=== PATIENT | male | born 1970 | race Caucasian/White ===

== ENCOUNTER 2020-04-02 10:09 | Emergency (ER) | payer SELFPAY ==
[~2020-04-02] VITALS: Ht 178 cm; Wt 88.5 kg
--- NOTE | 2020-04-02 10:26 | ED General ---
General Stated Complaint: CP;SOA Source of Information: Patient Exam Limitations: Language Barrier History of Present Illness Date Seen by Provider: Apr 02, 2020 Time Seen by Provider: 10:26 Allergies and Home Medications Allergies Coded Allergies: No Known Drug Allergies (Unverified , 04/02/20) Home Medications Doxycycline Hyclate 100 Mg Tablet, 100 MG PO BID Prescribed by: JYOTHI GOMEZ on 04/02/20 1202 Methylprednisolone 4 Mg Tab.ds.pk, 4 MG PO UD PER DOSE PACK INSTRUCTIONS Prescribed by: JYOTHI GOMEZ on 04/02/20 1202 Patient Home Medication List Home Medication List Reviewed: Yes Review of Systems Review of Systems Constitutional: No chills, No fever; malaise; No weakness EENTM: see HPI Respiratory: No cough; short of breath Cardiovascular: see HPI Gastrointestinal: diarrhea; No nausea, No vomiting Genitourinary: no symptoms reported Skin: no symptoms reported Psychiatric/Neurological: No Symptoms Reported Hematologic/Lymphatic: No Symptoms Reported Past Oltnqbl-Tqmiec-Xdscfk Hx Past Med/Social Hx: Reviewed Nursing Past Med/Soc Hx Physical Exam Vital Signs Vital Signs - First Documented 04/02/20 10:10 Temp 37.7 Pulse 89 Resp 26 B/P (MAP) 127/81 (96) Pulse Ox 92 O2 Delivery Room Air Capillary Refill : Height, Weight, BMI Height: '" Weight: lbs. oz. kg; BMI Method: General Appearance: No Apparent Distress, WD/WN Neck: Non Tender Respiratory: Decreased Breath Sounds; No Wheezing Cardiovascular: Regular Rate, Rhythm Gastrointestinal: Non Tender, Soft Neurologic/Psychiatric: Alert, Oriented x3, Normal Mood/Affect, puller out II-XII Norm as Tested Skin: Normal Color, Warm/Dry Focused Exam Lactate Level 04/02/20 10:28: Lactic Acid Level 0.80 Lactic Acid Level Progress/Results/Core Measures Suspected Sepsis SIRS Temperature: Pulse: Respiratory Rate: Laboratory Tests 04/02/20 10:28: White Blood Count 9.7 Blood Pressure / Mean: 04/02/20 10:28: Lactic Acid Level 0.80 Laboratory Tests 04/02/20 10:28: Creatinine 0.68, INR Comment 1.0, Platelet Count 152, Total Bilirubin 0.5 Results/Orders Lab Results Laboratory Tests Test 04/02/20 10:28 Range/Units White Blood Count 9.7 4.3-11.0 10^3/uL Red Blood Count 4.18 L 4.35-5.85 10^6/uL Hemoglobin 13.1 L 13.3-17.7 G/DL Hematocrit 37 L 40-54 % Mean Corpuscular Volume 90 80-99 FL Mean Corpuscular Hemoglobin 31 25-34 PG Mean Corpuscular Hemoglobin Concent 35 32-36 G/DL Red Cell Distribution Width 12.9 10.0-14.5 % Platelet Count 152 130-400 10^3/uL Mean Platelet Volume 10.6 H 7.4-10.4 FL Neutrophils (%) (Auto) 68 42-75 % Lymphocytes (%) (Auto) 18 12-44 % Monocytes (%) (Auto) 14 H 0-12 % Eosinophils (%) (Auto) 0 0-10 % Basophils (%) (Auto) 0 0-10 % Neutrophils # (Auto) 6.6 1.8-7.8 X 10^3 Lymphocytes # (Auto) 1.7 1.0-4.0 X 10^3 Monocytes # (Auto) 1.3 H 0.0-1.0 X 10^3 Eosinophils # (Auto) 0.0 0.0-0.3 10^3/uL Basophils # (Auto) 0.0 0.0-0.1 10^3/uL Prothrombin Time 13.2 12.2-14.7 SEC INR Comment 1.0 0.8-1.4 Activated Partial Thromboplast Time 33 24-35 SEC Fibrinogen 756 H 221-496 MG/DL Sodium Level 132 L 135-145 MMOL/L Potassium Level 4.1 3.6-5.0 MMOL/L Chloride Level 101 98-107 MMOL/L Carbon Dioxide Level 22 21-32 MMOL/L Anion Gap 9 5-14 MMOL/L Blood Urea Nitrogen 8 7-18 MG/DL Creatinine 0.68 0.60-1.30 MG/DL Estimat Glomerular Filtration Rate > 60 BUN/Creatinine Ratio 12 Glucose Level 116 H 70-105 MG/DL Lactic Acid Level 0.80 0.50-2.00 MMOL/L Calcium Level 8.4 L 8.5-10.1 MG/DL Corrected Calcium 8.7 8.5-10.1 MG/DL Total Bilirubin 0.5 0.1-1.0 MG/DL Aspartate Amino Transf (AST/SGOT) 85 H 5-34 U/L Alanine Aminotransferase (ALT/SGPT) 97 H 0-55 U/L Alkaline Phosphatase 65 40-136 U/L Lactate Dehydrogenase 536 H 125-220 U/L Troponin I < 0.028 <0.028 NG/ML C-Reactive Protein High Sensitivity 7.94 H 0.00-0.50 MG/DL Total Protein 7.1 6.4-8.2 GM/DL Albumin 3.6 3.2-4.5 GM/DL My Orders Orders - GOMEZ,JYOTHI L DO Vital Signs: Every 4 Hours (Or (04/02/20 10:40) Monitor-Rhythm Ecg Trace Only (04/02/20 10:40) Ed Iv/Invasive Line Start (04/02/20 10:40) Cbc With Automated Diff (04/02/20 10:40) Comprehensive Metabolic Panel (04/02/20 10:40) Ferritin (04/02/20 10:40) LDH (04/02/20 10:40) Hs C Reactive Protein (04/02/20 10:40) Troponin I (04/02/20 10:40) Lactic Acid Analyzer (04/02/20 10:40) Protime With Inr (04/02/20 10:40) Partial Thromboplastin Time (04/02/20 10:40) Fibrinogen (04/02/20 10:40) Ekg Tracing (04/02/20 10:40) Chest 1 View, Ap/Pa Only (04/02/20 10:40) Coronavirus Sars-Cov-2 So 2018 (04/02/20 10:51) Dexamethasone Injection (Decadron Inject (04/02/20 11:00) Rx-Albuterol Inhaler (Rx-Proair) (04/02/20 10:53) Albuterol Inhaler (Ventolin Hfa) (04/02/20 11:00) Medications Given in ED Current Medications Medications Dose Ordered Sig/Shayla Route Start Time Stop Time Status Last Admin Dose Admin Albuterol Sulfate 2 PUFFS RTQ4HR PRN IH 04/02/20 11:00 04/02/20 13:00 DC 04/02/20 11:13 8 GM Dexamethasone Sodium Phosphate 10 mg ONCE ONCE IV 04/02/20 11:00 04/02/20 11:01 DC 04/02/20 11:11 10 MG Vital Signs/I&O 04/02/20 04/02/20 10:10 13:00 Temp 37.7 Pulse 89 87 Resp 26 16 B/P (MAP) 127/81 (96) 127/82 Pulse Ox 92 93 O2 Delivery Room Air Room Air Capillary Refill : Progress Note : Progress Note Patient with likely coronavirus. He has bilateral infiltrates on x-ray that is consistent with coronavirus x-ray. His oxygen saturation is running mid upper 90s. I will discharge him with doxycycline, Solu-Medrol. He was given instructions to return to the ER as needed. I did use an seismic interpreter to review his x-ray, labs, medications and need to return to the ER. Patient voiced understanding. I also discussed with him that he should consider himself p ositive for coronavirus based on his lab work and x-rays, and he will be tested and notified of the results if positive. Departure Impression Primary Impression: Pneumonia Qualified Codes: J18.1 - Lobar pneumonia, unspecified organism Additional Impression: Viral respiratory illness Disposition: 01 HOME, SELF-CARE Condition: Stable Departure-Patient Inst. Patient Instructions: Coronavirus Disease 2019 (COVID-19) (DC), Pneumonia in Adults Scripts Methylprednisolone (Methylprednisolone Dose Pack) 4 Mg Tab.ds.pk 4 MG PO UD for 6 Days, #21 PKG PER DOSE PACK INSTRUCTIONS Prov: JYOTHI GOMEZ DO 04/02/20 Doxycycline Hyclate (Doxycycline Hyclate) 100 Mg Tablet 100 MG PO BID, #20 TAB 0 Refills Prov: JYOTHI GOMEZ DO 04/02/20 JYOTHI GOMEZ DO Apr 02, 2020 10:26
[2020-04-02] MEDS ORDERED: RT-ALBUTEROL/IPRATROPIUM 3 ML (DUONEB) VIAL IH PRN (10:45)
[2020-04-02 10:51] LABS: BASOPHILS % (AUTO) 0 % (0-10); EOSINOPHILS % (AUTO) 0 % (0-10); HEMATOCRIT 37 % (40-54); HEMOGLOBIN 13.1 G/DL (13.3-17.7); LYMPHOCYTES # (AUTO) 1.7 X 10^3 (1.0-4.0); LYMPHOCYTES % (AUTO) 18 % (12-44); MEAN CORPUSCULAR HEMOGLOBIN 31 PG (25-34); MEAN CORPUSCULAR HGB CONC 35 G/DL (32-36); MEAN CORPUSCULAR VOLUME 90 FL (80-99); MEAN PLATELET VOLUME 10.6 FL (7.4-10.4); MONOCYTES # (AUTO) 1.3 X 10^3 (0.0-1.0); MONOCYTES % (AUTO) 14 % (0-12); NEUTROPHILS # (AUTO) 6.6 X 10^3 (1.8-7.8); NEUTROPHILS % (AUTO) 68 % (42-75); PLATELET COUNT 152 10^3/uL (130-400); RED CELL DISTRIBUTION WIDTH 12.9 % (10.0-14.5); WHITE BLOOD COUNT 9.7 10^3/uL (4.3-11.0)
[2020-04-02] MEDS ORDERED: DEXAMETHASONE 10 MG/ML (DECADRON) 1 ML VIAL IV ONE (11:00)
[2020-04-02] MEDS ORDERED: RT-ALBUTEROL INHALER HFA (VENTOLIN HFA) 8 GM IH PRN (11:00)
--- NOTE | 2020-04-02 11:00 | NUR ---
ASSUMED CARE OF PT
[2020-04-02 11:02] LABS: ALBUMIN 3.6 GM/DL (3.2-4.5); CHLORIDE 101 MMOL/L (98-107); POTASSIUM 4.1 MMOL/L (3.6-5.0); SODIUM 132 MMOL/L (135-145)
[2020-04-02 11:03] LABS: CALCIUM 8.4 MG/DL (8.5-10.1)
[2020-04-02 11:04] LABS: GLUCOSE 116 MG/DL (70-105); TOTAL PROTEIN 7.1 GM/DL (6.4-8.2)
[2020-04-02 11:06] LABS: BILIRUBIN,TOTAL 0.5 MG/DL (0.1-1.0); CARBON DIOXIDE 22 MMOL/L (21-32)
[2020-04-02 11:08] LABS: ALKALINE PHOSPHATASE 65 U/L (40-136); CREATININE SERUM 0.68 MG/DL (0.60-1.30); GFR ESTIMATED > 60
[2020-04-02 11:09] LABS: BUN/CREATININE RATIO 12
[2020-04-02 11:11] LABS: ALANINE AMINOTRANSFERASE 97 U/L (0-55)
[2020-04-02] MEDS: RX-ALBUTEROL INHALER 8 GM HFA (VENTOLIN) IH STA ×2 (11:11→11:13)
--- NOTE | 2020-04-02 11:43 | Diagnostic Imaging Report ---
INDICATION: Shortness of air. TIME OF EXAM: 11:07 AM No prior studies are available for comparison. FINDINGS: Right hemidiaphragm is elevated. There appears to be some airspace density right mid and lower lung field as well as left mid lung. No effusion or pneumothorax is identified. IMPRESSION: Patchy bilateral airspace infiltrate suggestive of pneumonia. Dictated by: Dictated on workstation # [id number]
--- NOTE | 2020-04-02 11:57 | NUR ---
DR GOMEZ NOTIFIED OF LABS BEING BACK.
[2020-04-02] MEDS ORDERED: METH4TAB10 PO (12:02)
[2020-04-02] MEDS ORDERED: DOXY100T2 PO (12:02)
[2020-04-02 12:37] LABS: PROTHROMBIN TIME PATIENT 13.2 SEC (12.2-14.7)
[2020-04-02 13:00] VITALS: BP 127/82
== END 2020-04-02 13:00 | disposition home or self-care (01) ==
LOC: EDBD 10:11 → ER 10:11
DX: U07.1 COVID-19 (principal); J12.89 Other viral pneumonia; J98.8 Other specified respiratory disorders
CPT/HCPCS: 71045; 80053; 82728; 83605; 83615; 84484; 85025; 85384; 85610; 85730; 86141; 93005; 93041; 96374; 99284; U0002; 36415; 87635

== ENCOUNTER 2021-06-12 06:41 | Emergency (ER) | payer SELFPAY ==
[~2021-06-12] VITALS: Ht 155 cm; Wt 84.4 kg
[~2021-06-12 06:41] MED LIST: DOXY100T2 PO; METH4TAB10 PO
--- OUTSIDE RECORDS SUMMARY | 2021-06-12 06:48 | XMS REPORT | Clinical Summary ---
Author Author [facility] Organization [facility] Address Unknown Phone Unavailable Care Team Providers Care Fruit Culler Name Role Phone No Pcp, Na PCP Unavailable Source Comments Some departments are not documenting in the electronic medical record. If you d o not see the information that you expected, contact Release of Information in [facility] [employer] Information Management department at [phone] for further assistan ce in locating additional records.[facility] Allergies No Known Active Allergies Medications End Date Status Medication Sig Dispensed Refills Start Date Active adek multivitamin (MVW Take by 0 COMPLETE) 3,000-800 mouth daily. 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 application of wound vac pe rformed by Zach Elias MD at [facility] Medical devices from this surgery are i n the Implants section. BYPASS GRAFT 07/24/2018 Arm Upper/Left LEFT BRACHIAL A RTERY RECONSTRUCTION WITH INTERPOSITION RIGHT GREAT SAPHENOUS VEI N GRAFT performed by Darshan Jurado MD at [facility] FASCIOTOMY 07/24/2018 Lower Arm/Left DECOMPRESSION F ASCIOTOMY FOREARM/ WRIST FLEXOR/ EXTENSOR COMPARTMENT WITHOUT DEBRIDEMEN T NONVIABLE MUSCLE/ NERVE performed by Rudi Elias MD at [facility] ELBOW SURGERY 08/14/2019 Elbow/Left CONTRACTURE REL EASE LEFT ELBOW performed by Rex Agarwal MD at [facility] NERVE SURGERY 08/14/2019 Elbow/Left ULNAR NERVE TRA NSPOSITION LEFT ELBOW performed by Rex Agarwal MD at [facility] HARDWARE REMOVAL 07/08/2020 Lower Arm/Left REMOVAL OF SIMMONS RDWARE LEFT HAND performed by Rex Agarwal MD at [facility] OR Medical devices from this surgery are i n the Implants section. NERVE SURGERY 07/08/2020 Lower Arm/Left LEFT HAND SENSO RY NERVE TRANSFER performed by Rex Agarwal MD at [facility] OR Medical devices from this surgery are i n the Implants section. Medical History Medical History Date Comments Rhabdomyolysis GERD (gastroesophageal reflux disease) Social History Date Tobacco Use Types Packs/Day Years Used Never Smoker Smokeless Tobacco: Never Used Comments Alcohol Use Standard Drinks/Week No 0 (1 standard drink = 0.6 o z pure alcohol) Sex Assigned at Date Recorded Male 02/11/2020 3:45 PM CDT Last Filed Vital Signs Reading Time Taken Comments Vital Sign 113/93 07/08/2020 4:15 PM CDT Blood Pressure 89 07/08/2020 4:15 PM CDT Pulse 36.5 C (97.7 F) 07/08/2020 4:15 PM CDT Temperature 20 08/10/2018 2:17 PM [employer] Respiratory Rate 97% 07/08/2020 4:00 PM CDT Oxygen Saturation - - Inhaled Oxygen Concentration 84.4 kg (186 lb) 02/11/2021 2:08 PM CDT Weight 170.2 cm (5' 7.01") 02/11/2021 2:08 PM CDT Height 29.12 02/11/2021 2:08 PM CDT Body Mass Index Plan of Treatment Health Maintenance Due Date Last Done Comments HIV SCREENING 1984 DTAP/TDAP VACCINES (1 - 12/03/1987 Tdap) HEPATITIS C SCREENING 12/03/1987 PHYSICAL (COMPREHENSIVE) 12/03/1987 EXAM COLORECTAL CANCER 12/03/2019 SCREENING SHINGLES RECOMBINANT 12/03/2019 VACCINE (1 of 2) INFLUENZA VACCINE 07/03/2021 Implants Device Identifier Shelf Expiration Date Model / Serial / L ot Implanted Type Area Manufactur er [id number] / N/A / N/A Plate 72mm Stainless Steel 2.7mm Left: Ulmynor ZIMM ER Screw [place] Lock System - Sn/A SHELLIE US Implanted: Qty: 1 on 07/27/2018 by Zach Elias MD at [facility] [id number] / N/A / N/A Screw Bone 2.7mm 2.5mm 16mm Left: Ulna SHELLIE Stainless Steel Cortical Self - SHELLIE US Sn/A Implanted: Qty: 3 on 07/27/2018 by Zach Elias MD at [facility] [id number] / N/A / N/A Screw Bone 2.7mm 2.5mm 18mm Left: Ulna SHELLIE Stainless Steel Small Hexagon - SHELLIE US Sn/A Implanted: Qty: 2 on 07/27/2018 by Zach Elias MD at [facility] [id number] / N/A / N/A Plate 105mm Stainless Steel 3.5mm Left: Ulna ZIM LEWIS Screw Small Fragment - Sn/A SHELLIE US Implanted: Qty: 1 on 07/27/2018 by Zach Elias MD at [facility] [id number] / N/A / N/A Screw Bone 3.5mm 2.5mm 18mm Left: Ulna SHELLIE Stainless Steel Small Hexagon - SHELLIE US Sn/A Implanted: Qty: 2 on 07/27/2018 by Zach Elias MD at [facility] [id number] / N/A / N/A Screw Bone 3.5mm 2.5mm 20mm Left: Ulna SHELLIE Stainless Steel Self Tap Small - SHELLIE US Sn/A Implanted: Qty: 1 on 07/27/2018 by Zach Elias MD at [facility] [id number] / N/A / N/A Screw Bone 3.5mm 2.5mm 22mm Left: Ulna SHELLIE Stainless Steel Small Hexagon - SHELLIE US Sn/A Implanted: Qty: 1 on 07/27/2018 by Zach Elias MD at [facility] Device Identifier Shelf Expiration Date Model / Serial / L ot Explanted Type Area Manufactur er [id number]-71-025 / [id number]-71-025 / [id number]-71-025 Wire Fixation .062mm 6in Argelia Left: Hand KE Y Stainless Steel Trocar - [id number]-[id number] SURGICAL Implanted: Qty: 1 on 03/18/2020 by INC eRx Agarwal MD at [facility] Explanted: Qty: 1 on 07/08/2020 at [facility] KI-71-023 / [id number]-71-023 / [id number]-[id number] Wire Fixation 6in .045in Steinmann Left: Hand KE Y Argelia 2 Trocar - [id number] SURGICAL Implanted: Qty: 4 on 03/18/2020 by INC Rex Agarwal MD at [facility] Explanted: Qty: 4 on 07/08/2020 at [facility] Results Not on filefrom Last 3 Months Insurance Type Payer Benefit Subscriber ID Effective Phone Address Plan / Dates Group Indemnity WORKERS COMP GENERIC [id number] 2018 WORK COMP -Present -2006 [employer] Personal/F Self [address] [place] (Home) [place] [address] 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 needed
[2021-06-12] MEDS ORDERED: OMEP40CA6 PO (07:14)
[2021-06-12] MEDS ORDERED: AMOX875T2 PO (07:14)
[2021-06-12] MEDS ORDERED: biaxin (07:14)
[2021-06-12 07:26] LABS: CLARITY,URINE CLEAR; COLOR,URINE YELLOW; GLUCOSE, URINE (UA) NEGATIVE (NEGATIVE); KETONES,URINE TRACE (NEGATIVE); LEUKOCYTE ESTERASE ,URINE NEGATIVE (NEGATIVE); NITRITE,URINE NEGATIVE (NEGATIVE); PROTEIN,URINE 1+ (NEGATIVE)
[2021-06-12 07:27] LABS: MEAN CORPUSCULAR VOLUME 86 fL (80-99)
[2021-06-12 07:29] LABS: BASOPHILS # (AUTO) 0.1 10^3/uL (0.0-0.1); BASOPHILS % (AUTO) 0 % (0-10); EOSINOPHILS % (AUTO) 0 % (0-10); HEMATOCRIT 40 % (40-54); HEMOGLOBIN 12.8 g/dL (13.3-17.7); LYMPHOCYTES # (AUTO) 4.4 10^3/uL (1.0-4.0); LYMPHOCYTES % (AUTO) 24 % (12-44); MEAN CORPUSCULAR HEMOGLOBIN 27 pg (25-34); MEAN CORPUSCULAR HGB CONC 32 g/dL (32-36); MONOCYTES # (AUTO) 7.3 10^3/uL (0.0-1.0); MONOCYTES % (AUTO) 40 % (0-12); NEUTROPHILS # (AUTO) 5.1 10^3/uL (1.8-7.8); NEUTROPHILS % (AUTO) 28 % (42-75); WHITE BLOOD COUNT 18.3 10^3/uL (4.3-11.0)
[2021-06-12 07:32] LABS: PLATELET COUNT 15 10^3/uL (130-400)
[2021-06-12 07:37] LABS: ALBUMIN 3.9 GM/DL (3.2-4.5)
[2021-06-12 07:39] LABS: TOTAL PROTEIN 7.4 GM/DL (6.4-8.2)
[2021-06-12 07:41] LABS: BILIRUBIN,TOTAL 0.6 MG/DL (0.1-1.0)
[2021-06-12 07:41] LABS: BILIRUBIN,URINE 1+ (NEGATIVE); WBC,URINE 0-2 /HPF
[2021-06-12 07:42] LABS: BACTERIA,URINE FEW /HPF; SQUAMOUS EPITHELIAL CELL,UR 0-2 /HPF
[2021-06-12 07:43] LABS: CREATININE SERUM 0.83 MG/DL (0.60-1.30)
[2021-06-12] MEDS ORDERED: PANTOPRAZOLE 40 MG (PROTONIX) VIAL IV ONE (07:45)
[2021-06-12] MEDS ORDERED: NS IV 1000 ML 1,000 ML IV SCH (07:45)
[2021-06-12 08:06] LABS: BASOPHILS # (AUTO) 0.1 10^3/uL (0.0-0.1); BASOPHILS % (AUTO) 0 % (0-10)
[2021-06-12 08:08] LABS: EOSINOPHILS % (AUTO) 0 % (0-10); HEMATOCRIT 37 % (40-54); HEMOGLOBIN 11.9 g/dL (13.3-17.7); LYMPHOCYTES % (AUTO) 19 % (12-44); MEAN CORPUSCULAR HEMOGLOBIN 27 pg (25-34); MEAN CORPUSCULAR HGB CONC 32 g/dL (32-36); MEAN CORPUSCULAR VOLUME 86 fL (80-99); MONOCYTES # (AUTO) 7.2 10^3/uL (0.0-1.0); MONOCYTES % (AUTO) 46 % (0-12); NEUTROPHILS # (AUTO) 4.4 10^3/uL (1.8-7.8); NEUTROPHILS % (AUTO) 28 % (42-75); WHITE BLOOD COUNT 15.7 10^3/uL (4.3-11.0)
[2021-06-12 08:16] LABS: PLATELET COUNT 12 10^3/uL (130-400)
--- NOTE | 2021-06-12 08:35 | Diagnostic Imaging Report ---
EXAM: ACUTE ABD SERIES INDICATION: Abdominal pain. COMPARISON: Chest radiograph 04/02/2020. FINDINGS: Mild atelectasis or infiltrate left lung base. Normal heart size and central pulmonary vascularity. No pleural effusion or pneumothorax. No acute osseous findings. No free intraperitoneal air. Nonspecific bowel gas pattern. No suspicious radiopaque densities. IMPRESSION: 1. No acute radiographic findings in the abdomen. 2. Mild atelectasis or infiltrate in the left lung base. Dictated by: Dictated on workstation # [id number]
[2021-06-12] MEDS ORDERED: IOHEXOL 350 MG/ML 100 ML (OMNIPAQUE 350) VIAL IV ONE (08:45)
[2021-06-12] MEDS ORDERED: NS 100 ML (IVPB) BAG IV ONE (08:45)
[2021-06-12] MEDS ORDERED: HOLD METFORMIN - RECEIVED CONTRAST 20 ML VIAL IV SCH (08:45)
--- NOTE | 2021-06-12 08:58 | Diagnostic Imaging Report ---
PROCEDURE: CT abdomen and pelvis with contrast. TECHNIQUE: Multiple contiguous axial images were obtained through the abdomen and pelvis after administration of intravenous contrast. Auto Exposure Controls were utilized during the CT exam to meet ALARA standards for radiation dose reduction. All CT scans use one or more of the following dose optimizing techniques: automated exposure control, MA and/or KvP adjustment based on patient size and exam type or iterative reconstruction. INDICATION: Abdominal pain Mild low-density in the liver is likely due to steatosis. Otherwise, there is no evidence of focal hepatic, gallbladder, pancreatic, adrenal gland or splenic abnormality. Kidneys are also unremarkable. There is no free fluid within the abdomen or pelvis. No pathologically enlarged adenopathy is seen. The appendix has a normal appearance. Unopacified bladder is unremarkable in appearance. There is no evidence of aortic aneurysm or dissection. IMPRESSION: No acute abnormality. Dictated by: Dictated on workstation # [id number]
--- NOTE | 2021-06-12 09:09 | ED Abdominal Pain ---
General Chief Complaint: Abdominal/GI Problems Stated Complaint: ABD PAIN Nursing Triage Note: c/o epigastric pain x15 days, seen at [facility] for same 06/06/21 started on abx et. prilosec. Source of Information: Patient (PT SPEAKS MINIMAL MONTSERRATIAN--USING LANGUAGE LINE/EDITOR TRADE JOURNAL MARICHUY ON CELL PHONE) Exam Limitations: Language Barrier History of Present Illness Date Seen by Provider: Jun 12, 2021 Time Seen by Provider: 07:14 Initial Comments PT ARRIVES VIA POV FROM HOME C/O EPIGASTRIC ABDOMINAL PAIN X 15 DAYS NOTHING WORSENS OR IMPROVES PAIN PAIN IS CONSTANT + NAUSEA, NO VOMITING HAD NORMAL BM THIS AM NO URINARY SYMPTOMS NO FEVER PT HAS BEEN EATING AND DRINKING NORMALLY PT HAS RX'S FOR AMOXIL, CLARITHROMYCIN, OMEPRAZOLE DATED 06/06/21 FROM [facility] PT DOES NOT KNOW WHAT HE WAS DX WITH AND CANNOT STATE WHAT TESTS WERE DONE. DENIES ANY HISTORY OF ABDOMINAL SURGERIES OR GI PROBLEMS PCP: [facility] Allergies and Home Medications Allergies Coded Allergies: No Known Drug Allergies (Unverified , 04/02/20) Patient Home Medication List Home Medication List Reviewed: Yes Amoxicillin (Amoxicillin) 875 Mg Tablet, Unknown Dose PO, (Reported) Entered as Reported by: ALETHEA BUSBY on 06/12/21713 Last Action: New Order Doxycycline Hyclate (Doxycycline Hyclate) 100 Mg Tablet, 100 MG PO BID Prescribed by: JYOTHI GOMEZ on 04/02/20 1202 Methylprednisolone (Methylprednisolone Dose Pack) 4 Mg Tab.ds.pk, 4 MG PO UD Prescribed by: JYOTHI GOMEZ on 04/02/20 1202 Omeprazole (Omeprazole) 40 Mg Capsule.dr, Unknown Dose PO, (Reported) Entered as Reported by: ALETHEA BUSBY on 06/12/21713 Last Action: New Order [biaxin] , (Reported) Entered as Reported by: ALETHEA BUSBY on 06/12/21713 Last Action: New Order Review of Systems Review of Systems Constitutional: no symptoms reported EENTM: No Symptoms Reported Respiratory: No Symptoms Reported Cardiovascular: No Symptoms Reported Gastrointestinal: See HPI, Abdominal Pain; Denies Constipated, Denies Diarrhea; Nausea; Denies Poor Appetite, Denies Vomiting Genitourinary: No Symptoms Reported Musculoskeletal: no symptoms reported; No back pain Skin: no symptoms reported Psychiatric/Neurological: No Symptoms Reported Endocrine: No Symptoms Reported Hematologic/Lymphatic: No Symptoms Reported; Denies Anemia, Denies Blood Clots, Denies Easy Bleeding, Denies Easy Bruising, Denies Swollen Glands Past Cdbidui-Lqqlwt-Wgnmbp Hx Patient Social History Tobacco Use?: No Use of E-Cig and/or Vaping dev: No Substance use?: No Alcohol Use?: No Pt feels they are or have been: No Immunizations Up To Date Tetanus Booster (TDap): Unknown First/Initial COVID19 Vaccinat: 06/06/21 Seasonal Allergies Seasonal Allergies: No Past Medical History Surgery/Hospitalization HX: MULTIPLE ORTHOPEDIC SURGERIES RELATED TO AN ACCIDENT 07/2018--AT [facility]: -LEFT FOREARM FX/EXTERNAL AND INTERNAL FIXATION 07/27/2018 -LEFT FOREARM /WRIST FLEXOR AND EXTENSOR COMPARTMENT FASCIOTOMY 07/24/18 -SKIN GRAFT FROM LEFT THIGH TO LEFT FORARM -LEFT BRACHIAL ARTERY RECONSTRUCTION WITH BYPASS GRAFT FROM RIGHT GREAT SAPHENOUS VEIN 07/24/18 -LEFT ELBOW CONTRACTURE RELEASE 08/14/19 -LEFT ULNAR NERVE TRANSPOSITION 08/14/19 -LEFT HAND FX/ORIF 03/18/20 -REMOVAL OF HARDWARE LEFT HAND 07/08/2020 -LEFT HAND SENSORY NERVE TRANSFER 07/08/2020 Surgeries: Yes Orthopedic Respiratory: No Cardiac: No Neurological: No Genitourinary: No Gastrointestinal: Yes Gastroesophageal Reflux Musculoskeletal: Yes (EXTENISVE ORTHO SURGERIES LEFT ARM DUE TO TRAUMA WITH RHABDOMYOLYSIS) Endocrine: No HEENT: No Cancer: No Psychosocial: No Integumentary: No Blood Disorders: No Physical Exam Vital Signs Vital Signs - First Documented 06/12/21 07:05 Temp 36.5 Pulse 111 Resp 18 B/P (MAP) 119/82 (94) Pulse Ox 99 O2 Delivery Room Air Capillary Refill : Less Than 3 Seconds Height/Weight/BMI Height: '" Weight: lbs. oz. kg; 35.00 BMI Method: General Appearance: WD/WN, no apparent distress, other (DOES NOT APPEAR ILL OR TO BE IN ANY DISCOMFORT OR DISTRESS.) HEENT: PERRL/EOMI; No scleral icterus (R), No scleral icterus (L), No pale conjunctivae (R), No pale conjunctivae (L) Neck: normal inspection Respiratory: normal breath sounds, no respiratory distress, no accessory muscle use Cardiovascular: normal peripheral pulses, regular rate, rhythm, no edema, no JVD, no murmur Gastrointestinal: normal bowel sounds, soft, no organomegaly, no pulsatile mass; No distended, No guarding, No rebound; tenderness (VERY MILD EPIGASTRIC TENDERNESS); No hernia, No mass Extremities: normal range of motion, no pedal edema, other (EXTENSIVE POST OP CHANGES TO LEFT ARM) Back: normal inspection, no CVA tenderness, no vertebral tenderness Neurologic/Psychiatric: 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, no motor/sensory deficits, alert, normal mood/affect, oriented x 3 Skin: normal color (PT IS ), warm/dry; No ecchymosis, No mottled, No rash; other (NO PETECHIAE OR PURPURA) Progress/Results/Core Measures Results/Orders Lab Results Laboratory Tests Test 06/12/21 07:18 06/12/21 07:19 06/12/21 08:03 06/12/21 10:08 Range/Units White Blood Count 18.3 H 15.7 H 4.3-11.0 10^3/uL Red Blood Count 4.69 4.34 4.30-5.52 10^6/uL Hemoglobin 12.8 L 11.9 L 13.3-17.7 g/dL Hematocrit 40 37 L 40-54 % Mean Corpuscular Volume 86 86 80-99 fL Mean Corpuscular Hemoglobin 27 27 25-34 pg Mean Corpuscular Hemoglobin Concent 32 32 32-36 g/dL Red Cell Distribution Width 14.7 H 14.6 H 10.0-14.5 % Platelet Count 15 *L 12 *L 130-400 10^3/uL Mean Platelet Volume 9.0-12.2 fL Immature Granulocyte % (Auto) 8 6 % Neutrophils (%) (Auto) 28 L 28 L 42-75 % Lymphocytes (%) (Auto) 24 19 12-44 % Monocytes (%) (Auto) 40 H 46 H 0-12 % Eosinophils (%) (Auto) 0 0 0-10 % Basophils (%) (Auto) 0 0 0-10 % Neutrophils # (Auto) 5.1 4.4 1.8-7.8 10^3/uL Lymphocytes # (Auto) 4.4 H 3.0 1.0-4.0 10^3/uL Monocytes # (Auto) 7.3 H 7.2 H 0.0-1.0 10^3/uL Eosinophils # (Auto) 0.0 0.0 0.0-0.3 10^3/uL Basophils # (Auto) 0.1 0.1 0.0-0.1 10^3/uL Immature Granulocyte # (Auto) 1.5 H 1.0 H 0.0-0.1 10^3/uL Neutrophils % (Manual) 33 % Lymphocytes % (Manual) 23 % Monocytes % (Manual) 35 % Promonocyte % 3 % Eosinophils % (Manual) 0 % Basophils % (Manual) 0 % Band Neutrophils 0 % Blast Cells 6 % Percent Immature Platelet Fraction 13.1 H 13.9 H 0.0-7.6 % Anisocytosis SLIGHT Sodium Level 136 135-145 MMOL/L Potassium Level 4.0 3.6-5.0 MMOL/L Chloride Level 105 98-107 MMOL/L Carbon Dioxide Level 22 21-32 MMOL/L Anion Gap 9 5-14 MMOL/L Blood Urea Nitrogen 10 7-18 MG/DL Creatinine 0.83 0.60-1.30 MG/DL Estimat Glomerular Filtration Rate 98 BUN/Creatinine Ratio 12 Glucose Level 107 H 70-105 MG/DL Calcium Level 9.0 8.5-10.1 MG/DL Corrected Calcium 9.1 8.5-10.1 MG/DL Total Bilirubin 0.6 0.1-1.0 MG/DL Aspartate Amino Transf (AST/SGOT) 28 5-34 U/L Alanine Aminotransferase (ALT/SGPT) 42 0-55 U/L Alkaline Phosphatase 86 40-136 U/L Total Protein 7.4 6.4-8.2 GM/DL Albumin 3.9 3.2-4.5 GM/DL Amylase Level 40 25-125 U/L Lipase 28 8-78 U/L Urine Color YELLOW Urine Clarity CLEAR Urine pH 6.0 5-9 Urine Specific [place] >=1.030 1.016-1.022 Urine Protein 1+ H NEGATIVE Urine Glucose (UA) NEGATIVE NEGATIVE Urine Ketones TRACE H NEGATIVE Urine Nitrite NEGATIVE NEGATIVE Urine Bilirubin 1+ H NEGATIVE Urine Urobilinogen 1.0 < = 1.0 MG/DL Urine Leukocyte Esterase NEGATIVE NEGATIVE Urine RBC (Auto) 3+ H NEGATIVE Urine RBC 10-25 H /HPF Urine WBC 0-2 /HPF Urine Squamous Epithelial Cells 0-2 /HPF Urine Crystals NONE /LPF Urine Bacteria FEW H /HPF Urine Casts NONE /LPF Urine Mucus MODERATE H /LPF Urine Culture Indicated NO SARS-CoV-2 RNA (RT-PCR) Not Detected Not Detecte My Orders Orders - MIHIR CURTIS DO Ed Iv/Invasive Line Start (06/12/21 07:14) Amylase (06/12/21 07:14) Cbc With Automated Diff (06/12/21 07:14) Comprehensive Metabolic Panel (06/12/21 07:14) Lipase (06/12/21 07:14) Ua Culture If Indicated (06/12/21 07:14) Manual Differential (06/12/21 07:18) Ed Iv/Invasive Line Start (06/12/21 07:36) Ns Iv 1000 Ml (Sodium Chloride 0.9%) (06/12/21 07:45) Pantoprazole Injection (Protonix Injecti (06/12/21 07:45) Cbc With Automated Diff (06/12/21 07:52) Ct Abdomen/Pelvis W (06/12/21 07:56) Acute Abd Series (06/12/21 07:56) Iohexol Injection (Omnipaque 350 Mg/Ml 1 (06/12/21 08:45) Received Contrast (Hold Metformin- Contr (06/12/21 08:45) Ns (Ivpb) (Sodium Chloride 0.9% Ivpb Bag (06/12/21 08:45) Covid 19 Inhouse Test (06/12/21 10:04) Isolation Central Supply Req (06/12/21 10:04) Medications Given in ED Vital Signs/I&O 06/12/21 06/12/21 07:05 14:14 Temp 36.5 36.5 Pulse 111 87 Resp 18 16 B/P (MAP) 119/82 (94) 112/60 Pulse Ox 99 96 O2 Delivery Room Air Room Air Blood Pressure Mean: 94 Progress Progress Note : Progress Note NO DETERIORATION IN PT'S CONDITION DURING ER STAY NO COMPLAINTS FOR REMAINDER OF ER STAY. Diagnostic Imaging Comments PER RADIOLOGIST REPORTS AT 0908: ABDOMEN XRAYS-- FINDINGS: Mild atelectasis or infiltrate left lung base. Normal heart size and central pulmonary vascularity. No pleural effusion or pneumothorax. No acute osseous findings. No free intraperitoneal air. Nonspecific bowel gas pattern. No suspicious radiopaque densities. IMPRESSION: 1. No acute radiographic findings in the abdomen. 2. Mild atelectasis or infiltrate in the left lung base. CT ABDOMEN/PELVIS-- Mild low-density in the liver is likely due to steatosis. Otherwise, there is no evidence of focal hepatic, gallbladder, pancreatic, adrenal gland or splenic abnormality. Kidneys are also unremarkable. There is no free fluid within the abdomen or pelvis. No pathologically enlarged adenopathy is seen. The appendix has a normal appearance. Unopacified bladder is unremarkable in appearance. There is no evidence of aortic aneurysm or dissection. IMPRESSION: No acute abnormality. Reviewed: Reviewed by Me Departure Communication (Admissions) 924--SPOKE WITH DR. CALLEJAS, SURGEON, HE WILL SEE PT IN OFFICE ON Tuesday--SPOKE WITH DR. DOMINGO, HEMATOLOGY/ONCOLOGY, HE ADVISES PERIPHERAL SMEAR 934--SPOKE WITH DR. ARMSTRONG, HOSPITALIST, ACCEPTS PT FOR ADMIT, AND WILL CONSULT DR. CALLEJAS FOR ENDOSCOPY 939--RECEIVED CALL FROM DR. KENDRICK, PATHOLOGIST, REGARDING PERIPHERAL SMEAR FINDINGS--6% BLASTS, SUSPICIOUS FOR HEMATOLOGIC MALIGNANCY. 946--SPOKE WITH DR. DOMINGO AGAIN, HE ADVISES TO TRANSFER PT TO [place] OR , HE WILL NOT BE ABLE TO GET ANY RESULTS FROM [facility] BIOPSY OVER THE WEEKEND 956--CALLED VIA DANIEL MCFADDEN, ON FULL DIVERSION 957--CALLED . ILL CALL BACK 1033--SPOKE WITH DR. PERES, DIAMOND FINISHING SUPERVISOR/ONCOLOGIST, ACCEPTS PT FOR ADMIT. THEY WILL CALL BACK WITH BED ASSIGNMENT. PLAN TO DO BONE [facility]OW BIOPSY TODAY AND WILL GET RESULTS BACK TODAY. 1128--CALLED , STILL NO BED ASSIGNMENT 1221--CALLED , STILL NO BED ASSIGNMENT 1330--BED HAS BEEN ASSIGNED AT . 1335--[facility] HAS BEEN DISPATCHED FOR TRANSPORT. UPDATED DR. ARMSTRONG THAT PT WAS BEING TRANSFERRED INSTEAD OF BEING ADMITTED HERE, FOR ABOVE REASONS Impression Primary Impression: Epigastric abdominal pain Additional Impressions: Thrombocytopenia Leukocytosis Disposition: XFER SHT-TRM HOSP Condition: Stable Transfer Transfer Reason: Exceeds level of care Transfer Facility: Method of Transfer: EMS Departure-Patient Inst. Referrals: NO,LOCAL PHYSICIAN (PCP) Primary Care Physician MIHIR CURTIS DO Jun 12, 2021 09:09
[2021-06-12 10:13] LABS: BAND NEUTROPHILS 0 %; BASOPHILS % (MANUAL) 0 %; BLAST CELLS 6 %; EOSINOPHILS % (MANUAL) 0 %; LYMPHOCYTES % (MANUAL) 23 %; MONOCYTES % (MANUAL) 35 %; NEUTROPHILS % (MANUAL) 33 %
[2021-06-12 10:19] LABS: ANISOCYTOSIS SLIGHT
[2021-06-12 14:14] VITALS: BP 112/60
== END 2021-06-12 14:14 | disposition short-term general hospital (02) ==
LOC: EDUNIT# 06:41 → ER 06:44
DX: R10.13 Epigastric pain (principal); D69.6 Thrombocytopenia, unspecified; D72.829 Elevated white blood cell count, unspecified; Z79.52 Long term (current) use of systemic steroids; Z20.822 Contact with and (suspected) exposure to COVID-19
CPT/HCPCS: 36415; 74022; 74177; 80053; 81000; 82150; 83690; 85007; 85025; 85027; 87636

== ENCOUNTER 2021-11-22 09:17 | Emergency (ER) | payer OTHER ==
[~2021-11-22] VITALS: Ht 167 cm; Wt 80.7 kg
[~2021-11-22 09:17] MED LIST changes: +AMOX875T2 PO; +OMEP40CA6 PO; +biaxin
[2021-11-22] MEDS ORDERED: cefTRIAXone 1 GM PRE-MIX 50 ML IV ONE (09:45)
[2021-11-22] MEDS ORDERED: ANTACID SUSP 30 ML UDC (MYLANTA) PO ONE (09:45)
[2021-11-22] MEDS ORDERED: LIDOCAINE 2% VISCOUS 15 ML UDC PO ONE (09:45)
[2021-11-22] MEDS ORDERED: fentaNYL INJ 100 MCG/2 ML AMP IVP ONE (09:45)
[2021-11-22] MEDS ORDERED: PANTOPRAZOLE 40 MG (PROTONIX) VIAL IV ONE (09:45)
[2021-11-22] MEDS ORDERED: NS IV 1000 ML 1,000 ML IV SCH ×2 (09:45)
[2021-11-22] MEDS ORDERED: metroNIDAZOLE 500MG/100ML IVPB 100 ML IV ONE (09:45)
[2021-11-22 09:51] LABS: EOSINOPHILS % (AUTO) 0 % (0-10); HEMOGLOBIN 11.8 g/dL (13.3-17.7)
--- NOTE | 2021-11-22 09:52 | ED Abdominal Pain ---
General Chief Complaint: Abdominal/GI Problems Stated Complaint: FEVER/STOMACH PAIN Nursing Triage Note: PT PRESENTS TO ED VIA POV FROM HOME WITH COMPLAINTS OF FEVER AND INTERMITTENT ABDOMINAL PAIN X 5 DAYS. PT DENIES COUGH OR N/V/D Source of Information: Patient Exam Limitations: Language Barrier (safe deposit clerk phone line used) History of Present Illness Date Seen by Provider: Nov 22, 2021 Time Seen by Provider: 09:30 Initial Comments Patient ER by private conveyance from home with chief complaint of 5 days of intermittent abdominal pain, presently 0 out of 10 tenderness up in the epigastric and left upper quadrant of abdomen. He was recently released from where he was under treatment for leukemia but has not followed up with anybody because he states he does not have insurance. He does not have any other known medical history nor does he follow with a doctor routinely. Has been treating his fever with Tylenol with his last dose late last night. He last ate yesterday evening. No nausea vomiting diarrhea. He had a normal formed bowel movement this morning without blood in it. He is never had endoscopy or surgeries on his abdomen. No trauma. He does not have chest pain shortness of air or cough. No vaccination for Covid or influenza. No history of pancreatitis or drinking. Does not smoke and denies use of drugs. Patient states he also had some amoxicillin left over so he has been taking that but nobody has seen him for this episode of pain. O'clock he was being treated outpatient in June 2021, 5 months ago with amoxicillin clarithromycin and omeprazole presumably for H. pylori. He was admitted at that time and transferred to with suspicion of leukemia. CT of his abdomen pelvis that day did not reveal anything. Allergies and Home Medications Allergies Coded Allergies: No Known Drug Allergies (Unverified , 04/02/20) Patient Home Medication List Home Medication List Reviewed: Yes Amoxicillin (Amoxicillin) 875 Mg Tablet, Unknown Dose PO, (Reported) Entered as Reported by: ALETHEA BUSBY on 06/12/21 0714 Doxycycline Hyclate (Doxycycline Hyclate) 100 Mg Tablet, 100 MG PO BID Prescribed by: JYOTHI GOMEZ on 04/02/20 1202 Methylprednisolone (Methylprednisolone Dose Pack) 4 Mg Tab.ds.pk, 4 MG PO UD Prescribed by: JYOTHI GOMEZ on 04/02/20 1202 Omeprazole (Omeprazole) 40 Mg Capsule., Unknown Dose PO, (Reported) Entered as Reported by: ALETHEA BUSBY on 06/12/21713 [biaxin] , (Reported) Entered as Reported by: ALETHEA BUSBY on 06/12/21713 Review of Systems Review of Systems Constitutional: chills, fever, malaise EENTM: No Blurred Vision, No Double Vision Respiratory: Denies Cough, Denies Shortness of Air Cardiovascular: Denies Chest Pain, Denies Lightheadedness Gastrointestinal: Abdominal Pain; Denies Constipated, Denies Diarrhea, Denies Nausea, Denies Poor Fluid Intake Genitourinary: Denies Burning, Denies Discharge Musculoskeletal: No back pain, No joint pain Skin: No pruritus, No rash Psychiatric/Neurological: Denies Anxiety, Denies Depressed All Other Systems Reviewed Negative Unless Noted: Yes Past Qzuphmq-Aefbhb-Dowmgl Hx Patient Social History Tobacco Use?: No Use of E-Cig and/or Vaping dev: No Substance use?: No Alcohol Use?: No Pt feels they are or have been: No Immunizations Up To Date Tetanus Booster (TDap): Unknown First/Initial COVID19 Vaccinat: 06/06/21 Second COVID19 Vaccination Hung: 06/06/21 Third COVID19 Vaccination Date: 06/06/21 Seasonal Allergies Seasonal Allergies: No Past Medical History Surgery/Hospitalization HX: MULTIPLE ORTHOPEDIC SURGERIES RELATED TO AN ACCIDENT 07/2018--AT [facility]:-LEFT FOREARM FX/EXTERNAL AND INTERNAL FIXATION 07/27/2018-LEFT FOREARM /WRIST FLEXOR AND EXTENSOR COMPARTMENT FASCIOTOMY 07/24/18-SKIN GRAFT FROM LEFT THIGH TO LEFT FORARM-LEFT BRACHIAL ARTERY RECONSTRUCTION WITH BYPASS GRAFT FROM RIGHT GREATSAPHENOUS VEIN 07/24/18-LEFT ELBOW CONTRACTURE RELEASE 08/14/19-LEFT ULNAR NERVE TRANSPOSITION 08/14/19-LEFT HAND FX/ORIF 03/18/20-REMOVAL OF HARDWARE LEFT HAND 07/08/2020-LEFT HAND SENSORY NERVE TRANSFER 07/08/2020 Surgeries: Yes Orthopedic Respiratory: No Cardiac: No Neurological: No Genitourinary: No Gastrointestinal: Yes Gastroesophageal Reflux Musculoskeletal: Yes (EXTENISVE ORTHO SURGERIES LEFT ARM DUE TO TRAUMA WITH RHABDOMYOLYSIS) Endocrine: No HEENT: No Cancer: No Psychosocial: No Integumentary: No Blood Disorders: No Physical Exam Vital Signs Vital Signs - First Documented 11/22/21 09:30 Temp 38.8 Pulse 141 Resp 20 B/P (MAP) 119/71 (87) Pulse Ox 95 Capillary Refill : Less Than 3 Seconds Height/Weight/BMI Height: '" Weight: lbs. oz. kg; 28.00 BMI Method: General Appearance: WD/WN, mild distress HEENT: PERRL/EOMI, normal ENT inspection, TMs normal, pharynx normal (Oral mucosa is moist) Neck: full range of motion, supple, normal inspection Respiratory: lungs clear, normal breath sounds, no respiratory distress, no accessory muscle use Cardiovascular: normal peripheral pulses, regular rate, rhythm, no edema Peripheral Pulses: 2+ Radial Pulses (R), 2+ Radial Pulses (L) Gastrointestinal: normal bowel sounds, soft, tenderness (Epigastric and left upper quadrant without appreciable splenomegaly. ) Extremities: normal range of motion, normal inspection, normal capillary refill Neurologic/Psychiatric: alert, normal mood/affect, oriented x 3 Skin: normal color, warm/dry Focused Exam Lactate Level 11/22/21 09:30: Lactic Acid Level 1.20 Lactic Acid Level Laboratory Tests Test 11/22/21 09:30 Lactic Acid Level 1.20 MMOL/L (0.50-2.00) Progress/Results/Core Measures Results/Orders Lab Results Laboratory Tests Test 11/22/21 09:30 11/22/21 11:26 Range/Units White Blood Count 15.5 H 4.3-11.0 10^3/uL Red Blood Count 4.13 L 4.30-5.52 10^6/uL Hemoglobin 11.8 L 13.3-17.7 g/dL Hematocrit 36 L 40-54 % Mean Corpuscular Volume 87 80-99 fL Mean Corpuscular Hemoglobin 29 25-34 pg Mean Corpuscular Hemoglobin Concent 33 32-36 g/dL Red Cell Distribution Width 18.6 H 10.0-14.5 % Platelet Count 6 *L 130-400 10^3/uL Mean Platelet Volume 9.0-12.2 fL Immature Granulocyte % (Auto) 16 % Neutrophils (%) (Auto) 30 L 42-75 % Lymphocytes (%) (Auto) 28 12-44 % Monocytes (%) (Auto) 26 H 0-12 % Eosinophils (%) (Auto) 0 0-10 % Basophils (%) (Auto) 0 0-10 % Neutrophils # (Auto) 4.7 1.8-7.8 10^3/uL Lymphocytes # (Auto) 4.3 H 1.0-4.0 10^3/uL Monocytes # (Auto) 4.0 H 0.0-1.0 10^3/uL Eosinophils # (Auto) 0.0 0.0-0.3 10^3/uL Basophils # (Auto) 0.0 0.0-0.1 10^3/uL Immature Granulocyte # (Auto) 2.5 H 0.0-0.1 10^3/uL Neutrophils % (Manual) 28 % Lymphocytes % (Manual) 27 % Monocytes % (Manual) 36 % Band Neutrophils 6 % Nucleated Red Blood Cells 5 Atypical Lymphocytes 3 % Toxic Granulation 1+ Platelet Estimate DECREASED Clumped Platelets NONE OBSERVED Percent Immature Platelet Fraction 10.9 H 0.0-7.6 % Polychromasia MODERATE Hypochromasia SLIGHT Poikilocytosis SLIGHT Anisocytosis MODERATE Microcytosis SLIGHT Macrocytosis SLIGHT Spherocytes SLIGHT Prothrombin Time 15.2 H 12.2-14.7 SEC INR Comment 1.2 0.8-1.4 Activated Partial Thromboplast Time 37 H 24-35 SEC Sodium Level 134 L 135-145 MMOL/L Potassium Level 4.2 3.6-5.0 MMOL/L Chloride Level 103 98-107 MMOL/L Carbon Dioxide Level 17 L 21-32 MMOL/L Anion Gap 14 5-14 MMOL/L Blood Urea Nitrogen 12 7-18 MG/DL Creatinine 0.94 0.60-1.30 MG/DL Estimat Glomerular Filtration Rate 98 BUN/Creatinine Ratio 13 Glucose Level 118 H 70-105 MG/DL Lactic Acid Level 1.20 0.50-2.00 MMOL/L Calcium Level 8.6 8.5-10.1 MG/DL Corrected Calcium 8.8 8.5-10.1 MG/DL Total Bilirubin 1.0 0.1-1.0 MG/DL Aspartate Amino Transf (AST/SGOT) 117 H 5-34 U/L Alanine Aminotransferase (ALT/SGPT) 145 H 0-55 U/L Alkaline Phosphatase 179 H 40-136 U/L Troponin I 0.028 <0.028 NG/ML Total Protein 7.2 6.4-8.2 GM/DL Albumin 3.7 3.2-4.5 GM/DL Lipase 12 8-78 U/L Monoscreen NEGATIVE NEGATIVE Influenza Type A (RT-PCR) Not Detected Not Detecte Influenza Type B (RT-PCR) Not Detected Not Detecte SARS-CoV-2 RNA (RT-PCR) Not Detected Not Detecte Urine Color DARK YELLOW Urine Clarity SL CLOUDY Urine pH 6.5 5-9 Urine Specific Basom <=1.005 1.016-1.022 Urine Protein 1+ H NEGATIVE Urine Glucose (UA) NEGATIVE NEGATIVE Urine Ketones NEGATIVE NEGATIVE Urine Nitrite NEGATIVE NEGATIVE Urine Bilirubin 1+ H NEGATIVE Urine Urobilinogen 0.2 < = 1.0 MG/DL Urine Leukocyte Esterase NEGATIVE NEGATIVE Urine RBC (Auto) 1+ H NEGATIVE Urine RBC 0-2 /HPF Urine WBC NONE /HPF Urine Squamous Epithelial Cells RARE /HPF Urine Crystals NONE /LPF Urine Bacteria FEW H /HPF Urine Casts NONE /LPF Urine Mucus NEGATIVE /LPF Urine Culture Indicated CULTURE PENDING My Orders Orders - NICKO MONROY Cbc With Automated Diff (11/22/21 09:38) Comprehensive Metabolic Panel (11/22/21 09:38) Blood Culture (11/22/21 09:38) Sputum Culture (11/22/21 09:38) Urinalysis (11/22/21 09:38) Urine Culture (11/22/21 09:38) Protime With Inr (11/22/21:38) Partial Thromboplastin Time (11/22/21 09:38) Chest 1 View, Ap/Pa Only (11/22/21 09:38) Ed Iv/Invasive Line Start (11/22/21 09:38) Ed Iv/Invasive Line Start (11/22/21 09:38) Ekg Tracing (11/22/21 09:38) Troponin I Sandy (11/22/21 09:38) Vital Signs Adult Sepsis Patie Q15M (11/22/21 09:38) O2 (11/22/21 09:38) Remove Rings In Anticipation O (11/22/21 09:38) Lactic Acid Analyzer (11/22/21 09:38) Influenza A And B By Pcr (11/22/21 09:38) Ns Iv 1000 Ml (Sodium Chloride 0.9%) (11/22/21 09:45) Ceftriaxone 1 Gm Pre-Mix (Rocephin 1 Gm (11/22/21 09:45) Metronidazole 500mg/100ml Ivpb (Flagyl 5 (11/22/21 09:45) Covid 19 Inhouse Test (11/22/21 09:38) Ed Iv/Invasive Line Start (11/22/21 09:38) Ns Iv 1000 Ml (Sodium Chloride 0.9%) (11/22/21 09:45) Monotest (11/22/21 09:38) Lipase (11/22/21 09:38) Lidocaine 2% Viscous 15 Ml (Xylocaine Vi (11/22/21 09:45) Antacid Suspension (Mylanta Suspension (11/22/21 09:45) Pantoprazole Injection (Protonix Injecti (11/22/21 09:45) Fentanyl Inj (Sublimaze Injection) (11/22/21 09:45) Ketorolac Injection (Toradol Injection) (11/22/21 10:00) Ketorolac Injection (Toradol Injection) (11/22/21 09:53) Manual Differential (11/22/21 09:30) Ct Chest/Abdomen/Pelvis W (11/22/21 09:38) Iohexol Injection (Omnipaque 350 Mg/Ml 1 (11/22/21 10:45) Received Contrast (Hold Metformin- Contr (11/22/21 10:45) Ns (Ivpb) (Sodium Chloride 0.9% Ivpb Bag (11/22/21 10:45) Medications Given in ED Current Medications Medications Dose Ordered Sig/Shayla Route Start Time Stop Time Status Last Admin Dose Admin Ceftriaxone Sodium/Dextrose 50 ml @ 100 mls/hr ONCE ONCE IV 11/22/21 09:45 11/22/21 10:14 DC 11/22/21 10:26 100 MLS/HR Fentanyl Citrate 25 mcg ONCE ONCE IVP 11/22/21 09:45 11/22/21 09:46 DC 11/22/21 09:54 25 MCG Iohexol 100 ml ONCE ONCE IV 11/22/21 10:45 11/22/21 10:46 DC 11/22/21 11:18 100 ML Ketorolac Tromethamine 15 mg ONCE ONCE IVP 11/22/21 10:00 11/22/21 10:01 DC 11/22/21 09:55 15 MG Metronidazole 100 ml @ 100 mls/hr ONCE ONCE IV 11/22/21 09:45 11/22/21 10:44 DC 11/22/21 11:13 100 MLS/HR Pantoprazole 40 mg ONCE ONCE IV 11/22/21 09:45 11/22/21 09:46 DC 11/22/21 09:54 40 MG Sodium Chloride 100 ml ONCE ONCE IV 11/22/21 10:45 11/22/21 10:46 DC 11/22/21 11:18 80 ML Vital Signs/I&O 11/22/21 09:30 Temp 38.8 Pulse 141 Resp 20 B/P (MAP) 119/71 (87) Pulse Ox 95 Blood Pressure Mean: 87 Progress Progress Note #1: Time: 09:50 Progress Note Patient appears to be in a sinus tachycardia 130s 140s after walking in. He is not hypoxic nor is he having any increased work of breathing but he has a fever of 101.8 so we will give him some Toradol to treat his fever and pain. He is not having any significant pain right now. Pantoprazole to treat acid production in case he is having PUD or gastritis. Will consider a GI cocktail if his CT is negative. Mononucleosis antibodies. EKG to evaluate his tachycardia. 2 L of fluid to start would be greater than 20 mL/kg, Rocephin and Flagyl. He appears quite comfortable. Septic work-up was initiated. 1020: Added CT of the chest with IV contrast to evaluate for the nodular opacity seen in the right lower lung field. Progress Note #2: Time: 12:01 Progress Note After pantoprazole the patient is asymptomatic. Made consult with oncology, Dr. Roberto. Suspect that he is having gastritis. As he is asymptomatic she is happy to follow-up with him on Tuesday. Alternatively he can follow-up with [facility] for primary care. We will provide him with numbers and follow-up to both. No appreciable bleeding on exam today. Fever from unclear source but patient appears aseptic and does not require hospitalization. He is not interested in hospitalization. He states he will follow-up tomorrow. He also states he has a follow-up appointment next week with the clinic on [place]. Initial ECG Impression Date: Nov 22, 2021 Initial ECG Impression Time: 09:49 Initial ECG Rate: 126 Initial ECG Rhythm: S.Tach Initial ECG Intervals: Normal Initial ECG Impression: Normal Initial ECG Comparisson: No Previous ECG Available Comment Sinus tachycardia without clinically relevant ST changes. Diagnostic Imaging Diagonstic Imaging: Xray Plain Films/CT/US/NM/MRI: chest [facility] [place] [place] [facility] [id number] PT STATUS: REG ER : 1970 PHYSICIAN: NICKO MONROY MD ADMIT DATE: 11/22/21/ER Draft Date of Exam:11/22/21 CHEST 1 VIEW, AP/PA ONLY EXAMINATION: Chest 1 view HISTORY: Sepsis COMPARISON: 04/02/2020 FINDINGS: There is a 2.1 cm nodular opacity projecting over the right lung base. No pleural effusion or pneumothorax. Heart size is normal. IMPRESSION: 1. Nodular opacity projecting over the right lung base. Chest CT recommended for further evaluation. Dictated on workstation # [id number] Dict: 11/22/21 0957 Trans: 11/22/21 1001 [facility] [id number] Interpreted by: JERMAINE PRADHAN MD Electronically signed by: Reviewed: Reviewed by Me Diagonstic Imaging: CT (With IV and oral contrast) Plain Films/CT/US/NM/MRI: abdomen, pelvis Comments [facility] [place] NAME[facility] REC[facility] [id number] PT STATUS: REG ER : 1970 PHYSICIAN: NICKO MONROY MD ADMIT DATE: 11/22/21/ER Draft Date of Exam:11/22/21 CT CHEST/ABDOMEN/PELVIS W EXAMINATION: CT chest, abdomen and pelvis with intravenous contrast. TECHNIQUE: Multiple contiguous axial images were obtained through the chest, abdomen and pelvis after the uneventful administration of intravenous contrast. All CT scans use one or more of the following dose optimizing techniques: automated exposure control, MA and/or KvP adjustment based on patient size and exam type or iterative reconstruction. HISTORY: Epigastric pain COMPARISON: 06/12/2021 FINDINGS: There is no edema or pneumonia. No pleural effusion. No pneumothorax. No suspicious nodules. There is no axillary or supraclavicular lymphadenopathy. There is no mediastinal lymphadenopathy. Heart size is normal. There are no coronary artery calcifications. No pericardial effusion. Aorta is normal in caliber. The liver is normal without focal lesion. There is no biliary ductal dilation. Gallbladder is normal. Pancreas is normal. Spleen is normal. Adrenal glands are normal. The kidneys are normal. There is no hydronephrosis. Urinary bladder is normal. Bowel is normal in caliber without obstruction or inflammation. No free fluid or air. No abdominal or pelvic lymphadenopathy. Aorta is normal in caliber without aneurysm. There are no suspicious osseus lesions. IMPRESSION: 1. No acute abnormality in the abdomen or pelvis. Dictated on workstation # [id number] Dict: 11/22/21 1044 Trans: 11/22/21 1051 [facility] [id number] Interpreted by: JERMAINE PRADHAN MD Electronically signed by: Reviewed: Reviewed by Me Departure Impression Primary Impression: Gastritis Qualified Codes: K29.00 - Acute gastritis without bleeding Additional Impression: Leukemia Qualified Codes: C95.90 - Leukemia, unspecified not having achieved remission Disposition: HOME, SELF-CARE Condition: Stable Departure-Patient Inst. Decision time for Depature: 12:16 Referrals: NO,LOCAL PHYSICIAN (PCP) Primary Care Physician ANATOLIY ROBERTO MD Patient Instructions: Gastritis (DC), Leukemia in Adults Add. Discharge Instructions: Keep your follow-up appointment with the clinic on [place]. Go to [facility] and cotton picker the prescription for pantoprazole. Pantoprazole 40 mg daily for the next 30 days to reduce stomach acid. If you have repeat pain use Tums, Rolaids, Maalox, Mylanta etc. If you have fever use Tylenol 650 mg every 6 hours. If you have intractable pain, nausea or other worrisome symptoms then return to the ER. Call Dr. Grover Roberto, oncology in the morning and ask for follow-up appointment this week per her instructions. All discharge instructions reviewed with patient and/or family. Voiced understanding. Scripts Pantoprazole Sodium (Pantoprazole Sodium) 40 Mg Tablet. 40 MG PO DAILY for 30 Days, #30 TAB 0 Refills Prov: NICKO MONROY 11/22/21 Work/School Note: Work Release Form Date Seen in the Emergency Department: Nov 22, 2021 Return to Work: Nov 24, 2021 Restrictions: No Restrictions Copy Copies To 1: CINDY ALVES DO; ANATOLIY ROBERTO MD, TITUS J Nov 22, 2021 09:52
[2021-11-22 09:53] LABS: BASOPHILS % (AUTO) 0 % (0-10); HEMATOCRIT 36 % (40-54); LYMPHOCYTES # (AUTO) 4.3 10^3/uL (1.0-4.0); LYMPHOCYTES % (AUTO) 28 % (12-44); MEAN CORPUSCULAR HEMOGLOBIN 29 pg (25-34); MEAN CORPUSCULAR HGB CONC 33 g/dL (32-36); MEAN CORPUSCULAR VOLUME 87 fL (80-99); MONOCYTES % (AUTO) 26 % (0-12); NEUTROPHILS # (AUTO) 4.7 10^3/uL (1.8-7.8); NEUTROPHILS % (AUTO) 30 % (42-75); WHITE BLOOD COUNT 15.5 10^3/uL (4.3-11.0)
[2021-11-22] MEDS ORDERED: KETOROLAC 30 MG/ML VIAL ONE (09:53)
[2021-11-22 09:57] LABS: ALBUMIN 3.7 GM/DL (3.2-4.5); INR 1.2 (0.8-1.4); POTASSIUM 4.2 MMOL/L (3.6-5.0); PROTHROMBIN TIME PATIENT 15.2 SEC (12.2-14.7)
[2021-11-22 09:58] LABS: CALCIUM 8.6 MG/DL (8.5-10.1)
[2021-11-22 09:59] LABS: TOTAL PROTEIN 7.2 GM/DL (6.4-8.2)
[2021-11-22] MEDS ORDERED: KETOROLAC 30 MG/ML VIAL IVP ONE (10:00)
--- NOTE | 2021-11-22 10:01 | Diagnostic Imaging Report ---
EXAMINATION: Chest 1 view HISTORY: Sepsis COMPARISON: 04/02/2020 FINDINGS: There is a 2.1 cm nodular opacity projecting over the right lung base. No pleural effusion or pneumothorax. Heart size is normal. IMPRESSION: 1. Nodular opacity projecting over the right lung base. Chest CT recommended for further evaluation. Dictated by: Dictated on workstation # [id number]
[2021-11-22 10:03] LABS: CREATININE SERUM 0.94 MG/DL (0.60-1.30)
[2021-11-22 10:13] LABS: PLATELET COUNT 6 10^3/uL (130-400)
[2021-11-22 10:14] LABS: BAND NEUTROPHILS 6 %; LYMPHOCYTES % (MANUAL) 27 %; MONOCYTES % (MANUAL) 36 %; NEUTROPHILS % (MANUAL) 28 %
[2021-11-22 10:15] LABS: ANISOCYTOSIS MODERATE; ATYPICAL LYMPHOCYTES 3 %; HYPOCHROMASIA SLIGHT; MICROCYTOSIS SLIGHT; NUCLEATED RED BLOOD CELLS 5; PLATELET CLUMPS NONE OBSERVED; PLATELET ESTIMATE DECREASED; POIKILOCYTOSIS SLIGHT; POLYCHROMASIA MODERATE; SPHEROCYTES SLIGHT
[2021-11-22 10:16] LABS: TOXIC GRANULATION/VACUOLAZATIO 1+
[2021-11-22] MEDS ORDERED: NS 100 ML (IVPB) BAG IV ONE (10:45)
[2021-11-22] MEDS ORDERED: IOHEXOL 350 MG/ML 100 ML (OMNIPAQUE 350) VIAL IV ONE (10:45)
[2021-11-22] MEDS ORDERED: HOLD METFORMIN - RECEIVED CONTRAST 20 ML VIAL IV SCH (10:45)
--- NOTE | 2021-11-22 10:53 | Diagnostic Imaging Report ---
EXAMINATION: CT chest, abdomen and pelvis with intravenous contrast. TECHNIQUE: Multiple contiguous axial images were obtained through the chest, abdomen and pelvis after the uneventful administration of intravenous contrast. All CT scans use one or more of the following dose optimizing techniques: automated exposure control, MA and/or KvP adjustment based on patient size and exam type or iterative reconstruction. HISTORY: Epigastric pain COMPARISON: 06/12/2021 FINDINGS: There is no edema or pneumonia. No pleural effusion. No pneumothorax. No suspicious nodules. There is no axillary or supraclavicular lymphadenopathy. There is no mediastinal lymphadenopathy. Heart size is normal. There are no coronary artery calcifications. No pericardial effusion. Aorta is normal in caliber. The liver is normal without focal lesion. There is no biliary ductal dilation. Gallbladder is normal. Pancreas is normal. Spleen is normal. Adrenal glands are normal. The kidneys are normal. There is no hydronephrosis. Urinary bladder is normal. Bowel is normal in caliber without obstruction or inflammation. No free fluid or air. No abdominal or pelvic lymphadenopathy. Aorta is normal in caliber without aneurysm. There are no suspicious osseus lesions. IMPRESSION: 1. No acute abnormality in the abdomen or pelvis. Dictated by: Dictated on workstation # [id number]
[2021-11-22 11:33] LABS: BILIRUBIN,URINE 1+ (NEGATIVE); CLARITY,URINE SL CLOUDY; COLOR,URINE DARK YELLOW; GLUCOSE, URINE (UA) NEGATIVE (NEGATIVE); KETONES,URINE NEGATIVE (NEGATIVE); LEUKOCYTE ESTERASE ,URINE NEGATIVE (NEGATIVE); NITRITE,URINE NEGATIVE (NEGATIVE); PH,URINE 6.5 (5-9); PROTEIN,URINE 1+ (NEGATIVE)
[2021-11-22 11:40] LABS: BACTERIA,URINE FEW /HPF; RBC,URINE 0-2 /HPF; SQUAMOUS EPITHELIAL CELL,UR RARE /HPF
[2021-11-22] MEDS ORDERED: PANT40TA52 PO (12:19)
[2021-11-22 12:27] VITALS: BP 101/74
== END 2021-11-22 12:27 | disposition home or self-care (01) ==
LOC: EDUNIT# 09:17 → ER 09:19
DX: C95.90 Leukemia, unspecified not having achieved remission (principal); K29.70 Gastritis, unspecified, without bleeding; K21.9 Gastro-esophageal reflux disease without esophagitis; Z20.822 Contact with and (suspected) exposure to COVID-19; Z79.899 Other long term (current) drug therapy
CPT/HCPCS: 36415; 71045; 71260; 74177; 80053; 81000; 83605; 83690; 84484; 85007; 85027; 85610; 85730; 86308; 87040; 87088; 87636; 93005

== ENCOUNTER 2021-11-25 13:40 | Outpatient (RCR) | payer OTHER ==
[~2021-11-25 13:40] MED LIST changes: +PANT40TA52 PO
[2021-11-30] MEDS ORDERED: CEFU500T63 PO (16:32)
[2021-11-30] MEDS ORDERED: ACYC400T21 PO (16:43)
== END 2021-11-30 | disposition home or self-care (01) ==
LOC: ONC 13:40
PROVIDERS: ATTEND Internal Medicine Hematology & Oncology
DX: D69.6 Thrombocytopenia, unspecified (principal); C95.90 Leukemia, unspecified not having achieved remission
CPT/HCPCS: 99214

== ENCOUNTER 2021-11-30 15:26 | Emergency (ER) | payer OTHER ==
[~2021-11-30] VITALS: Ht 67 cm; Wt 73.9 kg
--- NOTE | 2021-11-30 15:50 | ED GU-Female ---
General Chief Complaint: - Reproductive Stated Complaint: URINATING BLOOD TIMES 3 DAYS Nursing Triage Note: ARRIVED VIA AMB WITH COMPLAINTS OF PEEING BLOOD X3 DAYS. Source: patient Exam Limitations: no limitations History of Present Illness Date Seen by Provider: Nov 30, 2021 Time Seen by Provider: 15:48 Initial Comments To ER by family with reports of 3 days of painless hematuria. Not urinating any clots. Denies sensation of bladder fullness or flank pain. No history of this. No anticoagulant use his only medication is occasional Tylenol. 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 Timing/Duration: constant Severity/Quality: moderate Location: unknown Radiation: none Prior Genitourinary Problems: none Associated Symptoms: No dysuria, No urinary frequency Allergies and Home Medications Allergies Coded Allergies: No Known Drug Allergies (Unverified , 04/02/20) Patient Home Medication List Home Medication List Reviewed: Yes Acyclovir (Acyclovir) 400 Mg Tablet, 400 MG PO 5XD Prescribed by: BOYD MEIER on 11/30/21 1643 Amoxicillin (Amoxicillin) 875 Mg Tablet, Unknown Dose PO, (Reported) Entered as Reported by: ALETHEA BUSBY on 06/12/21713 Cefuroxime Axetil (Cefuroxime) 500 Mg Tablet, 500 MG PO BID Prescribed by: BOYD MEIER on 11/30/21 1632 Doxycycline Hyclate (Doxycycline Hyclate) 100 Mg Tablet, 100 MG PO BID Prescribed by: JYOTHI GOMEZ on 04/02/20 1202 Methylprednisolone (Methylprednisolone Dose Pack) 4 Mg Tab.ds.pk, 4 MG PO UD Prescribed by: JYOTHI GOMEZ on 04/02/20 1202 Omeprazole (Omeprazole) 40 Mg Capsule.dr, Unknown Dose PO, (Reported) Entered as Reported by: ALETHEA BUSBY on 06/12/2114 Pantoprazole Sodium (Pantoprazole Sodium) 40 Mg Tablet.dr, 40 MG PO DAILY Prescribed by: NICKO MONROY on 11/22/21 1219 [biaxin] , (Reported) Entered as Reported by: LAETHEA BUSBY on 06/12/21713 Review of Systems Review of Systems Constitutional: see HPI; No chills, No fever EENTM: see HPI Respiratory: no symptoms reported Cardiovascular: no symptoms reported Genitourinary: see HPI, hematuria Musculoskeletal: no symptoms reported Skin: no symptoms reported Psychiatric/Neurological: No Symptoms Reported Endocrine: No Symptoms Reported Past Quohnir-Vyzikb-Szhoog Hx Patient Social History Tobacco Use?: No Substance use?: No Alcohol Use?: No Immunizations Up To Date Tetanus Booster (TDap): Unknown First/Initial COVID19 Vaccinat: 06/06/21 Second COVID19 Vaccination Hung: 06/06/21 Third COVID19 Vaccination Date: 06/06/21 Seasonal Allergies Seasonal Allergies: No Past Medical History Surgery/Hospitalization HX: MULTIPLE ORTHOPEDIC SURGERIES RELATED TO AN ACCIDENT 07/2018--AT [facility]:-LEFT FOREARM FX/EXTERNAL AND INTERNAL FIXATION 07/27/2018-LEFT FOREARM /WRIST FLEXOR AND EXTENSOR COMPARTMENT FASCIOTOMY 07/24/18-SKIN GRAFT FROM LEFT THIGH TO LEFT FORARM-LEFT BRACHIAL ARTERY RECONSTRUCTION WITH BYPASS GRAFT FROM RIGHT GREATSAPHENOUS VEIN 07/24/18-LEFT ELBOW CONTRACTURE RELEASE 08/14/19-LEFT ULNAR NERVE TRANSPOSITION 08/14/19-LEFT HAND FX/ORIF 03/18/20-REMOVAL OF HARDWARE LEFT HAND 07/08/2020-LEFT HAND SENSORY NERVE TRANSFER 07/08/2020 Surgeries: Yes Orthopedic Respiratory: No Cardiac: No Neurological: No Genitourinary: No Gastrointestinal: Yes Gastroesophageal Reflux Musculoskeletal: Yes (EXTENISVE ORTHO SURGERIES LEFT ARM DUE TO TRAUMA WITH RHABDOMYOLYSIS) Endocrine: No HEENT: No Cancer: No Psychosocial: No Integumentary: No Blood Disorders: No Physical Exam Vital Signs Vital Signs - First Documented 11/30/21 15:35 Temp 35.8 Pulse 110 Resp 16 B/P (MAP) 125/82 (96) Pulse Ox 97 O2 Delivery Room Air Capillary Refill : Less Than 3 Seconds Height, Weight, BMI Height: '" Weight: lbs. oz. kg; 164.00 BMI Method: General Appearance: WD/WN, no apparent distress HEENT: PERRL/EOMI, normal ENT inspection, other (Also has some ulcerative lesions on an erythematous base on the tongue and buccal mucosa of the mouth surrounded by a bit of bruising. We will give him a Magic mouthwash mixture for symptom relief and oral acyclovir.) Cardiovascular: no murmur, tachycardia (Heart rate of 110. Blood pressure is fine at 122/82.) Respiratory: no respiratory distress, no accessory muscle use Gastrointestinal: normal bowel sounds, non tender, soft; No tenderness Back: No CVA tenderness (R), No CVA tenderness (L) Extremities: normal range of motion, non-tender Neurologic/Psychiatric: alert, normal mood/affect, oriented x 3 Skin: normal color, warm/dry Progress/Results/Core Measures Suspected Sepsis SIRS Temperature: Pulse: 110 Respiratory Rate: 16 Laboratory Tests 11/30/21 15:40: White Blood Count 20.8H Blood Pressure 125 /82 Mean: 96 Laboratory Tests 11/30/21 15:40: Creatinine 0.83, Platelet Count 4*L, Total Bilirubin 0.7 Results/Orders Lab Results Laboratory Tests Test 11/30/21 15:40 11/30/21 16:02 Range/Units White Blood Count 20.8 H 4.3-11.0 10^3/uL Red Blood Count 3.92 L 4.30-5.52 10^6/uL Hemoglobin 11.3 L 13.3-17.7 g/dL Hematocrit 36 L 40-54 % Mean Corpuscular Volume 91 80-99 fL Mean Corpuscular Hemoglobin 29 25-34 pg Mean Corpuscular Hemoglobin Concent 32 32-36 g/dL Red Cell Distribution Width 21.0 H 10.0-14.5 % Platelet Count 4 *L 130-400 10^3/uL Mean Platelet Volume 9.0-12.2 fL Immature Granulocyte % (Auto) 15 % Neutrophils (%) (Auto) 41 L 42-75 % Lymphocytes (%) (Auto) 24 12-44 % Monocytes (%) (Auto) 20 H 0-12 % Eosinophils (%) (Auto) 0 0-10 % Basophils (%) (Auto) 0 0-10 % Neutrophils # (Auto) 8.5 H 1.8-7.8 10^3/uL Lymphocytes # (Auto) 5.0 H 1.0-4.0 10^3/uL Monocytes # (Auto) 4.1 H 0.0-1.0 10^3/uL Eosinophils # (Auto) 0.0 0.0-0.3 10^3/uL Basophils # (Auto) 0.1 0.0-0.1 10^3/uL Immature Granulocyte # (Auto) 3.1 H 0.0-0.1 10^3/uL Percent Immature Platelet Fraction 7.9 H 0.0-7.6 % Sodium Level 136 135-145 MMOL/L Potassium Level 4.6 3.6-5.0 MMOL/L Chloride Level 104 98-107 MMOL/L Carbon Dioxide Level 21 21-32 MMOL/L Anion Gap 11 5-14 MMOL/L Blood Urea Nitrogen 11 7-18 MG/DL Creatinine 0.83 0.60-1.30 MG/DL Estimat Glomerular Filtration Rate 106 BUN/Creatinine Ratio 13 Glucose Level 104 70-105 MG/DL Calcium Level 8.9 8.5-10.1 MG/DL Corrected Calcium 8.8 8.5-10.1 MG/DL Total Bilirubin 0.7 0.1-1.0 MG/DL Aspartate Amino Transf (AST/SGOT) 32 5-34 U/L Alanine Aminotransferase (ALT/SGPT) 59 H 0-55 U/L Alkaline Phosphatase 108 40-136 U/L Total Protein 7.6 6.4-8.2 GM/DL Albumin 4.1 3.2-4.5 GM/DL Urine Color RED H Urine Clarity CLOUDY Urine pH 6.5 5-9 Urine Specific [place] 1.015 L 1.016-1.022 Urine Protein 3+ H NEGATIVE Urine Glucose (UA) TRACE H NEGATIVE Urine Ketones 1+ H NEGATIVE Urine Nitrite POSITIVE H NEGATIVE Urine Bilirubin NEGATIVE NEGATIVE Urine Urobilinogen 4.0 < = 1.0 MG/DL Urine Leukocyte Esterase 2+ H NEGATIVE Urine RBC (Auto) 3+ H NEGATIVE Urine RBC TNTC H /HPF Urine WBC 25-50 H /HPF Urine Crystals NONE /LPF Urine Bacteria LARGE H /HPF Urine Casts NONE /LPF Urine Mucus NEGATIVE /LPF Urine Culture Indicated YES My Orders Orders - BOYD MEIER APRN Cbc With Automated Diff (11/30/21 15:45) Comprehensive Metabolic Panel (11/30/21 15:45) Ua Culture If Indicated (11/30/21 15:45) Ed Iv/Invasive Line Start (11/30/21 15:45) Manual Differential (11/30/21 15:40) Platelet Pheresis Lr (11/30/21 16:08) Iohexol Injection (Omnipaque 350 Mg/Ml 1 (11/30/21 16:15) Received Contrast (Hold Metformin- Contr (11/30/21 16:15) Ns (Ivpb) (Sodium Chloride 0.9% Ivpb Bag (11/30/21 16:15) Type And Screen (11/30/21 16:22) Urine Culture (11/30/21 16:02) Ceftriaxone 1 Gm Pre-Mix (Rocephin 1 Gm (11/30/21 16:30) Antacid Suspension (Mylanta Suspension (11/30/21 16:45) Lidocaine 2% Viscous 15 Ml (Xylocaine Vi (11/30/21 16:45) Acyclovir Capsule/Tablet (Zovirax Caps (11/30/21 16:45) Antacid Suspension (Mylanta Suspension (11/30/21 16:45) Lidocaine 2% Viscous 15 Ml (Xylocaine Vi (11/30/21 16:45) Medications Given in ED Current Medications Medications Dose Ordered Sig/Shayla Route Start Time Stop Time Status Last Admin Dose Admin Al Hydrox/Mg Hydrox/Simethicone 30 ml ONCE ONCE PO 11/30/21 16:45 11/30/21 16:46 DC 11/30/21 16:57 30 ML Ceftriaxone Sodium/Dextrose 50 ml @ 100 mls/hr ONCE ONCE IV 11/30/21 16:30 11/30/21 16:59 DC 11/30/21 16:38 100 MLS/HR Lidocaine HCl 15 ml ONCE ONCE PO 11/30/21 16:45 11/30/21 16:46 DC 11/30/21 16:57 15 ML Sodium Chloride 100 ml ONCE ONCE IV 11/30/21 16:15 11/30/21 16:16 DC 11/30/21 17:52 100 ML Vital Signs/I&O 11/30/21 15:35 Temp 35.8 Pulse 110 Resp 16 B/P (MAP) 125/82 (96) Pulse Ox 97 O2 Delivery Room Air Capillary Refill : Less Than 3 Seconds Blood Pressure Mean: 96 Departure Communication (Admissions) Per [facility] records on 10/09/2021 they discussed with him the bone marrow biopsy results showing concern for 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 They recommended home on hospice DO NOT RESUSCITATE status. Referral was sent to [facility] in [place]. I then spoke with [facility] and they report that they enrolled him in hospice on 10/14/2021 and discontinued care with him on 11/17/2021 as he would not allow visits at his house. 1623-I spoke with the patient using the tractor crane engineer line. He states that [facility] stop the treatments for his AML when they found out he did not have insurance. He believes that they just did not want to treat him because he has no insurance. I discussed with him that according to their note they did not do further treatment because it would have unpleasant side effects without prolonging his life expectancy. Either way he is scheduled to see Dr. Pan from oncology here on Tuesday. He is not in the office today but I spoke with the office nurse and they are going to talk about potential irais atment options (Dacogen ?) during this visit on Tuesday. While here we will give a bag of platelets which should resolve his hematuria and then discharge home to keep this outpatient appointment. Impression Primary Impression: Thrombocytopenia Additional Impressions: Leukemia Qualified Codes: C92.92 - Myeloid leukemia, unspecified in relapse Hematuria Qualified Codes: R31.0 - Gross hematuria Urinary tract infection Qualified Codes: N30.01 - Acute cystitis with hematuria Stomatitis and mucositis Disposition: HOME, SELF-CARE Condition: Stable Departure-Patient Inst. Decision time for Depature: 16:30 Referrals: NO,LOCAL PHYSICIAN (PCP/Family) Primary Care Physician Patient Instructions: Leukemia in Adults, Bleeding Precautions, Urinary Tract I nfection, Adult (DC) Scripts Acyclovir (Acyclovir) 400 Mg Tablet 400 MG PO 5XD, #28 TAB Prov: BOYD MEIER RISK ADVISOR 11/30/21 Cefuroxime Axetil (Cefuroxime) 500 Mg Tablet 500 MG PO BID, #14 TAB Prov: BOYD MEIER RISK ADVISOR 11/30/21 BOYD MEIER APRN Nov 30, 2021 15:50
[2021-11-30 15:58] LABS: ALBUMIN 4.1 GM/DL (3.2-4.5)
[2021-11-30 15:59] LABS: POTASSIUM 4.6 MMOL/L (3.6-5.0)
[2021-11-30 16:00] LABS: CALCIUM 8.9 MG/DL (8.5-10.1)
[2021-11-30 16:01] LABS: HEMATOCRIT 36 % (40-54); TOTAL PROTEIN 7.6 GM/DL (6.4-8.2)
[2021-11-30 16:03] LABS: BASOPHILS # (AUTO) 0.1 10^3/uL (0.0-0.1); BASOPHILS % (AUTO) 0 % (0-10); BILIRUBIN,TOTAL 0.7 MG/DL (0.1-1.0); EOSINOPHILS % (AUTO) 0 % (0-10); HEMOGLOBIN 11.3 g/dL (13.3-17.7); LYMPHOCYTES % (AUTO) 24 % (12-44); MEAN CORPUSCULAR HEMOGLOBIN 29 pg (25-34); MEAN CORPUSCULAR HGB CONC 32 g/dL (32-36); MEAN CORPUSCULAR VOLUME 91 fL (80-99); MONOCYTES # (AUTO) 4.1 10^3/uL (0.0-1.0); MONOCYTES % (AUTO) 20 % (0-12); NEUTROPHILS # (AUTO) 8.5 10^3/uL (1.8-7.8); NEUTROPHILS % (AUTO) 41 % (42-75); WHITE BLOOD COUNT 20.8 10^3/uL (4.3-11.0)
[2021-11-30 16:05] LABS: CREATININE SERUM 0.83 MG/DL (0.60-1.30)
[2021-11-30 16:07] LABS: PLATELET COUNT 4 10^3/uL (130-400)
[2021-11-30 16:08] LABS: BILIRUBIN,URINE NEGATIVE (NEGATIVE); CLARITY,URINE CLOUDY; COLOR,URINE RED; GLUCOSE, URINE (UA) TRACE (NEGATIVE); KETONES,URINE 1+ (NEGATIVE); LEUKOCYTE ESTERASE ,URINE 2+ (NEGATIVE); NITRITE,URINE POSITIVE (NEGATIVE); PH,URINE 6.5 (5-9); PROTEIN,URINE 3+ (NEGATIVE)
[2021-11-30] MEDS ORDERED: HOLD METFORMIN - RECEIVED CONTRAST 20 ML VIAL IV SCH (16:15)
[2021-11-30] MEDS ORDERED: NS 100 ML (IVPB) BAG IV ONE (16:15)
[2021-11-30] MEDS ORDERED: IOHEXOL 350 MG/ML 100 ML (OMNIPAQUE 350) VIAL IV ONE (16:15)
[2021-11-30 16:26] LABS: BACTERIA,URINE LARGE /HPF; RBC,URINE TNTC /HPF; WBC,URINE 25-50 /HPF
[2021-11-30] MEDS ORDERED: cefTRIAXone 1 GM PRE-MIX 50 ML IV ONE (16:30)
[2021-11-30] MEDS ORDERED: CEFU500T63 PO (16:32)
[2021-11-30] MEDS ORDERED: ACYC400T21 PO (16:43)
[2021-11-30] MEDS ORDERED: LIDOCAINE 2% VISCOUS 15 ML UDC PO ONE ×2 (16:45)
[2021-11-30] MEDS ORDERED: ACYCLOVIR 400 MG TABLET (ZOVIRAX) PO SCH (16:45)
[2021-11-30] MEDS ORDERED: ANTACID SUSP 30 ML UDC (MYLANTA) PO ONE ×2 (16:45)
[2021-11-30 18:47] VITALS: BP 124/80
[2021-11-30 19:40] LABS: ATYPICAL LYMPHOCYTES 14 %; LYMPHOCYTES % (MANUAL) 27 %; MONOCYTES % (MANUAL) 19 %; NEUTROPHILS % (MANUAL) 40 %; REACTIVE LYMPHOCYTES 14 %
[2021-11-30 19:41] LABS: POIKILOCYTOSIS SLIGHT
== END 2021-11-30 18:47 | disposition home or self-care (01) ==
LOC: EDUNIT# 15:26 → ER 15:33
DX: D69.6 Thrombocytopenia, unspecified (principal); C95.90 Leukemia, unspecified not having achieved remission; R31.9 Hematuria, unspecified; N39.0 Urinary tract infection, site not specified; K12.1 Other forms of stomatitis; K12.30 Oral mucositis (ulcerative), unspecified
CPT/HCPCS: 80053; 81000; 85007; 85027; 86850; 86900; 86901; 87088; 96374; 99284; P9035; 36415

== ENCOUNTER 2021-12-02 08:43 | Outpatient (RCR) | payer OTHER ==
[~2021-12-02 08:43] MED LIST changes: +ACYC400T21 PO; +CEFU500T63 PO
[2021-12-02 08:51] LABS: BASOPHILS % (AUTO) 1 % (0-10); EOSINOPHILS % (AUTO) 0 % (0-10); HEMOGLOBIN 10.6 g/dL (13.3-17.7); MEAN CORPUSCULAR VOLUME 91 fL (80-99)
[2021-12-02 08:53] LABS: BASOPHILS # (AUTO) 0.2 10^3/uL (0.0-0.1); HEMATOCRIT 35 % (40-54); LYMPHOCYTES # (AUTO) 4.6 10^3/uL (1.0-4.0); LYMPHOCYTES % (AUTO) 20 % (12-44); MEAN CORPUSCULAR HEMOGLOBIN 28 pg (25-34); MEAN CORPUSCULAR HGB CONC 31 g/dL (32-36); MONOCYTES # (AUTO) 7.5 10^3/uL (0.0-1.0); MONOCYTES % (AUTO) 33 % (0-12); NEUTROPHILS # (AUTO) 7.6 10^3/uL (1.8-7.8); NEUTROPHILS % (AUTO) 33 % (42-75); WHITE BLOOD COUNT 22.8 10^3/uL (4.3-11.0)
[2021-12-02 08:56] LABS: PLATELET COUNT 4 10^3/uL (130-400)
[2021-12-09] MEDS ORDERED: ACET-2267 PO (11:00)
[2021-12-09] MEDS ORDERED: IBUP-2473 PO (11:01)
== END 2021-12-15 | disposition home or self-care (01) ==
LOC: ONC 08:43
PROVIDERS: ATTEND Internal Medicine Hematology & Oncology
DX: Z45.2 Encounter for adjustment and management of vascular access device (principal); C92.00 Acute myeloblastic leukemia, not having achieved remission
CPT/HCPCS: 85025; G0463; 36415; 99213

== ENCOUNTER 2021-12-06 15:18 | Inpatient (IN) | payer OTHER ==
[~2021-12-06] VITALS: Ht 167 cm; Wt 79.8 kg
[2021-12-06 15:54] LABS: HEMOGLOBIN 8.5 g/dL (13.3-17.7)
[2021-12-06 15:56] LABS: BASOPHILS # (AUTO) 0.1 10^3/uL (0.0-0.1); BASOPHILS % (AUTO) 1 % (0-10); EOSINOPHILS % (AUTO) 0 % (0-10); HEMATOCRIT 27 % (40-54); LYMPHOCYTES # (AUTO) 3.9 10^3/uL (1.0-4.0); LYMPHOCYTES % (AUTO) 15 % (12-44); MEAN CORPUSCULAR HEMOGLOBIN 28 pg (25-34); MEAN CORPUSCULAR HGB CONC 32 g/dL (32-36); MEAN CORPUSCULAR VOLUME 87 fL (80-99); MONOCYTES # (AUTO) 8.1 10^3/uL (0.0-1.0); MONOCYTES % (AUTO) 31 % (0-12); NEUTROPHILS # (AUTO) 11.1 10^3/uL (1.8-7.8); NEUTROPHILS % (AUTO) 43 % (42-75)
[2021-12-06 15:58] LABS: PLATELET COUNT 4 10^3/uL (130-400)
[2021-12-06] MEDS ORDERED: ONDANSETRON 4 MG/2 ML (SDV) Z0FRAN IVP ONE (16:00)
[2021-12-06] MEDS ORDERED: HYOSCYAMINE 0.125 MG (LEVSIN) TAB SL ONE (16:00)
[2021-12-06] MEDS ORDERED: NS IV 500 ML 500 ML IV ONE (16:00)
[2021-12-06 16:03] LABS: ALBUMIN 3.7 GM/DL (3.2-4.5); POTASSIUM 4.2 MMOL/L (3.6-5.0)
[2021-12-06 16:04] LABS: CALCIUM 8.6 MG/DL (8.5-10.1)
[2021-12-06 16:05] LABS: TOTAL PROTEIN 6.6 GM/DL (6.4-8.2)
[2021-12-06 16:07] LABS: BILIRUBIN,TOTAL 1.4 MG/DL (0.1-1.0)
[2021-12-06 16:09] LABS: CREATININE SERUM 1.54 MG/DL (0.60-1.30)
[2021-12-06 16:12] LABS: MAGNESIUM 1.6 MG/DL (1.6-2.4)
[2021-12-06] MEDS ORDERED: IOHEXOL 350 MG/ML 100 ML (OMNIPAQUE 350) VIAL IV ONE (16:15)
[2021-12-06] MEDS ORDERED: HOLD METFORMIN - RECEIVED CONTRAST 20 ML VIAL IV SCH (16:15)
[2021-12-06] MEDS ORDERED: NS 100 ML (IVPB) BAG IV ONE (16:15)
[2021-12-06 16:33] LABS: HYPOCHROMASIA MODERATE; LYMPHOCYTES % (MANUAL) 17 %; MONOCYTES % (MANUAL) 40 %; NEUTROPHILS % (MANUAL) 43 %; NUCLEATED RED BLOOD CELLS 8; POLYCHROMASIA SLIGHT; TARGET CELLS SLIGHT
[2021-12-06 16:50] LABS: BILIRUBIN,URINE NEGATIVE (NEGATIVE); GLUCOSE, URINE (UA) TRACE (NEGATIVE); KETONES,URINE 1+ (NEGATIVE); LEUKOCYTE ESTERASE ,URINE 2+ (NEGATIVE); NITRITE,URINE POSITIVE (NEGATIVE); PH,URINE 6.5 (5-9); PROTEIN,URINE 3+ (NEGATIVE)
[2021-12-06 16:52] LABS: BACTERIA,URINE FEW /HPF; CLARITY,URINE BLOODY; COLOR,URINE RED; RBC,URINE TNTC /HPF
--- NOTE | 2021-12-06 17:05 | Diagnostic Imaging Report ---
PROCEDURE: CT abdomen and pelvis with contrast. TECHNIQUE: Multiple contiguous axial images were obtained through the abdomen and pelvis after administration of intravenous contrast. Auto Exposure Controls were utilized during the CT exam to meet ALARA standards for radiation dose reduction. All CT scans use one or more of the following dose optimizing techniques: automated exposure control, MA and/or KvP adjustment based on patient size and exam type or iterative reconstruction. INDICATION: Generalized abdominal pain, weakness, nausea and vomiting. COMPARISON: 11/22/2021. FINDINGS: The lung bases are clear. The gallbladder, solid organs, vascular structures and small bowel are normal. There is some slight inflammatory change involving the cecum possibly a focal colitis. There is no free air, free fluid or bowel obstruction. The small bowel is normal. The appendix is grossly unremarkable. Urinary bladder and prostate are normal. There is no hernia. No lymphadenopathy. IMPRESSION: 1. Slight inflammatory change involving the cecum, possibly colitis. Please correlate with point tenderness. 2. No free air, free fluid or bowel obstruction. Dictated by: Dictated on workstation # [id number]
[2021-12-06] MEDS ORDERED: fentaNYL INJ 100 MCG/2 ML AMP ONE (17:36)
[2021-12-06] MEDS ORDERED: PIPERACILLIN SODIUM/TAZOBACTAM 4.5 GM in NS (IVPB) 100 ML IV ONE (18:00)
[2021-12-06 18:14] LABS: INR 1.3 (0.8-1.4); PROTHROMBIN TIME PATIENT 16.2 SEC (12.2-14.7)
--- NOTE | 2021-12-06 18:16 | ED Abdominal Pain ---
General Chief Complaint: Abdominal/GI Problems Stated Complaint: ABD PAIN/VOMITING/DIARRHEA Nursing Triage Note: PT AMB TO RM 8, LANGUAGE LINE CONTACTED FOR TRIAGE. PT C/O UPPER ABD PAIN, N/V/D, FATIGUE, AND WEAKNESS. A&OX4. Source of Information: Patient, Family, Old Records Exam Limitations: Language Barrier History of Present Illness Date Seen by Provider: Dec 06, 2021 Time Seen by Provider: 15:50 Initial Comments This 51-year-old gentleman presents to the emergency room with complaints of nausea, vomiting, and diarrhea as well as generalized abdominal pain that started earlier today. He has history of AML for which she has been treated at [facility]. According to documents received from [facility], his recommended treatment course was palliative care. Further aggressive treatment with chemotherapy was thought create more risk than benefit. Patient was seen here in the emergency room November 30 and he received a unit of platelets for his severe thrombocytopenia. Patient reports hematuria but no other active bleeding at this time. Apparently follow-up was arranged with the [facility]. There is record of outpatient laboratory work being obtained. It is unclear to me if he saw an oncologist at an appointment as he states he does not have a local doctor. History was obtained from the patient via the language line automotive parts interpreter and from prior documentation. During the course of our conversations, patient states he has plans to fly to [facility] on December 08. He states he has an airline ticket and his daughters have made arrangements. He plans to seek oncology care in [facility] at that time. According to documentation, patient had been offered hospice services. However, those services were terminated as he would not allow hospice workers into the home. Allergies and Home Medications Allergies Coded Allergies: No Known Drug Allergies (Unverified , 04/02/20) Patient Home Medication List Home Medication List Reviewed: Yes Acyclovir (Acyclovir) 400 Mg Tablet, 400 MG PO 5XD Prescribed by: BOYD MEIER on 11/30/21 1643 Amoxicillin (Amoxicillin) 875 Mg Tablet, Unknown Dose PO, (Reported) Entered as Reported by: ALETHEA BUSBY on 06/12/21 0714 Cefuroxime Axetil (Cefuroxime) 500 Mg Tablet, 500 MG PO BID Prescribed by: BOYD MEIER on 11/30/21 1632 Doxycycline Hyclate (Doxycycline Hyclate) 100 Mg Tablet, 100 MG PO BID Prescribed by: JYOTHI GOMEZ on 04/02/20 1202 Methylprednisolone (Methylprednisolone Dose Pack) 4 Mg Tab.ds.pk, 4 MG PO UD Prescribed by: JYOTHI GOMEZ on 04/02/20 1202 Omeprazole (Omeprazole) 40 Mg Capsule.dr, Unknown Dose PO, (Reported) Entered as Reported by: ALETHEA BUSBY on 06/12/21 0714 Pantoprazole Sodium (Pantoprazole Sodium) 40 Mg Tablet.dr, 40 MG PO DAILY Prescribed by: NICKO MONROY on 11/22/21 1219 [biaxin] , (Reported) Entered as Reported by: ALETHEA BUSBY on 06/12/21 0714 Review of Systems Review of Systems Constitutional: no symptoms reported EENTM: No Symptoms Reported Respiratory: No Symptoms Reported Cardiovascular: No Symptoms Reported Gastrointestinal: See HPI Genitourinary: See HPI Musculoskeletal: no symptoms reported Skin: no symptoms reported Psychiatric/Neurological: No Symptoms Reported Endocrine: No Symptoms Reported Hematologic/Lymphatic: See HPI Past Loazvqf-Gxzjkg-Roytyi Hx Patient Social History Tobacco Use?: No Use of E-Cig and/or Vaping dev: No Substance use?: No Alcohol Use?: No Immunizations Up To Date Tetanus Booster (TDap): Unknown Influenza Vaccine Up-to-Date: No; Not Current First/Initial COVID19 Vaccinat: 06/06/21 Second COVID19 Vaccination Hung: N/A Third COVID19 Vaccination Date: N/A COVID19 Vaccine Career Counselor: MORIAH Seasonal Allergies Seasonal Allergies: No Past Medical History Surgery/Hospitalization HX: MULTIPLE ORTHOPEDIC SURGERIES RELATED TO AN ACCIDENT 07/2018--AT [facility]:-LEFT FOREARM FX/EXTERNAL AND INTERNAL FIXATION 07/27/2018-LEFT FOREARM /WRIST FLEXOR AND EXTENSOR COMPARTMENT FASCIOTOMY 07/24/18-SKIN GRAFT FROM LEFT THIGH TO LEFT FORARM-LEFT BRACHIAL ARTERY RECONSTRUCTION WITH BYPASS GRAFT FROM RIGHT GREATSAPHENOUS VEIN 07/24/18-LEFT ELBOW CONTRACTURE RELEASE 08/14/19-LEFT ULNAR NERVE TRANSPOSITION 08/14/19-LEFT HAND FX/ORIF 03/18/20-REMOVAL OF HARDWARE LEFT HAND 07/08/2020-LEFT HAND SENSORY NERVE TRANSFER 07/08/2020 Surgeries: Yes Orthopedic Respiratory: No Cardiac: No Neurological: No Genitourinary: No Gastrointestinal: Yes Gastroesophageal Reflux Musculoskeletal: Yes (EXTENISVE ORTHO SURGERIES LEFT ARM DUE TO TRAUMA WITH RHABDOMYOLYSIS) Endocrine: No HEENT: No Cancer: Yes Leukemia (AML) Psychosocial: No Integumentary: No Blood Disorders: Yes (AML with severe thrombocytopenia) Physical Exam Vital Signs Vital Signs - First Documented 12/06/21 15:25 Temp 36.9 Pulse 133 Resp 22 B/P (MAP) 102/64 (77) Pulse Ox 99 O2 Delivery Room Air Capillary Refill : Less Than 3 Seconds Height/Weight/BMI Height: '" Weight: lbs. oz. kg; 28.00 BMI Method: General Appearance: WD/WN, moderate distress HEENT: normal ENT inspection Neck: full range of motion Respiratory: lungs clear, normal breath sounds, no respiratory distress Cardiovascular: no edema, no murmur, tachycardia Gastrointestinal: normal bowel sounds, soft, tenderness (Generalized) Extremities: normal inspection, no pedal edema Neurologic/Psychiatric: no motor/sensory deficits, alert, normal mood/affect Skin: normal color, warm/dry Focused Exam Lactate Level 12/06/21 18:10: Lactic Acid Level 1.16 Lactic Acid Level Laboratory Tests Test 12/06/21 18:10 Lactic Acid Level 1.16 MMOL/L (0.50-2.00) Progress/Results/Core Measures Results/Orders Lab Results Laboratory Tests Test 12/06/21 15:48 12/06/21 16:40 12/06/21 18:10 Range/Units White Blood Count 26.0 H 4.3-11.0 10^3/uL Red Blood Count 3.08 L 4.30-5.52 10^6/uL Hemoglobin 8.5 L 13.3-17.7 g/dL Hematocrit 27 L 40-54 % Mean Corpuscular Volume 87 80-99 fL Mean Corpuscular Hemoglobin 28 25-34 pg Mean Corpuscular Hemoglobin Concent 32 32-36 g/dL Red Cell Distribution Width 21.1 H 10.0-14.5 % Platelet Count 4 *L 130-400 10^3/uL Mean Platelet Volume 9.0-12.2 fL Immature Granulocyte % (Auto) 11 % Neutrophils (%) (Auto) 43 42-75 % Lymphocytes (%) (Auto) 15 12-44 % Monocytes (%) (Auto) 31 H 0-12 % Eosinophils (%) (Auto) 0 0-10 % Basophils (%) (Auto) 1 0-10 % Neutrophils # (Auto) 11.1 H 1.8-7.8 10^3/uL Lymphocytes # (Auto) 3.9 1.0-4.0 10^3/uL Monocytes # (Auto) 8.1 H 0.0-1.0 10^3/uL Eosinophils # (Auto) 0.0 0.0-0.3 10^3/uL Basophils # (Auto) 0.1 0.0-0.1 10^3/uL Immature Granulocyte # (Auto) 2.8 H 0.0-0.1 10^3/uL Neutrophils % (Manual) 43 % Lymphocytes % (Manual) 17 % Monocytes % (Manual) 40 % Nucleated Red Blood Cells 8 Percent Immature Platelet Fraction 15.0 H 0.0-7.6 % Polychromasia SLIGHT Hypochromasia MODERATE Target Cells SLIGHT Prothrombin Time 16.2 H 12.2-14.7 SEC INR Comment 1.3 0.8-1.4 Activated Partial Thromboplast Time 46 H 24-35 SEC Sodium Level 135 135-145 MMOL/L Potassium Level 4.2 3.6-5.0 MMOL/L Chloride Level 101 98-107 MMOL/L Carbon Dioxide Level 19 L 21-32 MMOL/L Anion Gap 15 H 5-14 MMOL/L Blood Urea Nitrogen 18 7-18 MG/DL Creatinine 1.54 H 0.60-1.30 MG/DL Estimat Glomerular Filtration Rate 54 BUN/Creatinine Ratio 12 Glucose Level 126 H 70-105 MG/DL Calcium Level 8.6 8.5-10.1 MG/DL Corrected Calcium 8.8 8.5-10.1 MG/DL Magnesium Level 1.6 1.6-2.4 MG/DL Total Bilirubin 1.4 H 0.1-1.0 MG/DL Aspartate Amino Transf (AST/SGOT) 66 H 5-34 U/L Alanine Aminotransferase (ALT/SGPT) 77 H 0-55 U/L Alkaline Phosphatase 166 H 40-136 U/L C-Reactive Protein High Sensitivity 17.95 H 0.00-0.50 MG/DL Total Protein 6.6 6.4-8.2 GM/DL Albumin 3.7 3.2-4.5 GM/DL Urine Color RED H Urine Clarity BLOODY H Urine pH 6.5 5-9 Urine Specific [place] 1.025 H 1.016-1.022 Urine Protein 3+ H NEGATIVE Urine Glucose (UA) TRACE H NEGATIVE Urine Ketones 1+ H NEGATIVE Urine Nitrite POSITIVE H NEGATIVE Urine Bilirubin NEGATIVE NEGATIVE Urine Urobilinogen 2.0 < = 1.0 MG/DL Urine Leukocyte Esterase 2+ H NEGATIVE Urine RBC (Auto) 3+ H NEGATIVE Urine RBC TNTC H /HPF Urine WBC 10-25 H /HPF Urine Crystals NONE /LPF Urine Bacteria FEW H /HPF Urine Casts NONE /LPF Urine Mucus NEGATIVE /LPF Urine Culture Indicated YES Lactic Acid Level 1.16 0.50-2.00 MMOL/L My Orders Orders - BARRY KINNEY MD Cbc With Automated Diff (12/06/21 15:50) Comprehensive Metabolic Panel (12/06/21 15:50) Hs C Reactive Protein (12/06/21 15:50) Magnesium (12/06/21 15:50) Ua Culture If Indicated (12/06/21 15:50) Hyoscyamine Sl Tablet (Levsin Sl Tablet) (12/06/21 16:00) Ondansetron Injection (Zofran Injectio (12/06/21 16:00) Ed Iv/Invasive Line Start (12/06/21 15:51) Ns Iv 500 Ml (Sodium Chloride 0.9%) (12/06/21 16:00) Ct Abdomen/Pelvis W (12/06/21 15:55) Manual Differential (12/06/21 15:48) Iohexol Injection (Omnipaque 350 Mg/Ml 1 (12/06/21 16:15) Received Contrast (Hold Metformin- Contr (12/06/21 16:15) Ns (Ivpb) (Sodium Chloride 0.9% Ivpb Bag (12/06/21 16:15) Urine Culture (12/06/21 16:40) Fentanyl Inj (Sublimaze Injection) (12/06/21 17:36) Blood Culture (12/06/21 18:00) Protime With Inr (12/06/21 18:00) Partial Thromboplastin Time (12/06/21 18:00) Vital Signs Adult Sepsis Patie Q15M (12/06/21 18:00) Remove Rings In Anticipation O (12/06/21 18:00) Lactic Acid Analyzer (12/06/21 18:00) Piperacillin Sodium/Tazobactam (Zosyn Vi (12/06/21 18:00) Platelet Pheresis Lr (12/06/21 18:17) Medications Given in ED Current Medications Medications Dose Ordered Sig/Shayla Route Start Time Stop Time Status Last Admin Dose Admin Fentanyl Citrate 100 mcg STK-MED ONCE .ROUTE 12/06/21 17:36 12/06/21 17:40 DC 12/06/21 18:09 50 MCG Hyoscyamine Sulfate 0.25 mg ONCE ONCE SL 12/06/21 16:00 12/06/21 16:01 DC 12/06/21 16:12 0.25 MG Iohexol 100 ml ONCE ONCE IV 12/06/21 16:15 12/06/21 16:16 DC 12/06/21 16:55 99 ML Ondansetron HCl 8 mg ONCE ONCE IVP 12/06/21 16:00 12/06/21 16:01 DC 12/06/21 16:13 8 MG Piperacillin Sod/ Tazobactam Sod 4.5 gm/Sodium Chloride 100 ml @ 200 mls/hr ONCE ONCE IV 12/06/21 18:00 12/06/21 18:29 DC 12/06/21 18:32 200 MLS/HR Sodium Chloride 100 ml ONCE ONCE IV 12/06/21 16:15 12/06/21 16:16 DC 12/06/21 16:55 80 ML Sodium Chloride 500 ml @ 0 mls/hr Q0M ONCE IV 12/06/21 16:00 12/06/21 16:01 DC 12/06/21 16:13 0 MLS/HR Vital Signs/I&O 12/06/21 15:25 Temp 36.9 Pulse 133 Resp 22 B/P (MAP) 102/64 (77) Pulse Ox 99 O2 Delivery Room Air Blood Pressure Mean: 77 Progress Progress Note : Progress Note After a long conversation with the patient using the language line, he elects a DNR status. We discussed risks and benefits of CPR and intubation. I also inquired about who he would like to make decisions for him if he were unable to do so himself. He requested that his brother Saúl Villa be his decision- maker, and he can be contacted at [phone]. His nephew, David Madden, has accompanied him throughout the ER visit. David can be contacted at [phone]. David does speak Emirati fairly well. Levsin was administered for the diarrhea and cramping. Zofran was given for nausea. CT was obtained to evaluate his abdominal pain patient was found to have colitis which is likely causing his abdominal pain. He was also found to again have platelets of 4000. We have ordered blood cultures, lactic acid, and Zosyn to address his colitis. Fentanyl was given for pain. A unit of platelets has also been ordered. Patient would like to be admitted to the hospital to hopefully improve his status and prepare him for travel to [facility]. He would appreciate the unit of platelets as well. I inquired about an oncology consult while in the hospital. He declined the consult and requested only to be treated for the colitis and thrombocytopenia. Diagnostic Imaging Diagonstic Imaging: CT Plain Films/CT/US/NM/MRI: abdomen, pelvis Comments CT abdomen and pelvis viewed by me and report reviewed. See report below: NAME: DAYAMI VILLAZOE [facility] REC#: [id number] PT STATUS: REG ER : 1970 PHYSICIAN: BARRY KINNEY MD ADMIT DATE: 12/06/21/ER Signed Date of Exam:12/06/21 CT ABDOMEN/PELVIS W PROCEDURE: CT abdomen and pelvis with contrast. TECHNIQUE: Multiple contiguous axial images were obtained through the abdomen and pelvis after administration of intravenous contrast. Auto Exposure Controls were utilized during the CT exam to meet ALARA standards for radiation dose reduction. All CT scans use one or more of the following dose optimizing techniques: automated exposure control, MA and/or KvP adjustment based on patient size and exam type or iterative reconstruction. INDICATION: Generalized abdominal pain, weakness, nausea and vomiting. COMPARISON: 11/22/2021. FINDINGS: The lung bases are clear. The gallbladder, solid organs, vascular structures and small bowel are normal. There is some slight inflammatory change involving the cecum possibly a focal colitis. There is no free air, free fluid or bowel obstruction. The small bowel is normal. The appendix is grossly unremarkable. Urinary bladder and prostate are normal. There is no hernia. No lymphadenopathy. IMPRESSION: 1. Slight inflammatory change involving the cecum, possibly colitis. Please correlate with point tenderness. 2. No free air, free fluid or bowel obstruction. Dictated by: Dictated on workstation # [id number] Dict: 12/06/21 1659 Trans: 12/06/21 170 [facility] [id number] Interpreted by: FRANCIA ONTIVEROS Electronically signed by: FRANCIA ONTIVEROS 12/06/216 Departure Communication (Admissions) Time/Spoke to Admitting Phy: 18:05 Dr. Deleon Impression Primary Impression: Colitis Additional Impressions: Nausea vomiting and diarrhea Generalized abdominal pain Thrombocytopenia AML (acute myeloblastic leukemia) Qualified Codes: C92.00 - Acute myeloblastic leukemia, not having achieved remission Disposition: ADMITTED INPATIENT Condition: Stable Admissions Decision to Admit Reason: Admit from ER (General) Decision to Admit/Date: Dec 06, 2021 Time/Decision to Admit Time: 18:05 Departure-Patient Inst. Referrals: NO,LOCAL PHYSICIAN (PCP/Family) Primary Care Physician Copy Copies To 1: SHERRI RAMEY MD, JOSHUA T MD Dec 06, 2021 18:16
[2021-12-06 19:30] VITALS: BP 99/59
[2021-12-06] MEDS ORDERED: NS IV 500 ML 500 ML ONE (20:31)
[2021-12-06 21:01] VITALS: BP 98/58
[2021-12-06] MEDS: fentaNYL INJ 100 MCG/2 ML AMP IV PRN (21:01)
[2021-12-06 21:22] VITALS: BP 100/64
[2021-12-06 23:05] VITALS: BP 100/50
[2021-12-06] MEDS: ONDANSETRON 4 MG/2 ML (SDV) Z0FRAN IV PRN (23:09)
[2021-12-06] MEDS: PIPERACILLIN SODIUM/TAZOBACTAM 4.5 GM in NS (IVPB) 100 ML IV SCH (23:09)
[2021-12-06] MEDS: LACTATED RINGERS 1,000 ML IV SCH (23:09)
[2021-12-07] VITALS (24 sets, daily range): BP systolic 67–142; BP diastolic 46–112
[2021-12-07] MEDS: fentaNYL INJ 100 MCG/2 ML AMP IV PRN ×4 (00:34→23:21)
[2021-12-07] MEDS: PIPERACILLIN SODIUM/TAZOBACTAM 4.5 GM in NS (IVPB) 100 ML IV SCH ×3 (05:52→22:46)
[2021-12-07] MEDS: LACTATED RINGERS 1,000 ML IV SCH ×4 (05:52→23:46)
[2021-12-07] MEDS: ONDANSETRON 4 MG/2 ML (SDV) Z0FRAN IV PRN (05:52)
[2021-12-07 07:36] LABS: EOSINOPHILS % (AUTO) 0 % (0-10); HEMATOCRIT 23 % (40-54)
[2021-12-07 07:37] LABS: BASOPHILS # (AUTO) 0.1 10^3/uL (0.0-0.1); BASOPHILS % (AUTO) 1 % (0-10); HEMOGLOBIN 7.2 g/dL (13.3-17.7); LYMPHOCYTES # (AUTO) 2.7 10^3/uL (1.0-4.0); LYMPHOCYTES % (AUTO) 21 % (12-44); MEAN CORPUSCULAR HEMOGLOBIN 27 pg (25-34); MEAN CORPUSCULAR HGB CONC 31 g/dL (32-36); MEAN CORPUSCULAR VOLUME 87 fL (80-99); MONOCYTES # (AUTO) 3.4 10^3/uL (0.0-1.0); MONOCYTES % (AUTO) 26 % (0-12); NEUTROPHILS # (AUTO) 5.4 10^3/uL (1.8-7.8); NEUTROPHILS % (AUTO) 41 % (42-75); WHITE BLOOD COUNT 13.3 10^3/uL (4.3-11.0)
[2021-12-07 07:42] LABS: PLATELET COUNT 6 10^3/uL (130-400)
[2021-12-07 07:48] LABS: POTASSIUM 3.9 MMOL/L (3.6-5.0)
[2021-12-07 07:49] LABS: CALCIUM 7.9 MG/DL (8.5-10.1)
[2021-12-07 07:54] LABS: CREATININE SERUM 1.48 MG/DL (0.60-1.30)
[2021-12-07] MEDS ORDERED: NS IV 1000 ML 1,000 ML ONE ×2 (07:55→12:15)
[2021-12-07] MEDS ORDERED: NS IV 1000 ML 1,000 ML IV SCH ×2 (08:15→10:00)
--- NOTE | 2021-12-07 08:23 | History & Physical-Hospitalist ---
History of Present Illness HPI/Chief Complaint Patient is a 51-year-old man who presented to the emergency department due to diarrhea, nausea, vomiting. Roast Master line was used to conduct interview. He reports his symptoms started yesterday. He gives inconsistent answers to multiple questions. He states that he has leukemia but he does not have a cancer doctor and he has only ever been treated by the emergency room. 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 Reviewing records states that he does follow with [facility] and he did not have adequate response to therapy and is on third line treatment. He was informed of palliative nature of treatment by both [facility] and a cancer doctor here Dr. Pan. He did have worsening symptoms this morning and developed a fever of 39.3. He became hypotensive with this as well and was transferred to the ICU. Source: patient Exam Limitations: language barrier Date Seen 12/07/21 Time Seen by a Provider: 08:18 Attending Physician Danita Deleon MD PCP No,Local Physician Referring Physician Date of Admission Dec 06, 2021 at 18:24 Home Medications & Allergies Home Medications Reviewed patient Home Medication Reconciliation performed by pharmacy medication reconciliations wind turbine technician and/or nursing. Patients Allergies have been reviewed. Allergies Allergies Coded Allergies No Known Drug Allergies (Unverified04/02/20) Past Sxyxfdc-Kakpio-Edzves Hx Patient Social History Tobacco Use?: No Use of E-Cig and/or Vaping dev: No Substance use?: No Alcohol Use?: No Pt feels they are or have been: No Immunizations Up To Date First/Initial COVID19 Vaccinat: 06/06/21 Second COVID19 Vaccination Hung: N/A Tetanus Booster (TDap): Unknown Seasonal Allergies Seasonal Allergies: No Current Status Advance Directives: No Communicates: Verbally Primary Language: Vincentian Preferred Spoken Language: Vincentian Is interpretation needed?: Yes Past Medical History Surgeries: Orthopedic Gastroesophageal Reflux Leukemia (AML) Blood Disorders: Yes (AML with severe thrombocytopenia) Family Medical History Reviewed Nursing Family Hx Brother alive, possible has leukemia as well Review of Systems Constitutional: diaphoresis, fever, weakness EENTM: no symptoms reported Respiratory: No cough, No short of breath Cardiovascular: No chest pain, No edema Gastrointestinal: abdominal pain, diarrhea, nausea, vomiting Genitourinary: hematuria Musculoskeletal: no symptoms reported Skin: no symptoms reported Psychiatric/Neurological: No Symptoms Reported Physical Exam Physical Exam Vital Signs Vital Signs - First Documented 12/06/21 15:25 Temp 36.9 Pulse 133 Resp 22 B/P (MAP) 102/64 (77) Pulse Ox 99 O2 Delivery Room Air Capillary Refill : Less Than 3 Seconds Height, Weight, BMI Height: '" Weight: lbs. oz. kg; 28.61 BMI Method: General Appearance: Chronically ill, Mild Distress (ill appearing, vomiting in to basin at bedside), Other (diaphoretic) HEENT: PERRL/EOMI, Moist Mucous Membranes Neck: Normal Inspection, Supple Respiratory: No Respiratory Distress, Decreased Breath Sounds Cardiovascular: Regular Rate, Rhythm, No Murmur Gastrointestinal: Normal Bowel Sounds, Soft, Guarding; No Rebound; Tenderness (right upper and lower and periumbilcal pain) Genital/Rectal: Other (bloody urine in catheter) Extremity: No Calf Tenderness, No Pedal Edema Neurologic/Psychiatric: Alert, Oriented x3, Normal Mood/Affect Skin: Diaphoresis, Petechia (noted on feet), Other Results Results/Procedures Labs Laboratory Tests 12/06/21 15:48 12/07/21 07:25 Patient resulted labs reviewed. Imaging: Reviewed Imaging Report Imaging [facility] [place] NAME: [facility] REC#: [id number] PT STATUS: REG ER : 1970 PHYSICIAN: BARRY KINNEY MD ADMIT DATE: 12/06/21/ER Signed Date of Exam:12/06/21 CT ABDOMEN/PELVIS W PROCEDURE: CT abdomen and pelvis with contrast. TECHNIQUE: Multiple contiguous axial images were obtained through the abdomen and pelvis after administration of intravenous contrast. Auto Exposure Controls were utilized during the CT exam to meet ALARA standards for radiation dose reduction. All CT scans use one or more of the following dose optimizing techniques: automated exposure control, MA and/or KvP adjustment based on patient size and exam type or iterative reconstruction. INDICATION: Generalized abdominal pain, weakness, nausea and vomiting. COMPARISON: 11/22/2021. FINDINGS: The lung bases are clear. The gallbladder, solid organs, vascular structures and small bowel are normal. There is some slight inflammatory change involving the cecum possibly a focal colitis. There is no free air, free fluid or bowel obstruction. The small bowel is normal. The appendix is grossly unremarkable. Urinary bladder and prostate are normal. There is no hernia. No lymphadenopathy. IMPRESSION: 1. Slight inflammatory change involving the cecum, possibly colitis. Please correlate with point tenderness. 2. No free air, free fluid or bowel obstruction. Dictated by: Dictated on workstation # [id number] Dict: 12/06/21 1659 Trans: 12/06/211705 [facility] [id number] Interpreted by: FRANCIA ONTIVEROS Electronically signed by: FRANCIA ONTIVEROS 12/06/21 3332 Assessment/Plan Admission Diagnosis Sepsis Admission Status: Inpatient Order (span 2 midnights) Reason for Inpatient Admission: see below Assessment and Plan Severe Sepsis Fever, tachycardia, and hypotensive with colitis Transfer to ICU Some components of inflammatory response may be due to leukemia given minimal findings on CT abd UA with few bacteria, await urine and blood cultures Will get CXR Continue Zosyn, add Flagyl Surgery consulted, appreciate recs eiCU consulted, appreciate recs AML, refractory POA Thrombocytopenia, anemia Appears to have refractory AML Very poor prognosis at baseline but with sepsis he will likely not survive th is admission Dr Simms consulted, appreciate assistance Attended family meeting with her, Palliative Care, and family this morning, prognosis was clearly explained to patient and family, family seems to grasp critical illness though patient does not and remains hopeful he will travel to [facility] for treatment for his cancer there Palliative Care consulted, appreciate recs DVT ppx: SCDs only due to thrombocytopenia Diagnosis/Problems Diagnosis/Problems (1) AML (acute myeloblastic leukemia) Status: Acute Qualifiers: Leukemia Active/Remission status: without remission Qualified Codes: C92.00 - Acute myeloblastic leukemia, not having achieved remission (2) Thrombocytopenia Status: Acute (3) Colitis Status: Acute (4) Nausea vomiting and diarrhea Status: Acute (5) Poor prognosis Status: Acute ERIK RAZO MD Dec 07, 2021 08:23
[2021-12-07] MEDS ORDERED: APAP 325 MG/10.15 ML LIQ (TYLENOL) UDC PO PRN (09:30)
[2021-12-07] MEDS ORDERED: NOREPINEPHRINE 8 MG/250 ML 250 ML IV ONE (09:51)
[2021-12-07] MEDS: NOREPINEPHRINE 8 MG/250 ML 250 ML IV SCH (09:57)
--- NOTE | 2021-12-07 10:05 | Consultation - Surgery ---
History of Present Illness History of Present Illness Patient Consulted On(aramis/time) 12/07/21 09:57 Date Seen by Provider: Dec 07, 2021 Time Seen by Provider: 08:35 History of Present Illness Consult requested by Dr. Stern for colitis/sepsis. 51y/o male presented to the emergency room yesterday with complaints of nausea, vomiting, and diarrhea as well as generalized abdominal pain that started earlier that day. He has history of AML for which he has been treated at [facility]. According to documents received from [facility], his recommended treatment course was palliative care. Patient was seen here in the emergency room November 30 and he received a unit of platelets for his severe thrombocytopenia. Apparently follow-up was arranged with the [facility]. There is record of outpatient laboratory work being obtained. 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 Patient has plans to fly to [facility] on December 08 and plans to seek oncology care in [facility] at that time. According to documentation, patient had been offered hospice services. Patient states that he has diffuse abdominal pain and diarrhea. This began yesterday. Nothing seems to make better or worse. Patient pain varies in intensity. Patient having multiple liquid stools yesterday and all night. Denies any nausea or vomiting at the moment. He has a productive cough that has been going on 5-7 months according to pt. He is febile, tachycardic, and hypotension while I was in the room. He had a ct scan yesterday that demonstrates mild colitis of the cecum/ascending colon. His white count was elevated and repeat today has decreased. He was on the fourth floor, having fever, tachycardia and hypotension and was transferred to the ICU. Allergies and Home Medications Allergies Coded Allergies: No Known Drug Allergies (Unverified , 04/02/20) Patient Home Medication List Home Medication List Reviewed: Yes Acyclovir (Acyclovir) 400 Mg Tablet, 400 MG PO 5XD Prescribed by: BOYD MEIER on 11/30/21 1643 Amoxicillin (Amoxicillin) 875 Mg Tablet, Unknown Dose PO, (Reported) Entered as Reported by: ALETHEA BUSBY on 06/12/21 0714 Cefuroxime Axetil (Cefuroxime) 500 Mg Tablet, 500 MG PO BID Prescribed by: BOYD MEIER on 11/30/21 1632 Doxycycline Hyclate (Doxycycline Hyclate) 100 Mg Tablet, 100 MG PO BID Prescribed by: JYOTHI GOMEZ on 04/02/20 1202 Methylprednisolone (Methylprednisolone Dose Pack) 4 Mg Tab.ds.pk, 4 MG PO UD Prescribed by: JYOTHI GOMEZ on 04/02/20 1202 Omeprazole (Omeprazole) 40 Mg Capsule.dr, Unknown Dose PO, (Reported) Entered as Reported by: ALETHEA BUSBY on 06/12/21 0714 Pantoprazole Sodium (Pantoprazole Sodium) 40 Mg Tablet.dr, 40 MG PO DAILY Prescribed by: NICKO MONROY on 11/22/21 1219 [biaxin] , (Reported) Entered as Reported by: ALETHEA BUSBY on 06/12/21 0714 Past Ifkzogf-Ysnnov-Wflrqe Hx Patient Social History Recent Hopitalizations: No Alcohol Use?: No Have you traveled recently?: No Immunizations Up To Date Tetanus Booster (TDap): Unknown Seasonal Allergies Seasonal Allergies: No Surgeries History of Surgeries: Yes Surgeries: Orthopedic Respiratory History of Respiratory Disorde: No Cardiovascular History of Cardiac Disorders: No Neurological History of Neurological Disord: No Genitourinary History of Genitourinary Disor: No Gastrointestinal History of Gastrointestinal Di: Yes Gastrointestinal Disorders: Gastroesophageal Reflux Musculoskeletal History of Musculoskeletal Dis: Yes (EXTENISVE ORTHO SURGERIES LEFT ARM DUE TO TRAUMA WITH RHABDOMYOLYSIS) Endocrine History of Endocrine Disorders: No HEENT History of HEENT Disorders: No Cancer History of Cancer: Yes Cancer: Leukemia (AML) Psychosocial History of Psychiatric Problem: No Integumentary History of Skin or Integumenta: No Blood Transfusions History of Blood Disorders: Yes (AML with severe thrombocytopenia) Reviewed Nursing Assessment Reviewed/Agree w Nursing PMH: Yes Family Medical History Significant Family History: No Pertinent Family Hx Review of Systems-General Constitutional: fever; No weight loss EENTM: No blurred vision, No double vision Respiratory: cough, phlegm Cardiovascular: No chest pain, No palpitations Gastrointestinal: abdominal pain, diarrhea; No nausea, No vomiting Genitourinary: No decreased output, No discharge Musculoskeletal: No back pain, No joint pain Skin: No change in color, No change in hair/nails Psychiatric/Neurological: Denies Anxiety, Denies Depressed All Other Systems Reviewed Negative Unless Noted: Yes (Negative excepted noted.) Physical Exam-General Problems Physical Exam Vital Signs Vital Signs - First Documented 12/06/21 15:25 Temp 36.9 Pulse 133 Resp 22 B/P (MAP) 102/64 (77) Pulse Ox 99 O2 Delivery Room Air Capillary Refill : Less Than 3 Seconds General Appearance: WD/WN, other (appears slightly uncomfortable) HEENT: PERRL/EOMI, normal ENT inspection Neck: non-tender, supple, normal inspection Respiratory: no respiratory distress, no accessory muscle use, other (productive cough) Cardiovascular: no edema, no JVD, tachycardia Gastrointestinal: soft, no organomegaly, no pulsatile mass, guarding (voluntary guarding that improved upon distraction ), tenderness (more on right side, voluntary guarding) Rectal: deferred Back: no CVA tenderness, no vertebral tenderness Extremities: normal inspection, no pedal edema, other (left arm multiple scars) Neurologic/Psychiatric: alert, normal mood/affect, oriented x 3 Skin: normal color, warm/dry Lymphatic: no adenopathy Data Review Labs Laboratory Tests 12/06/21 15:48: White Blood Count 26.0H, Red Blood Count 3.08L, Hemoglobin 8.5L, Hematocrit 27L, Mean Corpuscular Volume 87, Mean Corpuscular Hemoglobin 28, Mean Corpuscular Hemoglobin Concent 32, Red Cell Distribution Width 21.1H, Platelet Count 4*L, Mean Platelet Volume , Immature Granulocyte % (Auto) 11, Neutrophils (%) (Auto) 43, Lymphocytes (%) (Auto) 15, Monocytes (%) (Auto) 31H, Eosinophils (%) (Auto) 0, Basophils (%) (Auto) 1, Neutrophils # (Auto) 11.1H, Lymphocytes # (Auto) 3.9, Monocytes # (Auto) 8.1H, Eosinophils # (Auto) 0.0, Basophils # (Auto) 0.1, Immature Granulocyte # (Auto) 2.8H, Neutrophils % (Manual) 43, Lymphocytes % (Manual) 17, Monocytes % (Manual) 40, Nucleated Red Blood Cells 8, Percent Immature Platelet Fraction 15.0H, Polychromasia SLIGHT, Hypochromasia MODERATE, Target Cells SLIGHT, Prothrombin Time 16.2H, INR Comment 1.3, Activated Partial Thromboplast Time 46H, Sodium Level 135, Potassium Level 4.2, Chloride Level 101, Carbon Dioxide Level 19L, Anion Gap 15H, Blood Urea Nitrogen 18, Creatinine 1.54H, Estimat Glomerular Filtration Rate 54, BUN/Creatinine Ratio 12, Glucose Level 126H, Calcium Level 8.6, Corrected Calcium 8.8, Magnesium Level 1.6, Total Bilirubin 1.4H, Aspartate Amino Transf (AST/SGOT) 66H, Alanine Aminotransferase (ALT/SGPT) 77H, Alkaline Phosphatase 166H, C-Reactive Protein High Sensitivity 17.95H, Total Protein 6.6, Albumin 3.7 12/06/21 16:40: Urine Color REDH, Urine Clarity BLOODYH, Urine pH 6.5, Urine Specific [place] 1.025H, Urine Protein 3+H, Urine Glucose (UA) TRACEH, Urine Ketones 1+H, Urine Nitrite POSITIVEH, Urine Bilirubin NEGATIVE, Urine Urobilinogen 2.0, Urine Leukocyte Esterase 2+H, Urine RBC (Auto) 3+H, Urine RBC TNTCH, Urine WBC 10-25H, Urine Crystals NONE, Urine Bacteria FEWH, Urine Casts NONE, Urine Mucus NEGATIVE, Urine Culture Indicated YES 12/06/21 18:10: Lactic Acid Level 1.16 12/07/21 07:25: White Blood Count 13.3H, Red Blood Count 2.67L, Hemoglobin 7.2L, Hematocrit 23L, Mean Corpuscular Volume 87, Mean Corpuscular Hemoglobin 27, Mean Corpuscular Hemoglobin Concent 31L, Red Cell Distribution Width 21.3H, Platelet Count 6*L, Mean Platelet Volume , Immature Granulocyte % (Auto) 13, Neutrophils (%) (Auto) 41L, Lymphocytes (%) (Auto) 21, Monocytes (%) (Auto) 26H, Eosinophils (%) (Auto) 0, Basophils (%) (Auto) 1, Neutrophils # (Auto) 5.4, Lymphocytes # (Auto) 2.7, Monocytes # (Auto) 3.4H, Eosinophils # (Auto) 0.0, Basophils # (Auto) 0.1, Immature Granulocyte # (Auto) 1.7H, Percent Immature Platelet Fraction 6.6, Sodium Level 132L, Potassium Level 3.9, Chloride Level 102, Carbon Dioxide Level 18L, Anion Gap 12, Blood Urea Nitrogen 14, Creatinine 1.48H, Estimat Glomerular Filtration Rate 57, BUN/Creatinine Ratio 9, Glucose Level 138H, Calcium Level 7.9L 12/07/21 08:38: Lactic Acid Level 2.64*H Assessment/Plan Assessment/Plan Assessment/Plan colitis right colon diarrhea sepsis- tachycardia,hypotension, leukocytosis AML thrombocytopenia leukocytosis-improving anemia cough On Zosyn and metronidazole for colitis, monitor for changes in abdominal pain and abdominal distention. Pt is NPO Fentanyl, morphine for pain control Continue IV fluids, PICC line to be placed if need further access Unit of platelets given, Continue to monitor platelet levels in addition to WBC and Hb Zofran PRN for nausea CXR today Abdominal CT done yesterday, according to radiology, showed slight inflammatory change involving the cecum, possibly colitis with no free air, free fluid, or bowel obstruction He has been recommended palliative care due to AML, I feel poor prognosis. Patent likely not able to clear infection. RENEE DEWITT DO Dec 07, 2021 10:05
[2021-12-07] MEDS ORDERED: NS IV 500 ML 500 ML IV SCH ×2 (11:30→16:00)
[2021-12-07] MEDS ORDERED: diphenhydrAMINE 50 MG/ML INJ (BENADRYL) IVP PRN (11:30)
[2021-12-07] MEDS ORDERED: LACTATED RINGERS 1,000 ML IV SCH (11:30)
--- NOTE | 2021-12-07 11:31 | Tele-ICU Consult ---
History of Present Illness History of Present Illness Date Seen by Provider: Dec 07, 2021 Time Seen by Provider: 11:30 Date of Admission Allergies and Home Medications Allergies Coded Allergies: No Known Drug Allergies (Unverified , 04/02/20) Home Medications Acyclovir 400 Mg Tablet, 400 MG PO 5XD Prescribed by: BOYD MEIER on 11/30/21 1643 Cefuroxime Axetil 500 Mg Tablet, 500 MG PO BID Prescribed by: BOYD MEIER on 11/30/21 1632 Doxycycline Hyclate 100 Mg Tablet, 100 MG PO BID Prescribed by: JYOTHI GOMEZ on 04/02/20 1202 Methylprednisolone 4 Mg Tab.ds.pk, 4 MG PO UD PER DOSE PACK INSTRUCTIONS Prescribed by: JYOTHI GOMEZ on 04/02/20 1202 Pantoprazole Sodium 40 Mg Tablet.dr, 40 MG PO DAILY Prescribed by: NICKO MONROY on 11/22/21 1219 Past Medical/Social/Family Hx Patient Social History Tobacco Use?: No Use of E-Cig and/or Vaping dev: No Substance use?: No Alcohol Use?: No Pt stated abuse/neglect: No Immunizations Up To Date Influenza Vaccine Up-to-Date: No; Not Current First/Initial COVID19 Vaccinat: 06/06/21 Second COVID19 Vaccination Hung: N/A Tetanus Booster (TDap): Unknown Current Status Advance Directives: No Communicates: Verbally Primary Language: Irish Preferred Spoken Language: Irish Is interpretation needed?: Yes Review of Systems Constitutional: see HPI Focused Exam Lactate Level 12/06/21 18:10: Lactic Acid Level 1.16 12/07/21 08:38: Lactic Acid Level 2.64*H 12/07/21 10:50: Lactic Acid Level 2.00 Height, Weight, BMI Height: '" Weight: lbs. oz. kg; 28.61 BMI Method: Lactic Acid Level Laboratory Tests Test 12/07/21 08:38 12/07/21 10:50 Lactic Acid Level 2.64 MMOL/L (0.50-2.00) *H 2.00 MMOL/L (0.50-2.00) Exam Exam Patient acknowledged, consented, and participated in this virtual visit which was conducted using real time audio/video Vital Signs Date Time Temp Pulse Resp B/P (MAP) Pulse Ox O2 Delivery O2 Flow Rate FiO2 12/07/21 10:42 38.4 12/07/21 10:00 120 24 83/46 (58) 93 Room Air 12/07/21 09:57 123 67/48 12/07/21 09:45 39.2 12/07/21 09:00 133 15 90/59 (69) 94 Room Air 12/07/21 08:35 Room Air 12/07/21 08:19 39.3 140 22 86/50 (62) 93 Room Air 12/07/21 04:04 38.1 120 18 102/61 (75) 96 Room Air 12/06/21 23:05 37.9 120 18 100/50 (67) 93 Room Air 12/06/21 21:22 38.0 112 20 100/64 95 Room Air 12/06/21 21:01 37.4 114 20 98/58 99 Room Air 12/06/21 19:45 95 Room Air 12/06/21 19:30 37.8 109 16 99/59 (72) 95 Room Air 12/06/21 19:28 108 18 81/53 99 Room Air 12/06/21 15:25 36.9 133 22 102/64 (77) 99 Room Air I & O 12/07/21 07:00 Intake Total 1200 ml Balance 1200 ml Height & Weight Height: '" Weight: lbs. oz. kg; 28.61 BMI Method: General Appearance: No Apparent Distress Capillary Refill: Less Than 3 Seconds Gastrointestinal: normal bowel sounds, soft, tenderness (Generalized) Results Lab Laboratory Tests 12/06/21 15:48 12/07/21 07:25 Assessment/Plan Assessment/Plan (Tele-ICU Physician , consultation) Available chart/ vitals / labs / Images reviewed H&P is from ER notes Patient's information available about PMH, Shx, Fhx allergy reviewed in EMR. ROS as per chart and RN report Now in ICU, hemodynamically stable Video assessment done using teleICU camera, rest of exam as per RN Discussed with RN. Consultants: Hospital course: (12/06) 51 y/o male with HX of AML admitted in ED with c/o of N/V, diarrhea & abdominal pain. 12/07 - moved to ICU with shock , Colitis/ thrombocytopenia/ AML A/P sepsis, SHOCK -started on levo - cont hydration , added 1 LR - follow - abx expanded - consider stress dose steroids Suspected mild colitis of cecum +/- UTI - cont abx - Zosyn anf Flagyl Anemia., Acute on chronic ( bloody diarrhea , hematuria ) - follw hb , transfuse if < 7 Thrombocytopenia - severe , chronic with AML - will transfuse additional unit , follow LUIS ENRIQUE - cont hydration , follow labs AML - as per chart - recommended treatment course was palliative care , no chemo, but patient plans to seek oncology care in [facility] DNI /DNR as per chart Lines : PICC 12/07 (Central Line Necessity Reviewed) Cardenas: + OG: Nutrition: Analgesia: Anxiety/ delirium VTE Prophylaxis: NA Stress Ulcer Prophylaxis: PPI IV Plans in collaboration with bedside consultants and IM MDs. Discussed with RN to reach out if any questions or concerns A total of 37 minutes of critical care time was devoted to this patient today, required to treat and/or prevent further deterioration of critical care condition ( as above ) . PEDRO LUIS BEAUCHAMP MD Dec 07, 2021 11:31
[2021-12-07] MEDS: LOPERAMIDE 2 MG (IMODIUM) TABLET PO PRN ×2 (12:50→23:45)
--- NOTE | 2021-12-07 12:52 | Diagnostic Imaging Report ---
INDICATION: Lower respiratory infection. EXAMINATION: Portable chest at 9:01 AM. FINDINGS: The heart size and pulmonary vascularity are normal. The lungs are clear. There are no effusions or pneumothoraces. IMPRESSION: No acute abnormalities in the chest. Dictated by: Dictated on workstation # [id number]
--- NOTE | 2021-12-07 13:29 | Oncology Consultation ---
Visit Information Visit Information Date of Admission Dec 07, 2021 at 08:22 Attending Physician Danita Deleon MD Admitting Physician No,Local Physician Chief Complaint Fever, abdominal pain in the setting of refractory AML. Interval History Mr. Chano Villa is a 51 year old man from [facility] who had AML, diagnosed 3 months ago and was treated at [facility] with 7+3 induction chemotherapy 06/18/2021 and did NOT achieve remission. He got 2nd re-induction IDAC 08/03/2021. He did not achieve remission. Bone marrow also showed multiple cytogenetic abnormalities. He was discharged from [facility] with [facility] hospice. He was also seen here by Dr. Pan twice and offered 3rd line therapy which has very minimal benefit for this setting. He declined the treatment. Last seen at the cancer center here was 12/02/2021. His Plt was 4 at that time. He did not want to let the hospice into his house. He presented to ER with fever, abdominal pain, hypotensive and leukocytosis, Hb 8.5 and Plt 4. He speaks no Gibraltarian. He has two friends with him here today. I consulted the patient on: 12/07/21 13:22 Time Seen by Provider: 11:45 Review of Systems Constitutional: no symptoms reported Health Status Allergies Coded Allergies: No Known Drug Allergies (Unverified , 04/02/20) Home Medications Acyclovir (Acyclovir) 400 Mg Tablet, 400 MG PO 5XD, #28 Prescribed by: BOYD MEIER on 11/30/21 1643 Amoxicillin (Amoxicillin) 875 Mg Tablet, Unknown Dose PO, (Reported) Cefuroxime Axetil (Cefuroxime) 500 Mg Tablet, 500 MG PO BID, #14 Prescribed by: BOYD MEIER on 11/30/21 1632 Doxycycline Hyclate (Doxycycline Hyclate) 100 Mg Tablet, 100 MG PO BID, #20 Ref 0 Prescribed by: JYOTHI GOMEZ on 04/02/20 1202 Methylprednisolone (Methylprednisolone Dose Pack) 4 Mg Tab.ds.pk, 4 MG PO UD for 6 Days, #21 PER DOSE PACK INSTRUCTIONS Prescribed by: JYOTHI GOMEZ on 04/02/20 1202 Omeprazole (Omeprazole) 40 Mg Capsule., Unknown Dose PO, (Reported) Pantoprazole Sodium (Pantoprazole Sodium) 40 Mg Tablet., 40 MG PO DAILY for 30 Days, #30 Ref 0 Prescribed by: NICKO MONROY on 11/22/21 1219 [biaxin] , (Reported) [id number]-[id number]-Kfubue Hx Patient Social History Recent Hopitalizations: No Alcohol Use?: No Have you traveled recently?: No Immunizations Up To Date Tetanus Booster (TDap): Unknown Physical Exam Vital Signs Vital Signs - First Documented 12/06/21 15:25 Temp 36.9 Pulse 133 Resp 22 B/P (MAP) 102/64 (77) Pulse Ox 99 O2 Delivery Room Air Capillary Refill : Less Than 3 Seconds Height, Weight, BMI Height: '" Weight: lbs. oz. kg; 28.61 BMI Method: General Appearance: No Apparent Distress HEENT: PERRL/EOMI Neck: Supple Respiratory: No Accessory Muscle Use, No Respiratory Distress Genital/Rectal: Blood at Uretheral Meatus Neurologic/Psychiatric: Alert, Oriented x3 Data Review Labs Laboratory Tests 12/06/21 15:48 12/07/21 07:25 Laboratory Tests 12/06/21 15:48: White Blood Count 26.0H, Red Blood Count 3.08L, Hemoglobin 8.5L, Hematocrit 27L, Red Cell Distribution Width 21.1H, Platelet Count 4*L, Monocytes (%) (Auto) 31H , Neutrophils # (Auto) 11.1H, Monocytes # (Auto) 8.1H, Immature Granulocyte # (Auto) 2.8H, Percent Immature Platelet Fraction 15.0H, Prothrombin Time 16.2H, Activated Partial Thromboplast Time 46H, Carbon Dioxide Level 19L, Anion Gap 15H , Creatinine 1.54H, Glucose Level 126H, Total Bilirubin 1.4H, Aspartate Amino Transf (AST/SGOT) 66H, Alanine Aminotransferase (ALT/SGPT) 77H, Alkaline Phosphatase 166H, C-Reactive Protein High Sensitivity 17.95H 12/06/21 16:40: Urine Color REDH, Urine Clarity BLOODYH, Urine Specific [place] 1.025H, Urine Protein 3+H, Urine Glucose (UA) TRACEH, Urine Ketones 1+H, Urine Nitrite POSITIVEH, Urine Leukocyte Esterase 2+H, Urine RBC (Auto) 3+H, Urine RBC TNTCH, Urine WBC 10-25H, Urine Bacteria FEWH 12/06/21 18:10: 12/07/21 07:25: White Blood Count 13.3H, Red Blood Count 2.67L, Hemoglobin 7.2L, Hematocrit 23L, Red Cell Distribution Width 21.3H, Platelet Count 6*L, Monocytes (%) (Auto) 26H , Monocytes # (Auto) 3.4H, Immature Granulocyte # (Auto) 1.7H, Carbon Dioxide [place] 18L, Creatinine 1.48H, Glucose Level 138H, Mean Corpuscular Hemoglobin Concent 31L, Neutrophils (%) (Auto) 41L, Sodium Level 132L, Calcium Level 7.9L 12/07/21 08:38: Lactic Acid Level 2.64*H 12/07/21 10:50: 12/07/21 12:56: Impression & Plan Impression & Plan IMP: 1. AML primary refractory failed two inductions. [facility] offered hospice but pt would not let hospice care in. Dr Pan offered 3rd line treatment with minimal benefit and pt declined the treatment. 2. CT showed colitis with symptoms of fever and abdominal pain and hypotension on pressures. 3. 50 year old man from [facility], speaks no Gibraltarian. Rec: 1. Pt with AML, specially refractory, often of infection and bleeding, the two most common causes of of the AML. Unfortunately he now has both. At this point, as much as I want to help him but I have no effective treatment in this place at this point. 2. I would agree with [facility] and Dr Pan for hospice care. 3. Treat the infection as you are doing. 4. In terms of transfusion, either plt or RBC, unless we have an achievable goal, would not bring any solutions both short term and mcfp for his current problems. 5. Prognosis is very guarded. ANATOLIY ROBERTO MD Dec 07, 2021 13:29
[2021-12-07] MEDS: metroNIDAZOLE 500MG/100ML IVPB 100 ML IV SCH ×2 (13:38→22:46)
[2021-12-07] MEDS ORDERED: LIDOCAINE UROJET 2% GEL 10 ML PKG ONE ×3 (14:19→18:12)
[2021-12-07 15:41] LABS: MEAN CORPUSCULAR HEMOGLOBIN 28 pg (25-34); MEAN CORPUSCULAR HGB CONC 32 g/dL (32-36); MEAN CORPUSCULAR VOLUME 87 fL (80-99); MEAN PLATELET VOLUME 8.4 fL (9.0-12.2); WHITE BLOOD COUNT 20.4 10^3/uL (4.3-11.0)
[2021-12-07 15:44] LABS: HEMATOCRIT 18 % (40-54); HEMOGLOBIN 5.6 g/dL (13.3-17.7)
[2021-12-07 15:45] LABS: PLATELET COUNT 21 10^3/uL (130-400)
[2021-12-07 15:48] LABS: POTASSIUM 3.4 MMOL/L (3.6-5.0)
[2021-12-07 15:49] LABS: CALCIUM 7.3 MG/DL (8.5-10.1)
[2021-12-07 15:53] LABS: CREATININE SERUM 1.17 MG/DL (0.60-1.30)
[2021-12-07 15:55] LABS: MAGNESIUM 1.7 MG/DL (1.6-2.4)
[2021-12-07] MEDS: ACETAMINOPHEN 325 MG TABLET PO PRN (20:07)
[2021-12-08] VITALS (58 sets, daily range): BP systolic 88–130; BP diastolic 58–90
[2021-12-08] MEDS: morphine INJ 4 MG/ML 1 ML (VIAL/SYRINGE) IV PRN ×2 (01:27→21:17)
[2021-12-08 05:16] LABS: BASOPHILS # (AUTO) 0.1 10^3/uL (0.0-0.1); BASOPHILS % (AUTO) 1 % (0-10); EOSINOPHILS % (AUTO) 0 % (0-10); HEMATOCRIT 26 % (40-54); HEMOGLOBIN 8.5 g/dL (13.3-17.7); LYMPHOCYTES # (AUTO) 2.4 10^3/uL (1.0-4.0); LYMPHOCYTES % (AUTO) 13 % (12-44); MEAN CORPUSCULAR HEMOGLOBIN 28 pg (25-34); MEAN CORPUSCULAR HGB CONC 33 g/dL (32-36); MEAN CORPUSCULAR VOLUME 85 fL (80-99); MONOCYTES # (AUTO) 6.9 10^3/uL (0.0-1.0); MONOCYTES % (AUTO) 39 % (0-12); NEUTROPHILS # (AUTO) 5.8 10^3/uL (1.8-7.8); NEUTROPHILS % (AUTO) 33 % (42-75); WHITE BLOOD COUNT 17.6 10^3/uL (4.3-11.0)
[2021-12-08 05:18] LABS: PLATELET COUNT 9 10^3/uL (130-400)
[2021-12-08 05:25] LABS: POTASSIUM 3.7 MMOL/L (3.6-5.0)
[2021-12-08 05:26] LABS: ALBUMIN 2.8 GM/DL (3.2-4.5)
[2021-12-08 05:27] LABS: CALCIUM 7.5 MG/DL (8.5-10.1)
[2021-12-08 05:28] LABS: TOTAL PROTEIN 4.9 GM/DL (6.4-8.2)
[2021-12-08] MEDS: NOREPINEPHRINE 8 MG/250 ML 250 ML IV SCH ×2 (05:29→21:21)
[2021-12-08 05:30] LABS: BILIRUBIN,TOTAL 1.3 MG/DL (0.1-1.0)
[2021-12-08 05:31] LABS: PHOSPHORUS 2.7 MG/DL (2.3-4.7)
[2021-12-08 05:32] LABS: CREATININE SERUM 1.34 MG/DL (0.60-1.30)
[2021-12-08 05:35] LABS: MAGNESIUM 1.7 MG/DL (1.6-2.4)
[2021-12-08] MEDS: metroNIDAZOLE 500MG/100ML IVPB 100 ML IV SCH ×3 (06:28→21:17)
[2021-12-08] MEDS: MAGNESIUM 1 GM/100 ML IVPB 100 ML IV SCH ×3 (06:28→06:50)
[2021-12-08] MEDS: PIPERACILLIN SODIUM/TAZOBACTAM 4.5 GM in NS (IVPB) 100 ML IV SCH ×3 (06:28→21:17)
[2021-12-08] MEDS: POTASSIUM CL 10MEQ/50ML IVPB 50 ML IV SCH (06:36)
[2021-12-08] MEDS: KCL 20 MEQ TAB (K-DUR) PO SCH (06:36)
[2021-12-08] MEDS: LACTATED RINGERS 1,000 ML IV SCH ×4 (06:37→22:50)
[2021-12-08] MEDS: ONDANSETRON 4 MG/2 ML (SDV) Z0FRAN IV PRN (06:49)
--- NOTE | 2021-12-08 06:49 | Progress Note - Surgery ---
XANDER BAUER 12/08/21 0649: Subjective Date Seen by a Provider: Dec 08, 2021 Time Seen by a Provider: 06:21 Subjective/Events-last exam Pt was sleeping this morning when I entered the room. He awoke easily and was alert with a normal mood. He denied having any more abdominal pains. Pt did have 4 episodes of watery stool last night according to his nurse. Yesterday pt was having issues with urinary retention. According to documentation his catheter was becoming plugged by clots. Irrigation of the catheter was attempted. A coude catheter was then placed and urinary output has been good. This morning he is still having hematuria as the urine in his ford collection bag is red. Also yesterday pt's Hgb dropped to 5.6 and he was given 2 units of pRBCs. Hgb this morning was 8.5. 2 units of platelets given yesterday due to thrombocytopenia. After the transfusion platelet count had risen to 21 but had decreased to 9 this morning. Review of Systems General: No Night Sweats; Other (fever) HEENT: No Visual Changes, No Eye Pain Pulmonary: No Dyspnea; Cough Cardiovascular: No: Chest Pain, Palpitations Gastrointestinal: Diarrhea; No: Abdominal Pain Genitourinary: No Dysuria; Hematuria Musculoskeletal: No: shoulder pain, back pain Neurological: No: Weakness, Numbness Focused Exam Lactate Level 12/06/21 18:10: Lactic Acid Level 1.16 12/07/21 08:38: Lactic Acid Level 2.64*H 12/07/21 10:50: Lactic Acid Level 2.00 Objective Exam Vital Signs Date Time Temp Pulse Resp B/P (MAP) Pulse Ox O2 Delivery O2 Flow Rate FiO2 12/08/21 06:00 111 20 106/72 (83) 91 Room Air 12/08/21 05:00 112 21 124/74 (91) 95 Room Air 12/08/21 04:44 37.9 12/08/21 04:00 Room Air 12/08/21 04:00 109 22 128/72 (90) 91 Room Air 12/08/21 03:00 106 21 119/69 (86) 90 Room Air 12/08/21 02:36 105 21 111/70 91 Room Air 12/08/21 02:00 104 20 116/73 (87) 92 Room Air 12/08/21 01:00 114 12/08/21 01:00 114 16 120/72 (88) 96 Room Air 12/08/21 00:02 Room Air 12/08/21 00:00 108 15 111/70 (84) 92 Room Air 12/07/21 23:50 37.1 109 17 117/75 93 Room Air 12/07/21 23:48 37.3 12/07/21 23:35 37.3 112 21 112/66 94 Room Air 12/07/21 23:00 112 21 108/65 (79) 97 Room Air 12/07/21 22:54 37.1 113 11 88/62 98 Room Air 12/07/21 22:15 114 11 89/53 (65) 98 Room Air 12/07/21 21:30 121 16 101/60 (74) 99 Room Air 12/07/21 20:37 37.3 12/07/21 20:12 37.8 128 17 98/66 95 Room Air 12/07/21 20:07 37.3 12/07/21 20:00 37.3 12/07/21 20:00 126 29 116/63 (81) Room Air 12/07/21 19:57 37.3 125 20 116/63 Room Air 12/07/21 19:45 126 16 101/73 (83) Room Air 12/07/21 19:40 Room Air 12/07/21 19:27 36.4 102 36.7 36.6 12/07/21 19:00 114 12/07/21 18:00 115 16 100/64 (76) 99 Room Air 12/07/21 17:00 100 20 109/75 (86) 95 Room Air 12/07/21 16:45 Room Air 12/07/21 16:00 36.5 12/07/21 16:00 105 127/90 (102) 100 Room Air 12/07/21 15:30 36.7 113 36.7 37.0 12/07/21 15:00 114 13 90/55 (67) 99 Room Air 12/07/21 14:00 82 19 83/53 (63) 100 Room Air 12/07/21 13:00 101 12/07/21 13:00 101 16 142/75 (97) 98 Room Air 12/07/21 12:55 Room Air 12/07/21 12:00 109 23 100/59 (73) 98 Room Air 12/07/21 11:00 109 17 109/64 (79) 98 Room Air 12/07/21 10:42 38.4 12/07/21 10:00 120 24 83/46 (58) 93 Room Air 12/07/21 09:57 123 67/48 12/07/21 09:45 39.2 12/07/21 09:00 133 15 90/59 (69) 94 Room Air 12/07/21 08:35 Room Air 12/07/21 08:34 132 12/07/21 08:19 39.3 140 22 86/50 (62) 93 Room Air I & O 12/08/21 07:00 Intake Total 4620 ml Output Total 1350 ml Balance 3270 ml Capillary Refill : Less Than 3 Seconds General Appearance: No Apparent Distress, Chronically ill, Other (diaphoretic) HEENT: PERRL/EOMI; No Photophobia Neck: Normal Inspection, Non Tender, Supple Respiratory: Chest Non Tender, Normal Breath Sounds, No Accessory Muscle Use, No Respiratory Distress Cardiovascular: No Murmur, Normal Peripheral Pulses, Tachycardia Gastrointestinal: non tender, soft, no organomegaly, no pulsatile mass; No guarding Extremity: Non Tender, No Calf Tenderness, No Pedal Edema Neurologic/Psychiatric: Alert, Normal Mood/Affect Skin: Normal Color, Warm/Dry Lymphatic: No Adenopathy Results Lab Laboratory Tests 12/07/21 07:25: White Blood Count 13.3H, Red Blood Count 2.67L, Hemoglobin 7.2L, Hematocrit 23L, Mean Corpuscular Volume 87, Mean Corpuscular Hemoglobin 27, Mean Corpuscular Hemoglobin Concent 31L, Red Cell Distribution Width 21.3H, Platelet Count 6*L, Mean Platelet Volume , Immature Granulocyte % (Auto) 13, Neutrophils (%) (Auto) 41L, Lymphocytes (%) (Auto) 21, Monocytes (%) (Auto) 26H, Eosinophils (%) (Auto) 0, Basophils (%) (Auto) 1, Neutrophils # (Auto) 5.4, Lymphocytes # (Auto) 2.7, Monocytes # (Auto) 3.4H, Eosinophils # (Auto) 0.0, Basophils # (Auto) 0.1, Immature Granulocyte # (Auto) 1.7H, Percent Immature Platelet Fraction 6.6, Sodium Level 132L, Potassium Level 3.9, Chloride Level 102, Carbon Dioxide Level 18L, Anion Gap 12, Blood Urea Nitrogen 14, Creatinine 1.48H, Estimat Glomerular Filtration Rate 57, BUN/Creatinine Ratio 9, Glucose Level 138H, Calcium Level 7.9L 12/07/21 08:38: Lactic Acid Level 2.64*H 12/07/21 10:50: Lactic Acid Level 2.00 12/07/21 12:56: Lab Scanned Report Transfusion Reaction Form 12/07/21 15:15: White Blood Count 20.4H, Red Blood Count 2.03L, Hemoglobin 5.6*L, Hematocrit 18*L, Mean Corpuscular Volume 87, Mean Corpuscular Hemoglobin 28, Mean Corpuscular Hemoglobin Concent 32, Red Cell Distribution Width 21.2H, Platelet Count 21*L, Mean Platelet Volume 8.4L, Sodium Level 137, Potassium Level 3.4L, Chloride Level 107, Carbon Dioxide Level 21, Anion Gap 9, Blood Urea Nitrogen 13, Creatinine 1.17, Estimat Glomerular Filtration Rate 75, BUN/Creatinine Ratio 11, Glucose Level 121H, Calcium Level 7.3L, Magnesium Level 1.7 12/08/21 05:10: White Blood Count 17.6H, Red Blood Count 3.06L, Hemoglobin 8.5L, Hematocrit 26L, Mean Corpuscular Volume 85, Mean Corpuscular Hemoglobin 28, Mean Corpuscular Hemoglobin Concent 33, Red Cell Distribution Width 19.6H, Platelet Count 9*L, Mean Platelet Volume , Sodium Level 136, Potassium Level 3.7, Chloride Level 105, Carbon Dioxide Level 20L, Anion Gap 11, Blood Urea Nitrogen 13, Creatinine 1.34H, Estimat Glomerular Filtration Rate 64, BUN/Creatinine Ratio 10, Glucose Level 112H, Calcium Level 7.5L, Magnesium Level 1.7, Immature Granulocyte % (Auto) 14, Neutrophils (%) (Auto) 33L, Lymphocytes (%) (Auto) 13, Monocytes (%) (Auto) 39H, Eosinophils (%) (Auto) 0, Basophils (%) (Auto) 1, Neutrophils # (A uto) 5.8, Lymphocytes # (Auto) 2.4, Monocytes # (Auto) 6.9H, Eosinophils # (Auto) 0.0, Basophils # (Auto) 0.1, Immature Granulocyte # (Auto) 2.5H, Corrected Calcium 8.5, Phosphorus Level 2.7, Total Bilirubin 1.3H, Aspartate Amino Transf (AST/SGOT) 39H, Alanine Aminotransferase (ALT/SGPT) 49, Alkaline Phosphatase 108, Total Protein 4.9L, Albumin 2.8L Microbiology 12/06/21 Blood Culture - Preliminary, Resulted No growth 12/06/21 Urine Culture - Final, Complete NO GROWTH Assessment/Plan Assessment/Plan Assessment/Plan colitis-right colon diarrhea sepsis AML thrombocytopenia anemia leukocytosis LUIS ENRIQUE cough hematuria On Zosyn and metronidazole for colitis, monitor for changes in abdominal pain and abdominal distention. Pt is NPO Fentanyl, morphine for pain control Continue IV fluids, coude catheter placed yesterday, monitor urinary output 3 Units of platelets have been given since 12/06, 2 units of pRBCs given yesterday. Continue to monitor platelet levels in addition to WBC and Hgb Zofran PRN for nausea, Imodium for diarrhea, and Protonix for GI prophylaxis CXR yesterday, according to radiology, showed no acute abnormalities in the chest. Abdominal CT done 12/06, according to radiology, showed slight inflammatory change involving the cecum, possibly colitis with no free air, free fluid, or bowel obstruction Being followed by heme/onc and urology He has been recommended palliative care due to AML, Prognosis may be poor. Patent likely not able to clear infection. RENEE BIGGS DO 12/09/21 2003: Subjective Subjective/Events-last exam Paitent with frod placed. Hematuria present. Reports abdomen feeling better. Les pain. Diarrhea slightly improved. Less abdominal pain. Denies n/v fever sweats chills shortness of breath or chest pain. Translater used. Objective Exam General Appearance: No Apparent Distress, Chronically ill HEENT: PERRL/EOMI, Normal ENT Inspection Neck: Normal Inspection, Non Tender Respiratory: Chest Non Tender, No Accessory Muscle Use, No Respiratory Distress Cardiovascular: No JVD, Tachycardia Gastrointestinal: non tender, soft Extremity: Non Tender, No Calf Tenderness Neurologic/Psychiatric: Alert, Oriented x3, Normal Mood/Affect Skin: Normal Color, Warm/Dry Lymphatic: No Adenopathy Assessment/Plan Assessment/Plan Assessment/Plan colitis-right colon diarrhea sepsis AML thrombocytopenia anemia leukocytosis LUIS ENRIQUE cough hematuria Continue abx pain control Continue IV fluids, coude catheter placed yesterday, monitor urinary output 3 Units of platelets have been given since 12/06, 2 units of pRBCs given yesterday. Continue to monitor platelet levels in addition to WBC and Hgb Zofran PRN for nausea, Imodium for diarrhea, and Protonix for GI prophylaxis Abdominal CT done 12/06, according to radiology, showed slight inflammatory change involving the cecum, possibly colitis with no free air, free fluid, or bowel obstruction Being followed by heme/onc and urology He has been recommended palliative care due to AML, Prognosis may be poor. Patent likely not able to clear infection. Informed patient would stick to clear liquid diet. Supervisory-Addendum Brief Verification & Attestation Participated in pt care: history, MDM, physical Personally performed: exam, history, MDM, supervision of care Care discussed with: Medical Student Procedures: n/a Results interpretation: Verified all documentation Verification and Attestation of Medical Student E/M Service A medical student performed and documented this service in my presence. I reviewed and verified all information documented by the medical student and made modifications to such information, when appropriate. I personally performed the physical exam and medical decision making. Renee Biggs, Dec 08, 2021,20:02 XANDER BAUER Dec 08, 2021 06:49 RENEE BIGGS DO Dec 09, 2021 20:03
[2021-12-08] MEDS: PANTOPRAZOLE 40 MG (PROTONIX) VIAL IV SCH (08:20)
[2021-12-08] MEDS: ACETAMINOPHEN 325 MG TABLET PO PRN (08:25)
--- NOTE | 2021-12-08 09:57 | Progress Note - Hospitalist ---
Subjective HPI/CC On Admission Date Seen by Provider: Dec 08, 2021 Time Seen by Provider: 07:30 Patient is a 51-year-old man who presented to the emergency department due to diarrhea, nausea, vomiting. Linen Sorter line was used to conduct interview. He reports his symptoms started yesterday. He gives inconsistent answers to multiple questions. He states that he has leukemia but he does not have a cancer doctor and he has only ever been treated by the emergency room. 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 Reviewing records states that he does follow with [facility] and he did not have adequate response to therapy and is on third line treatment. He was informed of palliative nature of treatment by both [facility] and a cancer doctor here Dr. Pan. He did have worsening symptoms this morning and developed a fever of 39.3. He became hypotensive with this as well and was transferred to the ICU. Subjective/Events-last exam Pt reports feling better today. RN states off pressors. Cardenas was placed last night and is draining well now. Focused Exam Lactate Level 12/06/21 18:10: Lactic Acid Level 1.16 12/07/21 08:38: Lactic Acid Level 2.64*H 12/07/21 10:50: Lactic Acid Level 2.00 Objective Exam Vital Signs Vital Signs Date Time Temp Pulse Resp B/P (MAP) Pulse Ox O2 Delivery O2 Flow Rate FiO2 12/08/21 09:15 121 11 104/76 (87) 98 12/08/21 09:08 37.8 12/08/21 08:45 Room Air Capillary Refill : Less Than 3 Seconds General Appearance: No Apparent Distress Respiratory: Lungs Clear, No Respiratory Distress Cardiovascular: No Murmur, Tachycardia Neurologic/Psychiatric: Alert, Oriented x3 Results/Procedures Lab Laboratory Tests 12/07/21 15:15 12/08/21 05:10 Patient resulted labs reviewed. 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 for treatment for his cancer there Palliative Care consulted, appreciate recs DVT ppx: SCDs only due to thrombocytopenia Diagnosis/Problems Diagnosis/Problems (1) AML (acute myeloblastic leukemia) Status: Acute Qualifiers: Leukemia Active/Remission status: without remission Qualified Codes: C92.00 - Acute myeloblastic leukemia, not having achieved remission (2) Thrombocytopenia Status: Acute (3) Colitis Status: Acute (4) Nausea vomiting and diarrhea Status: Acute (5) Poor prognosis Status: Acute ERIK RAZO MD Dec 08, 2021 09:57
--- NOTE | 2021-12-08 10:14 | Tele-ICU Progress Note ---
Subjective Date Seen by a Provider: Dec 08, 2021 Time Seen by a Provider: 10:13 Sepsis Event Evaluation Height, Weight, BMI Height: '" Weight: lbs. oz. kg; 28.61 BMI Method: Focused Exam Lactate Level 12/06/21 18:10: Lactic Acid Level 1.16 12/07/21 08:38: Lactic Acid Level 2.64*H 12/07/21 10:50: Lactic Acid Level 2.00 Exam Exam Patient acknowledged, consented, and participated in this virtual visit which was conducted using real time audio/video Vital Signs Date Time Temp Pulse Resp B/P (MAP) Pulse Ox O2 Delivery O2 Flow Rate FiO2 12/08/21 09:15 121 11 104/76 (87) 98 12/08/21 09:08 37.8 12/08/21 09:00 122 101/68 (81) 97 12/08/21 08:45 126 21 108/68 (80) 96 Room Air 12/08/21 08:30 126 23 122/74 (101) 95 Room Air 12/08/21 08:25 38.3 12/08/21 08:20 38.3 12/08/21 08:15 109/71 (81) 12/08/21 08:14 95 Room Air 12/08/21 08:00 114/81 (95) 12/08/21 07:45 123 19 114/77 (85) 95 Room Air 12/08/21 07:30 113 23 113/68 (82) 91 Room Air 12/08/21 07:15 118 24 108/77 (93) 95 Room Air 12/08/21 07:00 121 21 111/72 (86) 94 Room Air 12/08/21 07:00 112 12/08/21 06:00 111 20 106/72 (83) 91 Room Air 12/08/21 05:00 112 21 124/74 (91) 95 Room Air 12/08/21 04:44 37.9 12/08/21 04:00 Room Air 12/08/21 04:00 109 22 128/72 (90) 91 Room Air 12/08/21 03:00 106 21 119/69 (86) 90 Room Air 12/08/21 02:36 105 21 111/70 91 Room Air 12/08/21 02:00 104 20 116/73 (87) 92 Room Air 12/08/21 01:00 114 12/08/21 01:00 114 16 120/72 (88) 96 Room Air 12/08/21 00:02 Room Air 12/08/21 00:00 108 15 111/70 (84) 92 Room Air 12/07/21 23:50 37.1 109 17 117/75 93 Room Air 12/07/21 23:48 37.3 12/07/21 23:35 37.3 112 21 112/66 94 Room Air 12/07/21 23:00 112 21 108/65 (79) 97 Room Air 12/07/21 22:54 37.1 113 11 88/62 98 Room Air 12/07/21 22:15 114 11 89/53 (65) 98 Room Air 12/07/21 21:30 121 16 101/60 (74) 99 Room Air 12/07/21 20:37 37.3 12/07/21 20:12 37.8 128 17 98/66 95 Room Air 12/07/21 20:07 37.3 12/07/21 20:00 37.3 12/07/21 20:00 126 29 116/63 (81) Room Air 12/07/21 19:57 37.3 125 20 116/63 Room Air 12/07/21 19:45 126 16 101/73 (83) Room Air 12/07/21 19:40 Room Air 12/07/21 19:27 36.4 102 36.7 36.6 12/07/21 19:00 114 12/07/21 18:00 115 16 100/64 (76) 99 Room Air 12/07/21 17:00 100 20 109/75 (86) 95 Room Air 12/07/21 16:45 Room Air 12/07/21 16:00 36.5 12/07/21 16:00 105 127/90 (102) 100 Room Air 12/07/21 15:30 36.7 113 36.7 37.0 12/07/21 15:00 114 13 90/55 (67) 99 Room Air 12/07/21 14:00 82 19 83/53 (63) 100 Room Air 12/07/21 13:00 101 12/07/21 13:00 101 16 142/75 (97) 98 Room Air 12/07/21 12:55 Room Air 12/07/21 12:00 109 23 100/59 (73) 98 Room Air 12/07/21 11:00 109 17 109/64 (79) 98 Room Air 12/07/21 10:42 38.4 I & O 12/08/21 07:00 Intake Total 4620 ml Output Total 1350 ml Balance 3270 ml Height & Weight Height: '" Weight: lbs. oz. kg; 28.61 BMI Method: General Appearance: No Apparent Distress HEENT: PERRL/EOMI; No Photophobia Neck: Normal Inspection, Non Tender, Supple Respiratory: Lungs Clear, No Respiratory Distress Cardiovascular: No Murmur, Tachycardia Capillary Refill: Less Than 3 Seconds Gastrointestinal: non tender, soft, no organomegaly, no pulsatile mass; No guarding Extremity: Non Tender, No Calf Tenderness, No Pedal Edema Neurologic/Psychiatric: Alert, Oriented x3 Skin: Normal Color, Warm/Dry Lymphatic: No Adenopathy Results Lab Laboratory Tests 12/06/21 15:48 12/07/21 07:25 12/07/21 15:15 12/08/21 05:10 Assessment/Plan Assessment/Plan (Tele-ICU Physician , consultation) Available chart/ vitals / labs / Images reviewed H&P is from ER notes Patient's information available about PMH, Shx, Fhx allergy reviewed in EMR. ROS as per chart and RN report Now in ICU, hemodynamically stable Video assessment done using teleICU camera, rest of exam as per RN Discussed with RN. Consultants: Hospital course: (12/06) 51 y/o male with HX of AML admitted in ED with c/o of N/V, diarrhea & abdominal pain. 12/07 - moved to ICU with shock - levo , Colitis/ thrombocytopenia/ AML 12/07 - transfused 2 U pRBC and 3 u PLT 12/08 diarrhea better , OFF LEVO A/P sepsis, SHOCK -OFF levo - cont hydration - abx expanded Suspected mild colitis of cecum +/- UTI - cont abx - Zosyn anf Flagyl Anemia., Acute on chronic ( bloody diarrhea , hematuria ) - transfused 2 U pRBC 12/07 Urinary retention - ford is in , hematuria present , irrigating PRN Thrombocytopenia - severe , chronic with AML -transfused 3 u PLT 12/07 - follow LUIS ENRIQUE - cont hydration , Cr improving AML - as per chart - recommended treatment course was palliative care , no chemo, but patient plans to seek oncology care in [facility] DNI /DNR as per chart Lines : PICC 12/07 (Central Line Necessity Reviewed) Ford: + OG: Nutrition: Analgesia: Anxiety/ delirium VTE Prophylaxis: NA Stress Ulcer Prophylaxis: PPI IV Plans in collaboration with bedside consultants and IM MDs. Discussed with RN to reach out if any questions or concerns A total of 37 minutes of critical care time was devoted to this patient today, required to treat and/or prevent further deterioration of critical care condition ( as above ) . PEDRO LUIS BEAUCHAMP MD Dec 08, 2021 10:13
--- NOTE | 2021-12-08 13:35 | CONSULTATION REPORT ---
DATE OF SERVICE: 12/08/2021 SUMMARY: A 51-year-old man admitted with diarrhea, nausea, vomiting, poor communicator because of language barrier. He had colitis, possible sepsis, possible UTI. General surgery was consulted. Dr. Sexton was consulted because of AML and thrombocytopenia. The patient has poor prognosis. He was found to have gross hematuria. A 3-way catheter was inserted. It was not draining well and not irrigating well, questionable in the bladder. We told the nurse to take it out and try coude catheter. She was able to insert that; however, drained only 25 mL and again did not seem good. I told the nurse to push it all the way to the hub over the Y connection and it drained 850 mL of urine. Since then, it has been draining well. Told her to hand irrigated on a regular basis and p.r.n. IMPRESSION: Gross hematuria, possible BPH. PLAN: Leave present catheter in, start the patient on Flomax 0.4 mg daily and manage accordingly. Job ID: [id number] DocumentID: [id number] Dictated Date: 12/08/2021 10:30:11 Base Remover Date: 12/08/2021 13:04:58 Dictated By: MINNA SANTIZO MD
[2021-12-08] MEDS: CALCIUM CARBONATE 500 MG (TUMS) TAB.CHEW PO PRN (13:50)
[2021-12-08] MEDS: TAMSULOSIN 0.4 MG (FLOMAX) CAP PO SCH (17:33)
[2021-12-08] MEDS ORDERED: diphenhydrAMINE 25 MG TAB (BENADRYL) PO ONE (20:45)
[2021-12-09] VITALS (28 sets, daily range): BP systolic 98–150; BP diastolic 64–95
[2021-12-09] MEDS: metroNIDAZOLE 500MG/100ML IVPB 100 ML IV SCH ×3 (05:36→20:59)
[2021-12-09] MEDS: PIPERACILLIN SODIUM/TAZOBACTAM 4.5 GM in NS (IVPB) 100 ML IV SCH (05:36)
[2021-12-09 05:42] LABS: BASOPHILS # (AUTO) 0.1 10^3/uL (0.0-0.1); BASOPHILS % (AUTO) 1 % (0-10); EOSINOPHILS % (AUTO) 0 % (0-10); HEMATOCRIT 24 % (40-54); HEMOGLOBIN 7.9 g/dL (13.3-17.7); LYMPHOCYTES # (AUTO) 2.4 10^3/uL (1.0-4.0); LYMPHOCYTES % (AUTO) 14 % (12-44); MEAN CORPUSCULAR HEMOGLOBIN 28 pg (25-34); MEAN CORPUSCULAR HGB CONC 33 g/dL (32-36); MEAN CORPUSCULAR VOLUME 85 fL (80-99); MONOCYTES % (AUTO) 34 % (0-12); NEUTROPHILS # (AUTO) 7.3 10^3/uL (1.8-7.8); NEUTROPHILS % (AUTO) 42 % (42-75); WHITE BLOOD COUNT 17.5 10^3/uL (4.3-11.0)
[2021-12-09 05:44] LABS: PLATELET COUNT 3 10^3/uL (130-400)
[2021-12-09 05:45] LABS: ALBUMIN 2.4 GM/DL (3.2-4.5)
[2021-12-09 05:46] LABS: POTASSIUM 3.8 MMOL/L (3.6-5.0)
[2021-12-09 05:47] LABS: CALCIUM 7.4 MG/DL (8.5-10.1)
[2021-12-09 05:48] LABS: TOTAL PROTEIN 4.5 GM/DL (6.4-8.2)
[2021-12-09] MEDS: KCL 20 MEQ TAB (K-DUR) PO SCH (05:48)
[2021-12-09] MEDS: POTASSIUM CL 10MEQ/50ML IVPB 50 ML IV SCH (05:48)
[2021-12-09 05:50] LABS: BILIRUBIN,TOTAL 1.1 MG/DL (0.1-1.0)
[2021-12-09 05:51] LABS: PHOSPHORUS 1.6 MG/DL (2.3-4.7)
[2021-12-09 05:52] LABS: CREATININE SERUM 1.44 MG/DL (0.60-1.30)
[2021-12-09 05:54] LABS: MAGNESIUM 1.9 MG/DL (1.6-2.4)
[2021-12-09] MEDS: MAGNESIUM 1 GM/100 ML IVPB 100 ML IV SCH (06:09)
--- NOTE | 2021-12-09 06:12 | Tele-ICU Progress Note ---
Subjective Date Seen by a Provider: Dec 09, 2021 Time Seen by a Provider: 06:11 Sepsis Event Evaluation Height, Weight, BMI Height: '" Weight: lbs. oz. kg; 28.61 BMI Method: Focused Exam Lactate Level 12/06/21 18:10: Lactic Acid Level 1.16 12/07/21 08:38: Lactic Acid Level 2.64*H 12/07/21 10:50: Lactic Acid Level 2.00 Exam Exam Patient acknowledged, consented, and participated in this virtual visit which was conducted using real time audio/video Vital Signs Date Time Temp Pulse Resp B/P (MAP) Pulse Ox O2 Delivery O2 Flow Rate FiO2 12/09/21 04:00 37.4 12/09/21 04:00 93 Room Air 12/09/21 03:00 98 17 117/71 (86) 93 Room Air 12/09/21 02:00 105 10 99/64 (76) 90 Room Air 12/09/21 01:00 99 16 98/69 (79) 93 Room Air 12/09/21 01:00 99 12/09/21 00:00 36.2 12/09/21 00:00 93 Room Air 12/08/21 23:00 98 17 114/66 (82) 93 Room Air 12/08/21 22:00 106 10 108/68 (81) 96 Room Air 12/08/21 21:00 105 114/64 (81) 95 Room Air 12/08/21 20:00 108 29 117/68 (84) 94 Room Air 12/08/21 20:00 94 Room Air 12/08/21 20:00 37.6 12/08/21 19:00 105 12/08/21 19:00 105 13 128/73 (91) 95 Room Air 12/08/21 18:30 104 30 116/77 (91) 98 Room Air 12/08/21 18:15 101 22 99/69 (79) 97 Room Air 12/08/21 18:00 106 27 103/67 (81) 93 Room Air 12/08/21 17:45 103 18 109/67 (79) 94 Room Air 12/08/21 17:30 105 11 109/69 (82) 97 Room Air 12/08/21 17:15 102 18 112/75 (83) 98 Room Air 12/08/21 17:00 117 22 115/81 (93) 99 Room Air 12/08/21 16:45 109 12 130/86 (96) 98 Room Air 12/08/21 16:30 35 121/90 (98) 97 Room Air 12/08/21 16:15 98 Room Air 12/08/21 16:15 101 13 111/75 (86) 96 Room Air 12/08/21 16:00 37.2 101 18 114/77 (89) 98 Room Air 12/08/21 16:00 101 18 114/77 (89) 98 12/08/21 15:45 100 11 112/68 (82) 97 Room Air 12/08/21 15:30 99 16 108/66 (85) 97 Room Air 12/08/21 15:15 95 18 97/67 (79) 95 Room Air 12/08/21 15:00 92 19 97/69 (77) 90 Room Air 12/08/21 14:45 97 19 96/69 (77) 90 Room Air 12/08/21 14:30 96 22 94/68 (75) 90 Room Air 12/08/21 14:15 105 13 92/68 (76) 94 Room Air 12/08/21 14:00 98 6 115/70 (81) 96 Room Air 12/08/21 13:45 97 8 114/72 (83) 96 Room Air 12/08/21 13:30 97 20 116/74 (87) 96 Room Air 12/08/21 13:15 97 17 114/72 (85) 98 Room Air 12/08/21 13:00 94 16 109/72 (83) 95 Room Air 12/08/21 13:00 92 12/08/21 12:45 93 20 102/63 (72) 96 Room Air 12/08/21 12:30 97 14 96/60 (72) 93 Room Air 12/08/21 12:15 96 Room Air 12/08/21 12:00 36.7 12/08/21 11:30 112 25 113/66 (82) 98 Room Air 12/08/21 11:15 97/63 (73) 12/08/21 11:00 93/66 (74) 12/08/21 10:45 101 9 93/72 (80) 99 Room Air 12/08/21 10:30 105 12 98/61 (73) 98 Room Air 12/08/21 10:15 106 18 88/60 (69) 98 Room Air 12/08/21 10:04 105 22 94/58 (70) 98 Room Air 12/08/21 10:00 105 27 89/59 (66) 99 Room Air 12/08/21 09:45 113 96/66 (74) 99 Room Air 12/08/21 09:30 120 98/66 (77) 96 Room Air 12/08/21 09:15 121 11 104/76 (87) 98 12/08/21 09:08 37.8 12/08/21 09:00 122 101/68 (81) 97 12/08/21 08:45 126 21 108/68 (80) 96 Room Air 12/08/21 08:30 126 23 122/74 (101) 95 Room Air 12/08/21 08:25 38.3 12/08/21 08:20 38.3 12/08/21 08:15 109/71 (81) 12/08/21 08:14 95 Room Air 12/08/21 08:00 114/81 (95) 12/08/21 07:45 123 19 114/77 (85) 95 Room Air 12/08/21 07:30 113 23 113/68 (82) 91 Room Air 12/08/21 07:15 118 24 108/77 (93) 95 Room Air 12/08/21 07:00 121 21 111/72 (86) 94 Room Air 12/08/21 07:00 112 I & O 12/09/21 07:00 Intake Total 1750 ml Output Total 1925 ml Balance -175 ml Height & Weight Height: '" Weight: lbs. oz. kg; 28.61 BMI Method: General Appearance: No Apparent Distress HEENT: PERRL/EOMI; No Photophobia Neck: Normal Inspection, Non Tender, Supple Respiratory: Lungs Clear, No Respiratory Distress Cardiovascular: No Murmur, Tachycardia Capillary Refill: Less Than 3 Seconds Gastrointestinal: non tender, soft, no organomegaly, no pulsatile mass; No guarding Extremity: Non Tender, No Calf Tenderness, No Pedal Edema Neurologic/Psychiatric: Alert, Oriented x3 Skin: Normal Color, Warm/Dry Lymphatic: No Adenopathy Results Lab Laboratory Tests 12/07/21 07:25 12/07/21 15:15 12/08/21 05:10 12/09/21 05:26 Assessment/Plan Assessment/Plan T-penia: plt 3 no active bleeding; we will transfuse 4u plt FRANCHESKA WALDROP MD Dec 09, 2021 06:12
[2021-12-09] MEDS: LACTATED RINGERS 1,000 ML IV SCH ×3 (06:28→21:10)
--- NOTE | 2021-12-09 06:49 | Progress Note - Surgery ---
XANDER BAUER 12/09/21 0649: Subjective Date Seen by a Provider: Dec 09, 2021 Time Seen by a Provider: 06:29 Subjective/Events-last exam Pt was awake and alert this morning when I entered the room. He reports that he is still having abdominal pain and that his abdomen is distended. Denies any nausea or vomiting. Nursing reports that pt did not have any loose stools over night and he had 1 well formed BM. Started on 2L of O2 via NC due to his SpO2 dropping into the 80s while sleeping. Pt has been having nose bleeds and hematuria. Platelets were 3 thousand this morning. eICU has ordered pt to get 4 units of platelets today. Review of Systems General: No Chills, No Night Sweats HEENT: No Visual Changes, No Eye Pain; Other (epistaxis ) Pulmonary: No Dyspnea; Cough Cardiovascular: No: Chest Pain, Palpitations Gastrointestinal: Abdominal Pain; No: Nausea, Vomiting, Diarrhea Genitourinary: Hematuria; No Retention Musculoskeletal: No: neck pain, shoulder pain Neurological: No: Weakness, Numbness Focused Exam Lactate Level 12/06/21 18:10: Lactic Acid Level 1.16 12/07/21 08:38: Lactic Acid Level 2.64*H 12/07/21 10:50: Lactic Acid Level 2.00 Objective Exam Vital Signs Date Time Temp Pulse Resp B/P (MAP) Pulse Ox O2 Delivery O2 Flow Rate FiO2 12/09/21 06:30 102 14 104/75 (85) 96 Nasal Cannula 2.00 12/09/21 06:00 101 21 104/64 (77) 91 Room Air 12/09/21 05:00 101 14 117/73 (88) 94 Room Air 12/09/21 04:00 37.4 12/09/21 04:00 98 16 112/72 (85) 93 Room Air 12/09/21 04:00 93 Room Air 12/09/21 03:00 98 17 117/71 (86) 93 Room Air 12/09/21 02:00 105 10 99/64 (76) 90 Room Air 12/09/21 01:00 99 16 98/69 (79) 93 Room Air 12/09/21 01:00 99 12/09/21 00:00 36.2 12/09/21 00:00 93 Room Air 12/08/21 23:00 98 17 114/66 (82) 93 Room Air 12/08/21 22:00 106 10 108/68 (81) 96 Room Air 12/08/21 21:00 105 114/64 (81) 95 Room Air 12/08/21 20:00 108 29 117/68 (84) 94 Room Air 12/08/21 20:00 94 Room Air 12/08/21 20:00 37.6 12/08/21 19:00 105 12/08/21 19:00 105 13 128/73 (91) 95 Room Air 12/08/21 18:30 104 30 116/77 (91) 98 Room Air 12/08/21 18:15 101 22 99/69 (79) 97 Room Air 12/08/21 18:00 106 27 103/67 (81) 93 Room Air 12/08/21 17:45 103 18 109/67 (79) 94 Room Air 12/08/21 17:30 105 11 109/69 (82) 97 Room Air 12/08/21 17:15 102 18 112/75 (83) 98 Room Air 12/08/21 17:00 117 22 115/81 (93) 99 Room Air 12/08/21 16:45 109 12 130/86 (96) 98 Room Air 12/08/21 16:30 35 121/90 (98) 97 Room Air 12/08/21 16:15 98 Room Air 12/08/21 16:15 101 13 111/75 (86) 96 Room Air 12/08/21 16:00 37.2 101 18 114/77 (89) 98 Room Air 12/08/21 16:00 101 18 114/77 (89) 98 12/08/21 15:45 100 11 112/68 (82) 97 Room Air 12/08/21 15:30 99 16 108/66 (85) 97 Room Air 12/08/21 15:15 95 18 97/67 (79) 95 Room Air 12/08/21 15:00 92 19 97/69 (77) 90 Room Air 12/08/21 14:45 97 19 96/69 (77) 90 Room Air 12/08/21 14:30 96 22 94/68 (75) 90 Room Air 12/08/21 14:15 105 13 92/68 (76) 94 Room Air 12/08/21 14:00 98 6 115/70 (81) 96 Room Air 12/08/21 13:45 97 8 114/72 (83) 96 Room Air 12/08/21 13:30 97 20 116/74 (87) 96 Room Air 12/08/21 13:15 97 17 114/72 (85) 98 Room Air 12/08/21 13:00 94 16 109/72 (83) 95 Room Air 12/08/21 13:00 92 12/08/21 12:45 93 20 102/63 (72) 96 Room Air 12/08/21 12:30 97 14 96/60 (72) 93 Room Air 12/08/21 12:15 96 Room Air 12/08/21 12:00 36.7 12/08/21 11:30 112 25 113/66 (82) 98 Room Air 12/08/21 11:15 97/63 (73) 12/08/21 11:00 93/66 (74) 12/08/21 10:45 101 9 93/72 (80) 99 Room Air 12/08/21 10:30 105 12 98/61 (73) 98 Room Air 12/08/21 10:15 106 18 88/60 (69) 98 Room Air 12/08/21 10:04 105 22 94/58 (70) 98 Room Air 12/08/21 10:00 105 27 89/59 (66) 99 Room Air 12/08/21 09:45 113 96/66 (74) 99 Room Air 12/08/21 09:30 120 98/66 (77) 96 Room Air 12/08/21 09:15 121 11 104/76 (87) 98 12/08/21 09:08 37.8 12/08/21 09:00 122 101/68 (81) 97 12/08/21 08:45 126 21 108/68 (80) 96 Room Air 12/08/21 08:30 126 23 122/74 (101) 95 Room Air 12/08/21 08:25 38.3 12/08/21 08:20 38.3 12/08/21 08:15 109/71 (81) 12/08/21 08:14 95 Room Air 12/08/21 08:00 114/81 (95) 12/08/21 07:45 123 19 114/77 (85) 95 Room Air 12/08/21 07:30 113 23 113/68 (82) 91 Room Air 12/08/21 07:15 118 24 108/77 (93) 95 Room Air 12/08/21 07:00 121 21 111/72 (86) 94 Room Air 12/08/21 07:00 112 I & O 12/09/21 07:00 Intake Total 1750 ml Output Total 1925 ml Balance -175 ml Capillary Refill : Less Than 3 Seconds General Appearance: No Apparent Distress, Chronically ill HEENT: PERRL/EOMI; No Photophobia Neck: Normal Inspection, Non Tender, Supple Respiratory: Lungs Clear, No Accessory Muscle Use, No Respiratory Distress Cardiovascular: No Murmur, Normal Peripheral Pulses, Tachycardia Gastrointestinal: soft, no organomegaly, no pulsatile mass, distended (slight), tenderness (diffuse R>L) Extremity: Non Tender, No Calf Tenderness, No Pedal Edema Neurologic/Psychiatric: Alert, Normal Mood/Affect Skin: Normal Color, Warm/Dry Lymphatic: No Adenopathy Results Lab Laboratory Tests 12/08/21 13:40: Lab Scanned Report Transfusion Reaction Form 12/09/21 05:26: White Blood Count 17.5H, Red Blood Count 2.83L, Hemoglobin 7.9L, Hematocrit 24L, Mean Corpuscular Volume 85, Mean Corpuscular Hemoglobin 28, Mean Corpuscular Hemoglobin Concent 33, Red Cell Distribution Width 19.7H, Platelet Count 3*L, Mean Platelet Volume , Immature Granulocyte % (Auto) 10, Neutrophils (%) (Auto) 42, Lymphocytes (%) (Auto) 14, Monocytes (%) (Auto) 34H, Eosinophils (%) (Auto) 0, Basophils (%) (Auto) 1, Neutrophils # (Auto) 7.3, Lymphocytes # (Auto) 2.4, Monocytes # (Auto) 6.0H, Eosinophils # (Auto) 0.0, Basophils # (Auto) 0.1, Immature Granulocyte # (Auto) 1.7H, Sodium Level 134L, Potassium Level 3.8, Chloride Level 103, Carbon Dioxide Level 21, Anion Gap 10, Blood Urea Nitrogen 11, Creatinine 1.44H, Estimat Glomerular Filtration Rate 58, BUN/Creatinine Ratio 8, Glucose Level 112H, Calcium Level 7.4L, Corrected Calcium 8.7, Phosphorus Level 1.6L, Magnesium Level 1.9, Total Bilirubin 1.1H, Aspartate Amino Transf (AST/SGOT) 25, Alanine Aminotransferase (ALT/SGPT) 29, Alkaline Phosphatase 137H, Total Protein 4.5L, Albumin 2.4L Microbiology 12/06/21 Blood Culture - Preliminary, Resulted No growth 12/06/21 Urine Culture - Final, Complete NO GROWTH Assessment/Plan Assessment/Plan Assessment/Plan colitis-right colon sepsis AML thrombocytopenia anemia leukocytosis LUIS ENRIQUE cough hematuria On Zosyn and metronidazole for colitis, monitor for changes in abdominal pain and abdominal distention. Clear liquid diet Fentanyl, morphine for pain control Continue IV fluids, coude catheter placed 12/07, has been started on Flomax by urology, monitor urinary output Will be receiving 4 units of platelets today via order from eICU, 2 Units of platelets given on 12/07 and 1 unit on 12/06, 2 units of pRBCs given 12/07. Continue to monitor platelet levels in addition to WBC and Hgb Taking Zofran PRN for nausea, Imodium for diarrhea, and Protonix for GI prophylaxis CXR on 12/08, according to radiology, showed no acute abnormalities in the chest. Abdominal CT done 12/06, according to radiology, showed slight inflammatory change involving the cecum, possibly colitis with no free air, free fluid, or bowel obstruction Being followed by heme/onc and urology He has been recommended palliative care due to AML, Prognosis may be poor. Patent likely not able to clear infection. RENEE BIGGS DO 12/09/212007: Subjective Subjective/Events-last exam Patient abdomen slightly distended this morning. He is currently eating sausage and gravy. Not having any nausea. No diarrhea, passing flatus. WBC up. Having nose bleeds. Denies n/v fever sweats chills shortness of breath or chest pain. Wanting to go to [facility]. Objective Exam General Appearance: No Apparent Distress, Chronically ill HEENT: PERRL/EOMI, Normal ENT Inspection Neck: Non Tender, Supple Respiratory: Chest Non Tender, No Accessory Muscle Use, No Respiratory Distress Cardiovascular: No JVD, Tachycardia Gastrointestinal: non tender, soft, distended (slight) Extremity: Normal Inspection (left upper extremity scars), Non Tender Neurologic/Psychiatric: Alert, Oriented x3, Normal Mood/Affect Skin: Normal Color, Warm/Dry Lymphatic: No Adenopathy Assessment/Plan Assessment/Plan Assessment/Plan colitis-right colon sepsis AML thrombocytopenia anemia leukocytosis LUIS ENRIQUE cough hematuria Continue abx slight distention, eating regular diet would keep on clears for now. Fentanyl, morphine for pain control Continue IV fluids, coude catheter placed 12/07, has been started on Flomax by urology, monitor urinary output Will be receiving 4 units of platelets today via order from eICU, 2 Units of platelets given on 12/07 and 1 unit on 12/06, 2 units of pRBCs given 12/07. Continue to monitor platelet levels in addition to WBC and Hgb Taking Zofran PRN for nausea, Imodium for diarrhea, and Protonix for GI prophylaxis CXR on 12/08, according to radiology, showed no acute abnormalities in the chest. Abdominal CT done 12/06, according to radiology, showed slight inflammatory change involving the cecum, possibly colitis with no free air, free fluid, or bowel obstruction Being followed by heme/onc and urology He has been recommended palliative care due to AML, Prognosis may be poor. Patent likely not able to clear infection. Salesperson [employer] used with patient. Supervisory-Addendum Brief Verification & Attestation Participated in pt care: history, MDM, physical Personally performed: exam, history, MDM, supervision of care Care discussed with: Medical Student Procedures: n/a Results interpretation: Verified all documentation Verification and Attestation of Medical Student E/M Service A medical student performed and documented this service in my presence. I reviewed and verified all information documented by the medical student and made modifications to such information, when appropriate. I personally performed the physical exam and medical decision making. Renee Biggs, Dec 09, 2021,20:08 XANDER BAUER Dec 09, 2021 06:49 RENEE BIGGS DO Dec 09, 2021 20:08
[2021-12-09] MEDS: PANTOPRAZOLE 40 MG (PROTONIX) VIAL IV SCH (08:32)
[2021-12-09] MEDS: ACETAMINOPHEN 325 MG TABLET PO PRN (08:41)
--- NOTE | 2021-12-09 08:42 | Progress Note - Hospitalist ---
Subjective HPI/CC On Admission Date Seen by Provider: Dec 09, 2021 Time Seen by Provider: 08:36 Patient is a 51-year-old man who presented to the emergency department due to diarrhea, nausea, vomiting. Plant Facilities Technician line was used to conduct interview. He reports his symptoms started yesterday. He gives inconsistent answers to multiple questions. He states that he has leukemia but he does not have a cancer doctor and he has only ever been treated by the emergency room. 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 Reviewing records states that he does follow with [facility] and he did not have adequate response to therapy and is on third line treatment. He was informed of palliative nature of treatment by both [facility] and a cancer doctor here Dr. Pan. He did have worsening symptoms this morning and developed a fever of 39.3. He became hypotensive with this as well and was transferred to the ICU. Subjective/Events-last exam Plant Facilities Technician line used. Patient reports feeling much better and denies complaints. Then when asked specifically about his abd he states it is still painful. He also requests something for congestion for his nose as he had a bloody nose. After out discussion brother followed me outside of the room to again ask when he would be able to go to [facility]. We discussed again how severe his AML is and that I'm not sure he will make it out of the hospital alive and then odds of making it to [facility] are minimal. He nodded and asked me to let him know if that changes. Focused Exam Lactate Level 12/06/21 18:10: Lactic Acid Level 1.16 12/07/21 08:38: Lactic Acid Level 2.64*H 12/07/21 10:50: Lactic Acid Level 2.00 Objective Exam Vital Signs Vital Signs Date Time Temp Pulse Resp B/P (MAP) Pulse Ox O2 Delivery O2 Flow Rate FiO2 12/09/21 07:48 38.0 12/09/21 06:30 102 14 104/75 (85) 96 Nasal Cannula 2.00 Capillary Refill : Less Than 3 Seconds General Appearance: No Apparent Distress, Chronically ill HEENT: Other (some bloody crusting in nares) Respiratory: Lungs Clear, No Respiratory Distress Cardiovascular: Regular Rate, Rhythm, No Murmur Gastrointestinal: Normal Bowel Sounds, Soft Extremity: No Calf Tenderness, No Pedal Edema Neurologic/Psychiatric: Alert, Oriented x3 Results/Procedures Lab Laboratory Tests 12/09/21 05:26 Patient resulted labs reviewed. Imaging: Reviewed Imaging Report Assessment/Plan Assessment and Plan Assess & Plan/Chief Complaint Septic Shock Off pressors Some components of inflammatory response may be due to leukemia given minimal findings on CT abd Urine culture with no growth, CXR negative, blood cultures NGTD Continue Zosyn and Flagyl Surgery consulted, appreciate recs eiCU consulted, appreciate recs AML, refractory POA Thrombocytopenia, anemia Hematuria Appears to have refractory AML Plt transfusion ordered by eICU Dr Simms consulted, appreciate assistance Dr Duff consulted due to hematuria, appreciate assistance Palliative Care consulted, appreciate recs Discussed with brother again regarding realistic goals for patient given his very poor prognosis DVT ppx: SCDs only due to thrombocytopenia Diagnosis/Problems Diagnosis/Problems (1) AML (acute myeloblastic leukemia) Status: Acute Qualifiers: Leukemia Active/Remission status: without remission Qualified Codes: C92.00 - Acute myeloblastic leukemia, not having achieved remission (2) Thrombocytopenia Status: Acute (3) Colitis Status: Acute (4) Nausea vomiting and diarrhea Status: Acute (5) Poor prognosis Status: Acute ERIK RAZO MD Dec 09, 2021 08:41
[2021-12-09] MEDS ORDERED: NORMAL SALINE 250 ML ONE (09:44)
[2021-12-09] MEDS: FLUTICASONE NASAL SPRAY (FLONASE) 16 GM BTL NS SCH (10:46)
[2021-12-09] MEDS ORDERED: ACET-2267 PO (11:00)
[2021-12-09] MEDS ORDERED: IBUP-2473 PO (11:01)
--- NOTE | 2021-12-09 11:14 | Tele-ICU Progress Note ---
Subjective Date Seen by a Provider: Dec 09, 2021 Time Seen by a Provider: 11:14 Sepsis Event Evaluation Height, Weight, BMI Height: '" Weight: lbs. oz. kg; 28.61 BMI Method: Focused Exam Lactate Level 12/06/21 18:10: Lactic Acid Level 1.16 12/07/21 08:38: Lactic Acid Level 2.64*H 12/07/21 10:50: Lactic Acid Level 2.00 Exam Exam Patient acknowledged, consented, and participated in this virtual visit which was conducted using real time audio/video Vital Signs Date Time Temp Pulse Resp B/P (MAP) Pulse Ox O2 Delivery O2 Flow Rate FiO2 12/09/21 10:24 37.7 12/09/21 10:13 37.7 107 24 110/73 98 12/09/21 08:41 38.0 12/09/21 07:48 38.0 12/09/21 07:00 117 12/09/21 06:30 102 14 104/75 (85) 96 Nasal Cannula 2.00 12/09/21 06:00 101 21 104/64 (77) 91 Room Air 12/09/21 05:00 101 14 117/73 (88) 94 Room Air 12/09/21 04:00 37.4 12/09/21 04:00 98 16 112/72 (85) 93 Room Air 12/09/21 04:00 93 Room Air 12/09/21 03:00 98 17 117/71 (86) 93 Room Air 12/09/21 02:00 105 10 99/64 (76) 90 Room Air 12/09/21 01:00 99 16 98/69 (79) 93 Room Air 12/09/21 01:00 99 12/09/21 00:00 36.2 12/09/21 00:00 93 Room Air 12/08/21 23:00 98 17 114/66 (82) 93 Room Air 12/08/21 22:00 106 10 108/68 (81) 96 Room Air 12/08/21 21:00 105 114/64 (81) 95 Room Air 12/08/21 20:00 108 29 117/68 (84) 94 Room Air 12/08/21 20:00 94 Room Air 12/08/21 20:00 37.6 12/08/21 19:00 105 12/08/21 19:00 105 13 128/73 (91) 95 Room Air 12/08/21 18:30 104 30 116/77 (91) 98 Room Air 12/08/21 18:15 101 22 99/69 (79) 97 Room Air 12/08/21 18:00 106 27 103/67 (81) 93 Room Air 12/08/21 17:45 103 18 109/67 (79) 94 Room Air 12/08/21 17:30 105 11 109/69 (82) 97 Room Air 12/08/21 17:15 102 18 112/75 (83) 98 Room Air 12/08/21 17:00 117 22 115/81 (93) 99 Room Air 12/08/21 16:45 109 12 130/86 (96) 98 Room Air 12/08/21 16:30 35 121/90 (98) 97 Room Air 12/08/21 16:15 98 Room Air 12/08/21 16:15 101 13 111/75 (86) 96 Room Air 12/08/21 16:00 37.2 101 18 114/77 (89) 98 Room Air 12/08/21 16:00 101 18 114/77 (89) 98 12/08/21 15:45 100 11 112/68 (82) 97 Room Air 12/08/21 15:30 99 16 108/66 (85) 97 Room Air 12/08/21 15:15 95 18 97/67 (79) 95 Room Air 12/08/21 15:00 92 19 97/69 (77) 90 Room Air 12/08/21 14:45 97 19 96/69 (77) 90 Room Air 12/08/21 14:30 96 22 94/68 (75) 90 Room Air 12/08/21 14:15 105 13 92/68 (76) 94 Room Air 12/08/21 14:00 98 6 115/70 (81) 96 Room Air 12/08/21 13:45 97 8 114/72 (83) 96 Room Air 12/08/21 13:30 97 20 116/74 (87) 96 Room Air 12/08/21 13:15 97 17 114/72 (85) 98 Room Air 12/08/21 13:00 94 16 109/72 (83) 95 Room Air 12/08/21 13:00 92 12/08/21 12:45 93 20 102/63 (72) 96 Room Air 12/08/21 12:30 97 14 96/60 (72) 93 Room Air 12/08/21 12:15 96 Room Air 12/08/21 12:00 36.7 12/08/21 11:30 112 25 113/66 (82) 98 Room Air 12/08/21 11:15 97/63 (73) I & O 12/09/21 07:00 Intake Total 1750 ml Output Total 1925 ml Balance -175 ml Height & Weight Height: '" Weight: lbs. oz. kg; 28.61 BMI Method: General Appearance: No Apparent Distress, Chronically ill HEENT: PERRL/EOMI; No Photophobia Neck: Normal Inspection, Non Tender, Supple Respiratory: Lungs Clear, No Accessory Muscle Use, No Respiratory Distress Cardiovascular: No Murmur, Normal Peripheral Pulses, Tachycardia Capillary Refill: Less Than 3 Seconds Gastrointestinal: soft, no organomegaly, no pulsatile mass, distended (slight), tenderness (diffuse R>L) Extremity: Non Tender, No Calf Tenderness, No Pedal Edema Neurologic/Psychiatric: Alert, Normal Mood/Affect Skin: Normal Color, Warm/Dry Lymphatic: No Adenopathy Results Lab Laboratory Tests 12/07/21 15:15 12/08/21 05:10 12/09/21 05:26 Assessment/Plan Assessment/Plan (Tele-ICU Physician , Progress Note ) Available chart/ vitals / labs / Images reviewed Video assessment done using teleICU camera, rest of exam as per RN Discussed with RN , EXAM PER RN Events overnight : Afebrile FiO2 - ra I/O =pos 500 Drips: Pressors: , hemodynamically stable Consultants: sx. hem-onc , urology Hospital course: (12/06) 51 y/o male with HX of AML admitted in ED with c/o of N/V, diarrhea & abdominal pain. 12/07 - moved to ICU with shock - levo , Colitis/ thrombocytopenia/ AML 12/07 - transfused 2 U pRBC and 3 u PLT 12/08 diarrhea better , OFF LEVO 12/09 transfusion PLT A/P sepsis, SHOCK -OFF levo - cont hydration - abx to cont Suspected mild colitis of cecum +/- UTI - cont abx - cefepime anf Flagyl Anemia., Acute on chronic ( bloody diarrhea , hematuria ) - transfused 2 U pRBC 12/07 Urinary retention - ford is in , hematuria still present , irrigating PRN - - urology follow Thrombocytopenia - severe , chronic with AML -transfused 3 u PLT 12/07 - , 4 u 12/09 LUIS ENRIQUE - cont hydration , Cr WORSENING AML - as per oncology , prognosis is very guarded , no TX , recom hospice DNI /DNR as per chart Lines : PICC 12/07 (Central Line Necessity Reviewed) Ford: + OG: Nutrition: Analgesia: Anxiety/ delirium VTE Prophylaxis: NA Stress Ulcer Prophylaxis: PPI IV Plans in collaboration with bedside consultants and IM MDs. Discussed with RN to reach out if any questions or concerns A total of 37 minutes of critical care time was devoted to this patient today, required to treat and/or prevent further deterioration of critical care condition ( as above ) . PEDRO LUIS BEAUCHAMP MD Dec 09, 2021 11:14
[2021-12-09] MEDS: NOREPINEPHRINE 8 MG/250 ML 250 ML IV SCH (12:27)
[2021-12-09] MEDS: CEFEPIME INJECTION 1,000 MG in NS (IVPB) 50 ML IV SCH ×2 (13:14→17:29)
[2021-12-09 15:00] LABS: HEMATOCRIT 23 % (40-54); HEMOGLOBIN 7.7 g/dL (13.3-17.7); MEAN CORPUSCULAR HEMOGLOBIN 28 pg (25-34); MEAN CORPUSCULAR HGB CONC 33 g/dL (32-36); MEAN CORPUSCULAR VOLUME 86 fL (80-99); WHITE BLOOD COUNT 21.5 10^3/uL (4.3-11.0)
[2021-12-09 15:03] LABS: PLATELET COUNT 17 10^3/uL (130-400)
[2021-12-09] MEDS: TAMSULOSIN 0.4 MG (FLOMAX) CAP PO SCH (17:29)
[2021-12-09] MEDS ORDERED: diphenhydrAMINE 25 MG TAB (BENADRYL) PO PRN (20:15)
[2021-12-09] MEDS: CALCIUM CARBONATE 500 MG (TUMS) TAB.CHEW PO PRN (21:10)
[2021-12-09] MEDS ORDERED: SIMETHICONE 80 MG (MYLICON) CHEW PO PRN (22:00)
[2021-12-10] VITALS (16 sets, daily range): BP systolic 109–151; BP diastolic 69–113
[2021-12-10] MEDS: CEFEPIME INJECTION 1,000 MG in NS (IVPB) 50 ML IV SCH ×5 (00:07→23:43)
[2021-12-10] MEDS: LACTATED RINGERS 1,000 ML IV SCH ×3 (04:38→20:43)
[2021-12-10] MEDS: ONDANSETRON 4 MG/2 ML (SDV) Z0FRAN IV PRN ×2 (04:41→20:43)
[2021-12-10 04:57] LABS: EOSINOPHILS % (AUTO) 0 % (0-10); MEAN CORPUSCULAR HEMOGLOBIN 28 pg (25-34); MEAN CORPUSCULAR HGB CONC 33 g/dL (32-36)
[2021-12-10 04:59] LABS: BASOPHILS # (AUTO) 0.1 10^3/uL (0.0-0.1); BASOPHILS % (AUTO) 0 % (0-10); HEMATOCRIT 22 % (40-54); HEMOGLOBIN 7.3 g/dL (13.3-17.7); LYMPHOCYTES # (AUTO) 2.9 10^3/uL (1.0-4.0); LYMPHOCYTES % (AUTO) 16 % (12-44); MEAN CORPUSCULAR VOLUME 85 fL (80-99); MONOCYTES # (AUTO) 4.8 10^3/uL (0.0-1.0); MONOCYTES % (AUTO) 27 % (0-12); NEUTROPHILS # (AUTO) 7.3 10^3/uL (1.8-7.8); NEUTROPHILS % (AUTO) 41 % (42-75)
[2021-12-10 05:35] LABS: ALBUMIN 2.3 GM/DL (3.2-4.5); POTASSIUM 3.6 MMOL/L (3.6-5.0)
[2021-12-10 05:36] LABS: CALCIUM 7.4 MG/DL (8.5-10.1)
[2021-12-10 05:37] LABS: PLATELET COUNT 4 10^3/uL (130-400)
[2021-12-10 05:38] LABS: TOTAL PROTEIN 4.3 GM/DL (6.4-8.2)
[2021-12-10 05:41] LABS: CREATININE SERUM 1.31 MG/DL (0.60-1.30); PHOSPHORUS 1.8 MG/DL (2.3-4.7)
[2021-12-10 05:44] LABS: MAGNESIUM 1.8 MG/DL (1.6-2.4)
[2021-12-10] MEDS: fentaNYL INJ 100 MCG/2 ML AMP IV PRN ×3 (06:05→10:49)
[2021-12-10] MEDS: POTASSIUM CL 10MEQ/50ML IVPB 50 ML IV SCH (06:10)
[2021-12-10] MEDS: metroNIDAZOLE 500MG/100ML IVPB 100 ML IV SCH ×3 (06:10→22:06)
[2021-12-10] MEDS: MAGNESIUM 1 GM/100 ML IVPB 100 ML IV SCH (06:11)
[2021-12-10] MEDS: KCL 20 MEQ TAB (K-DUR) PO SCH (06:11)
--- NOTE | 2021-12-10 07:13 | Progress Note - Surgery ---
XANDER BAUER 12/10/21 0713: Subjective Date Seen by a Provider: Dec 10, 2021 Time Seen by a Provider: 06:43 Subjective/Events-last exam Pt was having some abdominal pain this morning. He was given fentanyl and he now states that the abdominal pain has improved. Says that his abdomen feels less d istended than it was yesterday. According to nursing he had 1 small semi-loose stool last night. Hematuria is still present. No longer having any episodes of epistaxis. He has been coughing. On 2L of supplementalO2 via NC at night and none during the day. According to documentation pt only received 1 unit of platelets yesterday due to blood bank shortage. Review of Systems General: No Chills, No Night Sweats HEENT: No Head Aches, No Visual Changes Pulmonary: No Dyspnea; Cough Cardiovascular: No: Chest Pain, Palpitations Gastrointestinal: Abdominal Pain; No: Nausea, Vomiting Genitourinary: No Dysuria; Hematuria Musculoskeletal: No: neck pain, back pain Neurological: No: Weakness, Numbness Focused Exam Lactate Level 12/07/21 08:38: Lactic Acid Level 2.64*H 12/07/21 10:50: Lactic Acid Level 2.00 Objective Exam Vital Signs Date Time Temp Pulse Resp B/P (MAP) Pulse Ox O2 Delivery O2 Flow Rate FiO2 12/10/21 06:00 108 15 126/77 (93) 97 Nasal Cannula 2.00 12/10/21 05:00 101 18 131/91 (104) 96 Nasal Cannula 2.00 12/10/21 04:00 93 Room Air 12/10/21 04:00 95 21 116/77 (90) 95 Nasal Cannula 2.00 12/10/21 03:00 99 20 109/69 (82) 93 Nasal Cannula 2.00 12/10/21 02:00 98 20 125/73 (90) 92 Nasal Cannula 2.00 12/10/21 01:00 98 20 131/78 (95) 93 Nasal Cannula 2.00 12/10/21 01:00 98 12/10/21 00:00 134 14 112/77 (89) 98 Nasal Cannula 2.00 12/10/21 00:00 93 Room Air 12/09/21 23:00 101 20 122/74 (90) 92 Nasal Cannula 2.00 12/09/21 22:00 105 22 134/77 (96) 92 Nasal Cannula 2.00 12/09/21 21:00 103 21 125/86 (99) 96 Nasal Cannula 2.00 12/09/21 20:00 99 18 129/86 (100) 96 Nasal Cannula 2.00 12/09/21 20:00 93 Room Air 12/09/21 19:23 37.5 12/09/21 19:00 101 15 150/95 (113) 98 Nasal Cannula 2.00 12/09/21 19:00 101 12/09/21 18:00 99 20 134/82 (99) 97 Nasal Cannula 2.00 12/09/21 17:00 98 19 124/85 (98) 98 Nasal Cannula 2.00 12/09/21 16:00 93 Room Air 12/09/21 16:00 95 16 118/85 (96) 97 Nasal Cannula 2.00 12/09/21 15:32 36.5 12/09/21 15:00 96 15 140/86 (104) 98 Nasal Cannula 2.00 12/09/21 14:00 101 11 144/90 (108) 99 Nasal Cannula 2.00 12/09/21 13:00 96 12/09/21 13:00 96 22 130/92 (105) 97 Nasal Cannula 2.00 12/09/21 12:00 93 Room Air 12/09/21 12:00 101 15 115/73 (87) 97 Nasal Cannula 2.00 12/09/21 11:35 37.9 12/09/21 11:00 98 28 118/81 (93) 97 Nasal Cannula 2.00 12/09/21 10:45 37.7 100 22 106/73 98 12/09/21 10:28 37.9 101 14 116/78 98 12/09/21 10:24 37.7 12/09/21 10:13 37.7 107 24 110/73 98 12/09/21 10:00 94 18 106/73 (84) 93 Nasal Cannula 2.00 12/09/21 09:00 106 25 112/71 (85) 95 Nasal Cannula 2.00 12/09/21 08:41 38.0 12/09/21 08:00 117 15 109/77 (88) 98 Nasal Cannula 2.00 12/09/21 08:00 93 Room Air 12/09/21 07:48 38.0 I & O 12/10/21 07:00 Intake Total 2938 ml Output Total 2545 ml Balance 393 ml Capillary Refill : Less Than 3 Seconds General Appearance: No Apparent Distress, Chronically ill HEENT: PERRL/EOMI; No Photophobia Neck: Non Tender, Supple Respiratory: Chest Non Tender, No Accessory Muscle Use, No Respiratory Distress Cardiovascular: Regular Rate, Rhythm, No JVD, Normal Peripheral Pulses Gastrointestinal: non tender, soft, distended (slight) Extremity: Normal Inspection (left upper extremity scars), Non Tender, No Calf Tenderness, No Pedal Edema Neurologic/Psychiatric: Alert, Oriented x3, Normal Mood/Affect Skin: Normal Color, Warm/Dry Lymphatic: No Adenopathy Results Lab Laboratory Tests 12/09/21 14:37: White Blood Count 21.5H, Red Blood Count 2.72L, Hemoglobin 7.7#L, Hematocrit 23L , Mean Corpuscular Volume 86, Mean Corpuscular Hemoglobin 28, Mean Corpuscular Hemoglobin Concent 33, Red Cell Distribution Width 20.1H, Platelet Count 17*L, Mean Platelet Volume 9.0 12/10/21 04:40: White Blood Count 18.0H, Red Blood Count 2.62L, Hemoglobin 7.3L, Hematocrit 22L, Mean Corpuscular Volume 85, Mean Corpuscular Hemoglobin 28, Mean Corpuscular Hemoglobin Concent 33, Red Cell Distribution Width 19.8H, Platelet Count 4*L, Mean Platelet Volume , Immature Granulocyte % (Auto) 17, Neutrophils (%) (Auto) 41L, Lymphocytes (%) (Auto) 16, Monocytes (%) (Auto) 27H, Eosinophils (%) (Auto) 0, Basophils (%) (Auto) 0, Neutrophils # (Auto) 7.3, Lymphocytes # (Auto) 2.9, Monocytes # (Auto) 4.8H, Eosinophils # (Auto) 0.0, Basophils # (Auto) 0.1, Immature Granulocyte # (Auto) 3.0H, Percent Immature Platelet Fraction 15.0H, Sodium Level 134L, Potassium Level 3.6, Chloride Level 103, Carbon Dioxide Level 21, Anion Gap 10, Blood Urea Nitrogen 10, Creatinine 1.31H, Estimat Glomerular Filtration Rate 65, BUN/Creatinine Ratio 8, Glucose Level 89, Calcium Level 7.4L , Corrected Calcium 8.8, Phosphorus Level 1.8L, Magnesium Level 1.8, Total Bilirubin 1.0, Aspartate Amino Transf (AST/SGOT) 30, Alanine Aminotransferase (ALT/SGPT) 25, Alkaline Phosphatase 182H, Total Protein 4.3L, Albumin 2.3L Microbiology 12/07/21 MRSA Screen - Final, Complete MRSA not isolated 12/06/21 Blood Culture - Preliminary, Resulted No growth 12/06/21 Urine Culture - Final, Complete NO GROWTH Assessment/Plan Assessment/Plan Assessment/Plan colitis-right colon sepsis AML thrombocytopenia anemia leukocytosis LUIS ENRIQUE cough hematuria Continue current abx, Zosyn was stopped yesterday and cefepime was started Slight distention about the same as yesterday, continue clear liquid diet, monitor for any worsening of abdominal pain or distention Fentanyl, morphine for pain control Continue IV fluids, coude catheter placed 12/07, has been started on Flomax by urology, monitor urinary output Received 1 unit of platelets yesterday, 2 Units of platelets given on 12/07 and 1 unit on 12/06, 2 units of pRBCs given 12/07. Continue to monitor platelet levels in addition to WBC and Hgb Taking Zofran PRN for nausea and Protonix for GI prophylaxis CXR on 12/08, according to radiology, showed no acute abnormalities in the chest. Abdominal CT done 12/06, according to radiology, showed slight inflammatory change involving the cecum, possibly colitis with no free air, free fluid, or bowel obstruction Being followed by heme/onc and urology He has been recommended palliative care due to AML, Prognosis may be poor. Patent likely not able to clear infection. DEMARIO MART DO 12/10/215: Subjective Time Seen by a Provider: 19:31 Subjective/Events-last exam Pt seen and examined, did not appear to be in any distress. He denied abominal pain and his only complaint was of nausea and he wanted something to help him sleep. Review of Systems General: No Chills, No Night Sweats; Fatigue Pulmonary: No Dyspnea; Cough Cardiovascular: No: Chest Pain, Palpitations Gastrointestinal: Nausea, Abdominal Pain; No: Vomiting Genitourinary: No Dysuria; Hematuria Objective Exam General Appearance: No Apparent Distress, Chronically ill HEENT: PERRL/EOMI Respiratory: Chest Non Tender, Normal Breath Sounds, No Accessory Muscle Use, No Respiratory Distress Cardiovascular: Regular Rate, Rhythm, No Murmur Gastrointestinal: non tender, soft, distended (slight) Assessment/Plan Assessment/Plan Assessment/Plan colitis-right colon sepsis AML thrombocytopenia anemia leukocytosis LUIS ENRIQUE cough hematuria Continue current abx, Zosyn was stopped yesterday and cefepime was started Slight distention about the same as yesterday, continue clear liquid diet, monitor for any worsening of abdominal pain or distention Fentanyl, morphine for pain control Continue IV fluids, coude catheter placed 12/07, has been started on Flomax by urology, monitor urinary output Received 1 unit of platelets yesterday, 2 Units of platelets given on 12/07 and 1 unit on 12/06, 2 units of pRBCs given 12/07. Continue to monitor platelet levels in addition to WBC and Hgb Taking Zofran PRN for nausea and Protonix for GI prophylaxis CXR on 12/08, according to radiology, showed no acute abnormalities in the chest. Abdominal CT done 12/06, according to radiology, showed slight inflammatory change involving the cecum, possibly colitis with no free air, free fluid, or bowel obstruction Being followed by heme/onc and urology He has been recommended palliative care due to AML, Prognosis may be poor. Patent likely not able to clear infection. Supervisory-Addendum Brief Verification & Attestation Participated in pt care: history, MDM, physical Personally performed: exam, history, MDM, supervision of care Care discussed with: Medical Student Procedures: n/a Verification and Attestation of Medical Student E/M Service A medical student performed and documented this service. I then reviewed and verified all information documented by the medical student and made modifica tions to such information, when appropriate. I personally performed a physical exam, medical decision making and then discussed any differences between the notes and made revisions as necessary to create one note. Demario Mart , 12/10/21 , 21:35 RENEE DEWITT DO 12/15/211933: Subjective Subjective/Events-last exam Seen by Dr. Mart Objective Exam General Appearance: Other (seen by dr. mart) Assessment/Plan Assessment/Plan Assessment/Plan seen by dr. mart Supervisory-Addendum Brief Verification & Attestation Participated in pt care: other (seen by other provider) Personally performed: other (seen by other provider) Care discussed with: other (seen by other provider) Procedures: other (seen by other provider) seen by other provider XANDER BAUER Dec 10, 2021 07:13 DEMARIO MART DO Dec 10, 2021 21:35 RENEE DEWITT DO Dec 15, 2021 19:34
--- NOTE | 2021-12-10 08:06 | Tele-ICU Progress Note ---
Subjective Date Seen by a Provider: Dec 10, 2021 Time Seen by a Provider: 08:05 Subjective/Events-last exam male presented to the emergency room with a complaint of nausea vomiting diarrhea. He speaks predominantly Mongolian. Apparently history obtained via target setter. He has a history of AML for which he received first and second line of chemotherapy at [facility] where he did not have a any significant response but he is supposed to be on a third line. He does not follow-up with his oncologist. He is wishing to go to [facility] and get therapy from there. Currently resting comfortably. His hemoglobin is low and platelets are low. Platelet count is 4K. Awaiting for platelet transfusion. Apparently platelets currently are not available at this institution and awaiting to arrive from other places. Sepsis Event Evaluation Height, Weight, BMI Height: '" Weight: lbs. oz. kg; 28.61 BMI Method: Focused Exam Lactate Level 12/07/21 08:38: Lactic Acid Level 2.64*H 12/07/21 10:50: Lactic Acid Level 2.00 Exam Exam Patient acknowledged, consented, and participated in this virtual visit which was conducted using real time audio/video Vital Signs Date Time Temp Pulse Resp B/P (MAP) Pulse Ox O2 Delivery O2 Flow Rate FiO2 12/10/21 07:00 98 20 122/75 (91) 91 Nasal Cannula 2.00 12/10/21 07:00 105 12/10/21 06:00 108 15 126/77 (93) 97 Nasal Cannula 2.00 12/10/21 05:00 101 18 131/91 (104) 96 Nasal Cannula 2.00 12/10/21 04:00 93 Room Air 12/10/21 04:00 95 21 116/77 (90) 95 Nasal Cannula 2.00 12/10/21 03:00 99 20 109/69 (82) 93 Nasal Cannula 2.00 12/10/21 02:00 98 20 125/73 (90) 92 Nasal Cannula 2.00 12/10/21 01:00 98 20 131/78 (95) 93 Nasal Cannula 2.00 12/10/21 01:00 98 12/10/21 00:00 134 14 112/77 (89) 98 Nasal Cannula 2.00 12/10/21 00:00 93 Room Air 12/09/21 23:00 101 20 122/74 (90) 92 Nasal Cannula 2.00 12/09/21 22:00 105 22 134/77 (96) 92 Nasal Cannula 2.00 12/09/21 21:00 103 21 125/86 (99) 96 Nasal Cannula 2.00 12/09/21 20:00 99 18 129/86 (100) 96 Nasal Cannula 2.00 12/09/21 20:00 93 Room Air 12/09/21 19:23 37.5 12/09/21 19:00 101 15 150/95 (113) 98 Nasal Cannula 2.00 12/09/21 19:00 101 12/09/21 18:00 99 20 134/82 (99) 97 Nasal Cannula 2.00 12/09/21 17:00 98 19 124/85 (98) 98 Nasal Cannula 2.00 12/09/21 16:00 93 Room Air 12/09/21 16:00 95 16 118/85 (96) 97 Nasal Cannula 2.00 12/09/21 15:32 36.5 12/09/21 15:00 96 15 140/86 (104) 98 Nasal Cannula 2.00 12/09/21 14:00 101 11 144/90 (108) 99 Nasal Cannula 2.00 12/09/21 13:00 96 12/09/21 13:00 96 22 130/92 (105) 97 Nasal Cannula 2.00 12/09/21 12:00 93 Room Air 12/09/21 12:00 101 15 115/73 (87) 97 Nasal Cannula 2.00 12/09/21 11:35 37.9 12/09/21 11:00 98 28 118/81 (93) 97 Nasal Cannula 2.00 12/09/21 10:45 37.7 100 22 106/73 98 12/09/21 10:28 37.9 101 14 116/78 98 12/09/21 10:24 37.7 12/09/21 10:13 37.7 107 24 110/73 98 12/09/21 10:00 94 18 106/73 (84) 93 Nasal Cannula 2.00 12/09/21 09:00 106 25 112/71 (85) 95 Nasal Cannula 2.00 12/09/21 08:41 38.0 I & O 12/10/21 07:00 Intake Total 2938 ml Output Total 2545 ml Balance 393 ml Height & Weight Height: '" Weight: lbs. oz. kg; 28.61 BMI Method: General Appearance: No Apparent Distress, Chronically ill HEENT: PERRL/EOMI; No Photophobia Neck: Non Tender, Supple Respiratory: Chest Non Tender, No Accessory Muscle Use, No Respiratory Distress Cardiovascular: Regular Rate, Rhythm, No JVD, Normal Peripheral Pulses Capillary Refill: Less Than 3 Seconds Gastrointestinal: non tender, soft, distended (slight) Extremity: Normal Inspection (left upper extremity scars), Non Tender, No Calf Tenderness, No Pedal Edema Neurologic/Psychiatric: Alert, Oriented x3, Normal Mood/Affect Skin: Normal Color, Warm/Dry Lymphatic: No Adenopathy Other comments pe per rn Results Lab Laboratory Tests 12/09/21 05:26 12/09/21 14:37 12/10/21 04:40 Assessment/Plan Assessment/Plan 1. Acute myeloblastic pneumonia. Refractory to first and second line of treatment currently has a severe anemia and thrombocytopenia. 2. Acute colitis on treatment 3. Nausea and vomiting improving. 4. Poor nutritional status. Recommendations 1. Transfuse platelets if available 2. Awaiting further input from oncology service 3. Any antibiotic therapy per primary care physician. 4. SCDs for DVT prophylaxis. 5. Overall prognosis is very poor. Critical Care: Critically Ill Patient Time spent with patient (mins): 20 WICHO RIVERS MD Dec 10, 2021 08:05
[2021-12-10] MEDS: PANTOPRAZOLE 40 MG (PROTONIX) VIAL IV SCH (08:07)
[2021-12-10] MEDS: NOREPINEPHRINE 8 MG/250 ML 250 ML IV SCH ×2 (08:11→20:51)
[2021-12-10] MEDS ORDERED: HOLD METFORMIN - RECEIVED CONTRAST 20 ML VIAL IV SCH (09:15)
[2021-12-10] MEDS ORDERED: IOHEXOL 350 MG/ML 100 ML (OMNIPAQUE 350) VIAL IV ONE (09:15)
[2021-12-10] MEDS ORDERED: NS 100 ML (IVPB) BAG IV ONE (09:15)
--- NOTE | 2021-12-10 09:17 | Progress Note - Hospitalist ---
Subjective HPI/CC On Admission Date Seen by Provider: Dec 10, 2021 Time Seen by Provider: 08:00 Patient is a 51-year-old man who presented to the emergency department due to diarrhea, nausea, vomiting. Dye Can Operator line was used to conduct interview. He reports his symptoms started yesterday. He gives inconsistent answers to multiple questions. He states that he has leukemia but he does not have a cancer doctor and he has only ever been treated by the emergency room. 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 Reviewing records states that he does follow with [facility] and he did not have adequate response to therapy and is on third line treatment. He was informed of palliative nature of treatment by both [facility] and a cancer doctor here Dr. Pan. He did have worsening symptoms this morning and developed a fever of 39.3. He became hypotensive with this as well and was transferred to the ICU. Subjective/Events-last exam Pt reports feeling better today but still having right sided flank pain. No other complaints. We discussed that he has improved from the infection standpoint but that his labs reflecting his cancer and still very poor. He states he thought that if the infection improved his platelets would too. We discussed again that his platelets are low because of his cancer and that his oncologists have stated there are no further treatment options for his cancer. He states he understands this and again asks about getting to [facility]. I explicitly told him in the presence of the nurse that he would not be medically safe to travel at this time and is high risk for complications given unknown impact of altitude and pressure changes with profound thrombocytopenia. He states that if he discharges he will travel if he feels up to it despite my dire warning about the potential impacts to his health. Language line used. Focused Exam Lactate Level Objective Exam Vital Signs Vital Signs Date Time Temp Pulse Resp B/P (MAP) Pulse Ox O2 Delivery O2 Flow Rate FiO2 12/10/21 13:00 107 12/10/21 12:00 10 148/113 (125) 97 Nasal Cannula 2.00 12/10/21 12:00 36.3 Capillary Refill : Less Than 3 Seconds General Appearance: No Apparent Distress, Chronically ill Respiratory: Lungs Clear, No Respiratory Distress Cardiovascular: Regular Rate, Rhythm, No Murmur Gastrointestinal: Normal Bowel Sounds, Soft, Distended (mild); No Guarding, No Rebound Genital/Rectal: Other (catheter in place with blood tinged urine) Neurologic/Psychiatric: Alert, Oriented x3 Results/Procedures Lab Laboratory Tests 12/10/21 04:40 Patient resulted labs reviewed. 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 His brother is at bedside and states that patient is adamant he will return to [facility]. I again explained to the brother that this is very unsafe and could likely end in the patient's in route to [facility]. Brother states that he understands this but that Narayan is insistent to return to [facility]. We discussed the safest way to do this but again that it is not medically recommended and would be incredibly dangerous. At the end of our c onversation patient's brother acknowledges this risk with travel and states he will try to talk his brother into staying here. Informed him that I would recommend discharge with hospice at any time. Diagnosis/Problems Diagnosis/Problems (1) AML (acute myeloblastic leukemia) Status: Acute Qualifiers: Leukemia Active/Remission status: without remission Qualified Codes: C92.00 - Acute myeloblastic leukemia, not having achieved remission (2) Thrombocytopenia Status: Acute (3) Colitis Status: Acute (4) Nausea vomiting and diarrhea Status: Acute (5) Poor prognosis Status: Acute ERIK RAZO MD Dec 10, 2021 09:16
--- NOTE | 2021-12-10 09:56 | Diagnostic Imaging Report ---
PROCEDURE: CT abdomen and pelvis with contrast. TECHNIQUE: Multiple contiguous axial images were obtained through the abdomen and pelvis after administration of intravenous contrast. Auto Exposure Controls were utilized during the CT exam to meet ALARA standards for radiation dose reduction. All CT scans use one or more of the following dose optimizing techniques: automated exposure control, MA and/or KvP adjustment based on patient size and exam type or iterative reconstruction. INDICATION: Abdominal pain and colitis. Comparison is made with recent CT abdomen and pelvis study from 12/06/2021. Imaging through the lung bases do show some subsegmental atelectasis in the right lower lobe. There are trace bilateral pleural effusions. No discrete liver mass is detected. Gallbladder is unremarkable. There is no biliary ductal dilatation. Pancreas and spleen are unremarkable. No adrenal mass is detected. A right kidney does show mild hydroureteronephrosis. There is some inflammatory stranding at the level of the renal pelvis as well as the proximal half of the right ureter. No obstructing calculus is identified. Left kidney does show some heterogeneous low density in the anterior aspect of the mid left kidney without evidence of discrete mass. This could represent focal nephritis. Aorta is nonaneurysmal. There appears to be some free fluid in the lower abdomen and pelvis but no well-formed fluid collection or free air is seen. Bladder contains a Cardenas catheter. Prostate is unremarkable. Small and large bowel loops are normal caliber. No obstruction. IMPRESSION: 1. Trace bilateral pleural effusions with right basilar subsegmental atelectasis. 2. Mild right-sided hydroureteronephrosis with peripelvic and periureteral inflammatory stranding. This could be on an infectious/inflammatory basis. There is also ill-defined low density within the left kidney perhaps on the basis of focal nephritis. 3. Small amount of free fluid in abdomen and pelvis. 4. No other significant abnormality is detected. Dictated by: Dictated on workstation # [id number]
--- NOTE | 2021-12-10 10:08 | Progress Note ---
Progress Note Assessment/Plan Date Seen by Provider: Dec 10, 2021 Time Seen by Provider: 09:56 Events since last exam He got 2 units of RBC and one unit of Plt. Pt is getting better in terms of colitis and off pressors. Hemodynamic stable now. He does not want to go to hospice even though [facility] has arranged this last month. He is thinking of going back to his [facility]. IMP: 1. Primary refractory AML with anemia and thrombocytopenia. 2. Colitis, treated with IV antibiotics and improved. Rec: 1. We do not have anything to offer for his AML at this facility. 2. Once he knows the flight date and time to his country, we can arrange one unit of Plt transfusion if his Plt is <6 and one unit of RBC transfusion if his Hb is <7 to help him though the travel back to his home country. He needs to take this very short window time to get on the flight [place]. 3. If he wants to stay here, then hospice care here. Assessment/Plan colitis-right colon sepsis AML thrombocytopenia anemia leukocytosis LUIS ENRIQUE cough hematuria Continue current abx, Zosyn was stopped yesterday and cefepime was started Slight distention about the same as yesterday, continue clear liquid diet, monitor for any worsening of abdominal pain or distention Fentanyl, morphine for pain control Continue IV fluids, coude catheter placed 12/07, has been started on Flomax by urology, monitor urinary output Received 1 unit of platelets yesterday, 2 Units of platelets given on 12/07 and 1 unit on 12/06, 2 units of pRBCs given 12/07. Continue to monitor platelet levels in addition to WBC and Hgb Taking Zofran PRN for nausea and Protonix for GI prophylaxis CXR on 12/08, according to radiology, showed no acute abnormalities in the chest. Abdominal CT done 12/06, according to radiology, showed slight inflammatory change involving the cecum, possibly colitis with no free air, free fluid, or bowel obstruction Being followed by heme/onc and urology He has been recommended palliative care due to AML, Prognosis may be poor. Patent likely not able to clear infection. Vitals Last set of Vitals Signs Vital Signs Date Time Temp Pulse Resp B/P (MAP) Pulse Ox O2 Delivery O2 Flow Rate FiO2 12/10/21 08:15 98 Nasal Cannula 12/10/21 08:11 112 151/81 12/10/21 08:00 37.5 12/10/21 07:00 20 2.00 I&O I&O Intake and Output 12/10/21 00:00 Intake Total 2588 ml Output Total 2695 ml Balance -107 ml Intake Oral 1370 ml IV Total 1200 ml Other 18 ml Output Urine Total 2695 ml # Bowel Movements 6 Labs Laboratory Tests 12/09/21 14:37: White Blood Count 21.5H, Red Blood Count 2.72L, Hemoglobin 7.7#L, Hematocrit 23L , Mean Corpuscular Volume 86, Mean Corpuscular Hemoglobin 28, Mean Corpuscular Hemoglobin Concent 33, Red Cell Distribution Width 20.1H, Platelet Count 17*L, Mean Platelet Volume 9.0 12/10/21 04:40: White Blood Count 18.0H, Red Blood Count 2.62L, Hemoglobin 7.3L, Hematocrit 22L, Mean Corpuscular Volume 85, Mean Corpuscular Hemoglobin 28, Mean Corpuscular Hemoglobin Concent 33, Red Cell Distribution Width 19.8H, Platelet Count 4*L, Mean Platelet Volume , Immature Granulocyte % (Auto) 17, Neutrophils (%) (Auto) 41L, Lymphocytes (%) (Auto) 16, Monocytes (%) (Auto) 27H, Eosinophils (%) (Auto) 0, Basophils (%) (Auto) 0, Neutrophils # (Auto) 7.3, Lymphocytes # (Auto) 2.9, Monocytes # (Auto) 4.8H, Eosinophils # (Auto) 0.0, Basophils # (Auto) 0.1, Immature Granulocyte # (Auto) 3.0H, Percent Immature Platelet Fraction 15.0H, Sodium Level 134L, Potassium Level 3.6, Chloride Level 103, Carbon Dioxide Level 21, Anion Gap 10, Blood Urea Nitrogen 10, Creatinine 1.31H, Estimat Glomerular Filtration Rate 65, BUN/Creatinine Ratio 8, Glucose Level 89, Calcium Level 7.4L , Corrected Calcium 8.8, Phosphorus Level 1.8L, Magnesium Level 1.8, Total Bilirubin 1.0, Aspartate Amino Transf (AST/SGOT) 30, Alanine Aminotransferase (ALT/SGPT) 25, Alkaline Phosphatase 182H, Total Protein 4.3L, Albumin 2.3L Microbiology 12/07/21 MRSA Screen - Final, Complete MRSA not isolated 12/06/21 Blood Culture - Preliminary, Resulted No growth 12/06/21 Urine Culture - Final, Complete NO GROWTH Focused Exam Lactate Level 12/07/21 10:50: Lactic Acid Level 2.00 ANATOLIY ROBERTO MD Dec 10, 2021 10:08
[2021-12-10] MEDS: FLUTICASONE NASAL SPRAY (FLONASE) 16 GM BTL NS SCH (10:49)
[2021-12-10] MEDS: CALCIUM CARBONATE 500 MG (TUMS) TAB.CHEW PO PRN (10:53)
--- NOTE | 2021-12-10 11:34 | Progress Note - Urology ---
Progress Note-Urology Progress Notes/Assess & Plan Progress/Assessment & Plan MAY DC OWENS WHEN NOT NEEDED MEDICALLY AND PATIENT AMBULATING WELL Final Diagnosis GROSS HEMATURIA MINNA SANTIZO MD Dec 10, 2021 11:34
[2021-12-10] MEDS: TAMSULOSIN 0.4 MG (FLOMAX) CAP PO SCH (17:54)
[2021-12-10] MEDS ORDERED: SALINE NASAL SPRAY (OCEAN) 45 ML BTL PRN (18:15)
[2021-12-11] VITALS: BP 121/75
[2021-12-11] MEDS: LACTATED RINGERS 1,000 ML IV SCH ×4 (00:13→17:26)
[2021-12-11 03:56] VITALS: BP 131/73
[2021-12-11] MEDS: CEFEPIME INJECTION 1,000 MG in NS (IVPB) 50 ML IV SCH ×3 (05:44→17:17)
[2021-12-11 05:59] LABS: EOSINOPHILS % (AUTO) 0 % (0-10); HEMATOCRIT 21 % (40-54)
[2021-12-11 06:01] LABS: BASOPHILS # (AUTO) 0.1 10^3/uL (0.0-0.1); BASOPHILS % (AUTO) 0 % (0-10); LYMPHOCYTES % (AUTO) 15 % (12-44); MEAN CORPUSCULAR HEMOGLOBIN 28 pg (25-34); MEAN CORPUSCULAR HGB CONC 32 g/dL (32-36); MEAN CORPUSCULAR VOLUME 87 fL (80-99); MONOCYTES # (AUTO) 3.7 10^3/uL (0.0-1.0); MONOCYTES % (AUTO) 18 % (0-12); NEUTROPHILS # (AUTO) 7.5 10^3/uL (1.8-7.8); NEUTROPHILS % (AUTO) 37 % (42-75); WHITE BLOOD COUNT 20.5 10^3/uL (4.3-11.0)
[2021-12-11 06:09] LABS: HEMOGLOBIN 6.8 g/dL (13.3-17.7); PLATELET COUNT 2 10^3/uL (130-400)
[2021-12-11] MEDS: metroNIDAZOLE 500MG/100ML IVPB 100 ML IV SCH ×3 (06:19→22:02)
[2021-12-11 06:29] LABS: ALBUMIN 2.4 GM/DL (3.2-4.5); CALCIUM 7.3 MG/DL (8.5-10.1); CREATININE SERUM 1.2 MG/DL (0.60-1.30); MAGNESIUM 1.7 MG/DL (1.6-2.4); PHOSPHORUS 2.1 MG/DL (2.3-4.7); POTASSIUM 3.5 MMOL/L (3.6-5.0); TOTAL PROTEIN 4.4 GM/DL (6.4-8.2)
[2021-12-11] MEDS: ACETAMINOPHEN 325 MG TABLET PO PRN ×2 (06:44→22:01)
[2021-12-11] MEDS: POTASSIUM CL 10MEQ/50ML IVPB 50 ML IV SCH (06:46)
[2021-12-11] MEDS ORDERED: KCL 20 MEQ TAB (K-DUR) PO NR (07:00)
--- NOTE | 2021-12-11 07:13 | Progress Note - Surgery ---
XANDER BAUER 12/11/21 0712: Subjective Date Seen by a Provider: Dec 11, 2021 Time Seen by a Provider: 06:31 Subjective/Events-last exam Pt was sitting up and alert this morning when I entered the room. He denies having any abdominal pain or worsening distention. Pt does state that he has been having episodes of epistaxis and hemoptysis. Gross hematuria was seen in catheter collection bag this morning. Denies having any other concerns when asked. Review of Systems General: No Chills, No Night Sweats HEENT: No Head Aches, No Visual Changes Pulmonary: Cough, Other (hemoptysis ) Cardiovascular: No: Chest Pain, Palpitations Gastrointestinal: No: Nausea, Vomiting, Abdominal Pain Genitourinary: No Dysuria; Hematuria Musculoskeletal: No: neck pain, back pain Neurological: No: Weakness, Numbness Objective Exam Vital Signs Date Time Temp Pulse Resp B/P (MAP) Pulse Ox O2 Delivery O2 Flow Rate FiO2 12/11/21 06:44 38.3 12/11/21 06:44 38.3 12/11/21 03:56 37.8 115 20 131/73 (92) 94 Room Air 12/11/21 00:59 37.6 12/11/21 00:00 38.5 110 19 121/75 (90) 96 Room Air 12/10/21 20:45 Nasal Cannula 12/10/21 19:35 37.7 105 20 127/96 (106) 96 Room Air 12/10/21 15:46 36.9 101 20 135/72 (93) 96 Room Air 12/10/21 13:00 36.3 107 10 148/113 (125) 97 Nasal Cannula 2.00 2.00 12/10/21 13:00 107 12/10/21 12:00 112 10 148/113 (125) 97 Nasal Cannula 2.00 12/10/21 12:00 36.3 12/10/21 11:00 104 23 128/79 (95) 95 Nasal Cannula 2.00 12/10/21 10:00 107 17 134/74 (94) 96 Nasal Cannula 2.00 12/10/21 09:00 110 18 133/90 (104) 96 Nasal Cannula 2.00 12/10/21 08:15 98 Nasal Cannula 12/10/21 08:11 112 151/81 12/10/21 08:00 37.5 3/10/22 08:00 108 12 151/81 (104) 97 Nasal Cannula 2.00 I & O 12/11/21 07:00 Intake Total 2075 ml Output Total 3196 ml Balance -1121 ml Capillary Refill : Less Than 3 Seconds General Appearance: No Apparent Distress, Chronically ill Neck: Non Tender, Supple Respiratory: Chest Non Tender, No Accessory Muscle Use, No Respiratory Distress, Wheezing (diffuse ) Cardiovascular: No Murmur, Normal Peripheral Pulses, Tachycardia Gastrointestinal: non tender, distended (slightly increased from yesterday), guarding Extremity: Normal Inspection (left upper extremity scars), Non Tender, No Calf Tenderness, No Pedal Edema Neurologic/Psychiatric: Alert, Oriented x3 Skin: Normal Color, Warm/Dry Lymphatic: No Adenopathy Results Lab Laboratory Tests 12/10/21 12:18: Lab Scanned Report Transfusion Reaction Form 12/11/21 05:46: White Blood Count 20.5H, Red Blood Count 2.46L, Hemoglobin 6.8*L, Hematocrit 21L , Mean Corpuscular Volume 87, Mean Corpuscular Hemoglobin 28, Mean Corpuscular Hemoglobin Concent 32, Red Cell Distribution Width 20.3H, Platelet Count 2*L, Mean Platelet Volume , Immature Granulocyte % (Auto) 30, Neutrophils (%) (Auto) 37L, Lymphocytes (%) (Auto) 15, Monocytes (%) (Auto) 18H, Eosinophils (%) (Auto) 0, Basophils (%) (Auto) 0, Neutrophils # (Auto) 7.5, Lymphocytes # (Auto) 3.0, Monocytes # (Auto) 3.7H, Eosinophils # (Auto) 0.0, Basophils # (Auto) 0.1, Immature Granulocyte # (Auto) 6.2H, Percent Immature Platelet Fraction 9.1H, Sodium Level 133L, Potassium Level 3.5L, Chloride Level 102, Carbon Dioxide Level 20L, Anion Gap 11, Blood Urea Nitrogen 10, Creatinine 1.20, Estimat Glomerular Filtration Rate 73, BUN/Creatinine Ratio 8, Glucose Level 92, Calcium Level 7.3L, Corrected Calcium 8.6, Phosphorus Level 2.1L, Magnesium Level 1.7, Total Bilirubin 1.0, Aspartate Amino Transf (AST/SGOT) 61H, Alanine Aminotransferase (ALT/SGPT) 34, Alkaline Phosphatase 289H, Total Protein 4.4L, Albumin 2.4L Microbiology 12/07/21 MRSA Screen - Final, Complete MRSA not isolated 12/06/21 Blood Culture - Preliminary, Resulted No growth 12/06/21 Urine Culture - Final, Complete NO GROWTH Assessment/Plan Assessment/Plan Assessment/Plan colitis-right colon sepsis AML thrombocytopenia anemia leukocytosis LUIS ENRIQUE cough hematuria Continue current abx Slight distention slightly increased from yesterday, continue clear liquid diet, monitor for any worsening of abdominal pain or distention Fentanyl, morphine for pain control Continue IV fluids, coude catheter placed 12/07, has been started on Flomax by urology, monitor urinary output Received 1 unit of platelets 12/09, 2 Units of platelets given on 12/07 and 1 unit on 12/06, 2 units of pRBCs given 12/07. Continue to monitor platelet levels in addition to WBC and Hgb Taking Zofran PRN for nausea and Protonix for GI prophylaxis CXR on 12/08, according to radiology, showed no acute abnormalities in the chest. Abdominal CT done yesterday, according to radiology, showed Trace bilateral pleural effusions with right basilar subsegmental atelectasis, mild right-sided hydroureteronephrosis with peripelvic and periureteral inflammatory stranding, and small amount of free fluid in abdomen and pelvis. Being followed by heme/onc and urology He has been recommended palliative care due to AML. Pt is still wanting to try to get to [facility]. Prognosis may be poor. Patent likely not able to clear infection. RENEE BIGGS DO 12/11/21 1444: Subjective Subjective/Events-last exam Sitting up in bed. Not having any abdominal pain. Tolerating diet. Patient with bloody nose and hematuria. Having fevers. No n/v sweats chills shortness of breath or chest pain. Objective Exam General Appearance: No Apparent Distress, Chronically ill HEENT: Other (bloood in nares) Neck: Non Tender, Supple Respiratory: Chest Non Tender, No Accessory Muscle Use, No Respiratory Distress Cardiovascular: No JVD, Tachycardia Gastrointestinal: non tender, distended (minimal); No guarding Extremity: Non Tender, No Calf Tenderness Neurologic/Psychiatric: Alert, Oriented x3 Skin: Normal Color, Warm/Dry Lymphatic: No Adenopathy Assessment/Plan Assessment/Plan Assessment/Plan colitis-right colon sepsis AML thrombocytopenia anemia leukocytosis LUIS ENRIQUE cough hematuria Continue current abx- being recultured due to fever and increasing wbc diet as tolerates as ct scan appears improved from colitis standpoint and he is not having abdominal pain. Fentanyl, morphine for pain control Continue IV fluids, coude catheter placed 12/07, has been started on Flomax by urology, monitor urinary output Received 1 unit of platelets 12/09, 2 Units of platelets given on 12/07 and 1 unit on 12/06, 2 units of pRBCs given 12/07. Continue to monitor platelet levels in addition to WBC and Hgb Taking Zofran PRN for nausea and Protonix for GI prophylaxis CXR on 12/08, according to radiology, showed no acute abnormalities in the chest. Abdominal CT done yesterday, according to radiology, showed Trace bilateral pleural effusions with right basilar subsegmental atelectasis, mild right-sided hydroureteronephrosis with peripelvic and periureteral inflammatory stranding, and small amount of free fluid in abdomen and pelvis. Being followed by heme/onc and urology He has been recommended palliative care due to AML. Pt is still wanting to try to get to [facility]. Prognosis may be poor. Patent likely not able to clear infection. Supervisory-Addendum Brief Verification & Attestation Participated in pt care: history, MDM, physical Personally performed: exam, history, MDM, supervision of care Care discussed with: Medical Student Procedures: n/a Results interpretation: Verified all documentation Verification and Attestation of Medical Student E/M Service A medical student performed and documented this service in my presence. I reviewed and verified all information documented by the medical student and made modifications to such information, when appropriate. I personally performed the physical exam and medical decision making. Renee Biggs, Dec 11, 2021,14:44 XANDER BAUER Dec 11, 2021 07:12 RENEE BIGGS DO Dec 11, 2021 14:44
[2021-12-11] MEDS: KCL 20 MEQ TAB (K-DUR) PO SCH (07:18)
[2021-12-11] MEDS: MAGNESIUM 1 GM/100 ML IVPB 100 ML IV SCH ×3 (07:19→09:06)
[2021-12-11 08:04] VITALS: BP 138/80
[2021-12-11] MEDS: PANTOPRAZOLE 40 MG (PROTONIX) VIAL IV SCH (09:05)
[2021-12-11] MEDS: FLUTICASONE NASAL SPRAY (FLONASE) 16 GM BTL NS SCH (09:06)
[2021-12-11 11:32] VITALS: BP 134/87
--- NOTE | 2021-12-11 11:47 | Progress Note - Hospitalist ---
Subjective HPI/CC On Admission Date Seen by Provider: Dec 11, 2021 Time Seen by Provider: 11:35 Patient is a 51-year-old man who presented to the emergency department due to diarrhea, nausea, vomiting. Heel Breaster line was used to conduct interview. He reports his symptoms started yesterday. He gives inconsistent answers to multiple questions. He states that he has leukemia but he does not have a cancer doctor and he has only ever been treated by the emergency room. 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 Reviewing records states that he does follow with [facility] and he did not have adequate response to therapy and is on third line treatment. He was informed of palliative nature of treatment by both [facility] and a cancer doctor here Dr. Pan. He did have worsening symptoms this morning and developed a fever of 39.3. He became hypotensive with this as well and was transferred to the ICU. Subjective/Events-last exam Pt sitting up in chair. Gauze in nose for bloody nose. Friends at bedside and patient requests that they interpret for him instead of using the language line. Discussed recurrent fever and need for repeat cultures. Objective Exam Vital Signs Vital Signs Date Time Temp Pulse Resp B/P (MAP) Pulse Ox O2 Delivery O2 Flow Rate FiO2 12/11/21 08:04 36.6 103 20 138/80 (99) 94 Room Air 12/10/21 13:00 2.00 2.00 Capillary Refill : Less Than 3 Seconds General Appearance: No Apparent Distress, Chronically ill HEENT: Other (gauze in right nare, blood tinged) Respiratory: Lungs Clear, No Respiratory Distress Cardiovascular: Regular Rate, Rhythm, No Murmur Neurologic/Psychiatric: Alert, Oriented x3 Skin: Normal Color, Warm/Dry Results/Procedures Lab Laboratory Tests 12/11/21 05:46 Patient resulted labs reviewed. Imaging: Reviewed Imaging Report Assessment/Plan Assessment and Plan Assess & Plan/Chief Complaint Septic Shock, improving Some components of inflammatory response may be due to leukemia given minimal findings on CT abd Repeat CT abd/pelvis showed no collection but hydronephrosis noted- ford catheter draining well Urine culture with no growth, CXR negative, blood cultures NGTD Continue Zosyn and Flagyl Surgery consulted, appreciate recs eiCU consulted, appreciate recs Repeat cultures due to fever and increasing WBC AML, refractory POA Thrombocytopenia, anemia Hematuria Appears to have refractory AML Persistent thrombocytopenia- management per Dr Demi Simms consulted, appreciate assistance Dr Duff consulted due to hematuria, appreciate assistance Palliative Care consulted, appreciate recs DVT ppx: SCDs only due to thrombocytopenia Critical Care Critically Ill Patient Diagnosis/Problems Diagnosis/Problems (1) AML (acute myeloblastic leukemia) Status: Acute Qualifiers: Leukemia Active/Remission status: without remission Qualified Codes: C92.00 - Acute myeloblastic leukemia, not having achieved remission (2) Thrombocytopenia Status: Acute (3) Colitis Status: Acute (4) Nausea vomiting and diarrhea Status: Acute (5) Poor prognosis Status: Acute ERIK RAZO MD Dec 11, 2021 11:47
--- NOTE | 2021-12-11 11:55 | Diagnostic Imaging Report ---
CLINICAL INDICATION: Patient with fever and difficulty breathing. EXAM: Portable chest x-ray upright view. COMPARISON: Chest x-ray dated 12/07/2021. FINDINGS: Interval placement right PICC line with tip in the distal superior vena cava region. Patient slightly rotated on exam. There is curvilinear discoid atelectasis left lung base. There is mild groundglass opacification involving left lung base which may represent atelectasis and/or infiltrate. There is no definite pleural effusion or pneumothorax. Pulmonary vasculature and cardiac silhouette within normal limits. Bones show no significant abnormality. IMPRESSION: 1: There is mild left basilar atelectasis, but superimposed infiltrate cannot be completely excluded. 2: Interval placement of right PICC line in good position, as described above. Dictated by: Dictated on workstation # [id number]
[2021-12-11 14:48] LABS: BILIRUBIN,URINE NEGATIVE (NEGATIVE); CLARITY,URINE CLEAR; COLOR,URINE RED; GLUCOSE, URINE (UA) NEGATIVE (NEGATIVE); KETONES,URINE NEGATIVE (NEGATIVE); LEUKOCYTE ESTERASE ,URINE TRACE (NEGATIVE); NITRITE,URINE POSITIVE (NEGATIVE); PROTEIN,URINE 2+ (NEGATIVE)
[2021-12-11 15:00] LABS: BACTERIA,URINE NEGATIVE /HPF; RBC,URINE TNTC /HPF; WBC,URINE 0-2 /HPF
[2021-12-11 15:59] VITALS: BP 158/92
[2021-12-11] MEDS: TAMSULOSIN 0.4 MG (FLOMAX) CAP PO SCH (17:16)
[2021-12-11 19:30] VITALS: BP 137/90
[2021-12-12] VITALS: BP 143/67
[2021-12-12] MEDS: CEFEPIME INJECTION 1,000 MG in NS (IVPB) 50 ML IV SCH ×2 (00:33→06:57)
[2021-12-12] MEDS: LACTATED RINGERS 1,000 ML IV SCH ×2 (00:33→09:22)
[2021-12-12 04:00] VITALS: BP 150/74
[2021-12-12] MEDS: metroNIDAZOLE 500MG/100ML IVPB 100 ML IV SCH (05:32)
[2021-12-12 05:48] LABS: EOSINOPHILS % (AUTO) 0 % (0-10)
[2021-12-12 05:50] LABS: BASOPHILS # (AUTO) 0.2 10^3/uL (0.0-0.1); BASOPHILS % (AUTO) 1 % (0-10); LYMPHOCYTES # (AUTO) 3.3 10^3/uL (1.0-4.0); LYMPHOCYTES % (AUTO) 14 % (12-44); MEAN CORPUSCULAR HEMOGLOBIN 28 pg (25-34); MEAN CORPUSCULAR HGB CONC 32 g/dL (32-36); MEAN CORPUSCULAR VOLUME 88 fL (80-99); MONOCYTES % (AUTO) 21 % (0-12); NEUTROPHILS # (AUTO) 11.9 10^3/uL (1.8-7.8); NEUTROPHILS % (AUTO) 49 % (42-75); WHITE BLOOD COUNT 24.3 10^3/uL (4.3-11.0)
[2021-12-12 05:57] LABS: HEMATOCRIT 20 % (40-54); HEMOGLOBIN 6.3 g/dL (13.3-17.7); PLATELET COUNT 2 10^3/uL (130-400)
[2021-12-12 06:27] LABS: ALBUMIN 2.4 GM/DL (3.2-4.5); CALCIUM 7.3 MG/DL (8.5-10.1); CREATININE SERUM 1.1 MG/DL (0.60-1.30); PHOSPHORUS 2.6 MG/DL (2.3-4.7); POTASSIUM 3.8 MMOL/L (3.6-5.0); TOTAL PROTEIN 4.4 GM/DL (6.4-8.2)
[2021-12-12] MEDS: POTASSIUM CL 10MEQ/50ML IVPB 50 ML IV SCH (06:28)
[2021-12-12] MEDS: KCL 20 MEQ TAB (K-DUR) PO SCH (06:29)
[2021-12-12] MEDS: MAGNESIUM 1 GM/100 ML IVPB 100 ML IV SCH (06:29)
[2021-12-12 08:01] VITALS: BP 112/72
--- NOTE | 2021-12-12 08:12 | Progress Note - Surgery ---
XANDER BAUER 12/12/21 0812: Subjective Date Seen by a Provider: Dec 12, 2021 Time Seen by a Provider: 07:26 Subjective/Events-last exam Pt is continuing to have epistaxis, hematuria, and hemoptysis. The episodes of epistaxis seem to be worsening and becoming more frequent. Pt is complaining of diffuse arm and leg pain this morning and was tender to palpitation in those areas. He was more fatigued this morning than yesterday. Denies having any abdominal pain, nausea, or vomiting. Review of Systems General: No Chills, No Night Sweats; Fatigue HEENT: No Visual Changes, No Eye Pain; Other (epistaxis) Pulmonary: Cough, Other (hemoptsis) Cardiovascular: No: Chest Pain, Palpitations Gastrointestinal: No: Nausea, Vomiting, Abdominal Pain Genitourinary: No Frequency; Hematuria Musculoskeletal: arm pain, leg pain Neurological: No: Weakness, Numbness Objective Exam Vital Signs Date Time Temp Pulse Resp B/P (MAP) Pulse Ox O2 Delivery O2 Flow Rate FiO2 12/12/21 08:01 38.0 120 22 112/72 (85) 94 Room Air 12/12/21 04:00 37.5 98 22 150/74 (99) 95 Room Air 12/12/21 00:00 36.2 105 21 143/67 (92) 95 Room Air 12/11/21 22:01 37.8 12/11/21 20:00 Room Air 12/11/21 19:30 37.8 107 24 137/90 (106) 96 Room Air 12/11/21 15:59 37.0 96 20 158/92 (114) 98 Room Air 12/11/21 11:32 36.5 104 22 134/87 (103) 97 Room Air I & O 12/12/21 07:00 Intake Total 1770 ml Output Total 3500 ml Balance -1730 ml Capillary Refill : Less Than 3 Seconds General Appearance: No Apparent Distress, Chronically ill HEENT: PERRL/EOMI; No Photophobia; Other (blood in nares, worse in left) Neck: Non Tender, Supple Respiratory: Chest Non Tender, No Accessory Muscle Use, No Respiratory Distress Cardiovascular: No JVD, Normal Peripheral Pulses, Tachycardia Gastrointestinal: non tender, distended (minimal); No guarding Extremity: No Calf Tenderness, Other (diffuse leg and arm tenderness) Neurologic/Psychiatric: Alert, Oriented x3 Skin: Normal Color, Warm/Dry, Other (scattered brusing) Lymphatic: No Adenopathy Results Lab Laboratory Tests 12/11/21 14:32: Urine Color REDH, Urine Clarity CLEAR, Urine pH 7.0, Urine Specific [place] 1.015L, Urine Protein 2+H, Urine Glucose (UA) NEGATIVE, Urine Ketones NEGATIVE, Urine Nitrite POSITIVEH, Urine Bilirubin NEGATIVE, Urine Urobilinogen 0.2, Urine Leukocyte Esterase TRACEH, Urine RBC (Auto) 3+H, Urine RBC TNTCH, Urine WBC 0-2, Urine Squamous Epithelial Cells NONE, Urine Crystals NONE, Urine Bacteria NEGATIVE, Urine Casts NONE, Urine Mucus NEGATIVE, Urine Culture Indicated NO 12/12/21 05:34: White Blood Count 24.3H, Red Blood Count 2.27L, Hemoglobin 6.3*L, Hematocrit 20*L, Mean Corpuscular Volume 88, Mean Corpuscular Hemoglobin 28, Mean Corpuscular Hemoglobin Concent 32, Red Cell Distribution Width 21.2H, Platelet Count 2*L, Mean Platelet Volume , Immature Granulocyte % (Auto) 16, Neutrophils (%) (Auto) 49, Lymphocytes (%) (Auto) 14, Monocytes (%) (Auto) 21H, Eosinophils (%) (Auto) 0, Basophils (%) (Auto) 1, Neutrophils # (Auto) 11.9H, Lymphocytes # (Auto) 3.3, Monocytes # (Auto) 5.0H, Eosinophils # (Auto) 0.0, Basophils # (Auto) 0.2H, Immature Granulocyte # (Auto) 3.9H, Percent Immature Platelet Fraction 19.7H, Sodium Level 133L, Potassium Level 3.8, Chloride Level 102, Carbon Dioxide Level 20L, Anion Gap 11, Blood Urea Nitrogen 10, Creatinine 1.10, Estimat Glomerular Filtration Rate 81, BUN/Creatinine Ratio 9, Glucose Level 97, Calcium Level 7.3L, Corrected Calcium 8.6, Phosphorus Level 2.6, Magnesium Level 2.0, Total Bilirubin 1.0, Aspartate Amino Transf (AST/SGOT) 65H, Alanine Aminotransferase (ALT/SGPT) 40, Alkaline Phosphatase 224H, Total Protein 4.4L, Albumin 2.4L Microbiology 12/07/21 MRSA Screen - Final, Complete MRSA not isolated 12/06/21 Blood Culture - Preliminary, Resulted No growth 12/06/21 Urine Culture - Final, Complete NO GROWTH Assessment/Plan Assessment/Plan Assessment/Plan colitis-right colon sepsis AML thrombocytopenia anemia leukocytosis LUIS ENRIQUE cough hematuria Continue current abx- being recultured due to fever and increasing wbc, on last day of metronidazole diet as tolerates as ct scan appears improved from colitis standpoint and he is not having abdominal pain. Fentanyl, morphine for pain control Continue IV fluids, coude catheter placed 12/07, has been started on Flomax by urology, monitor urinary output Received 1 unit of platelets 12/09, 2 Units of platelets given on 12/07 and 1 unit on 12/06, 2 units of pRBCs given 12/07. Continue to monitor platelet levels in addition to WBC and Hgb Taking Zofran PRN for nausea and Protonix for GI prophylaxis Abdominal CT done 12/10, according to radiology, showed Trace bilateral pleural effusions with right basilar subsegmental atelectasis, mild right-sided hydroureteronephrosis with peripelvic and periureteral inflammatory stranding, and small amount of free fluid in abdomen and pelvis. Being followed by heme/onc and urology He has been recommended palliative care due to AML. Pt is still wanting to try to get to [facility]. Prognosis may be poor. Patent likely not able to clear infection. RENEE BIGGS DO 12/12/212122: Subjective Subjective/Events-last exam Patient continues to have epistasis hematuria. He is surrounded by his family. He is fatigued and just not feeling well. He denies any abdominal pain nausea or vomiting at this time. Patient wanting chicken noodle soup. Patient and family have discussed and are going to proceed with comfort care measures. Objective Exam General Appearance: Chronically ill, Other (Appears fatigued) HEENT: PERRL/EOMI, Other (blood in nares, worse in left) Neck: Non Tender, Supple Respiratory: Chest Non Tender, No Accessory Muscle Use, No Respiratory Distress Cardiovascular: No JVD, Tachycardia Gastrointestinal: non tender, distended (minimal); No guarding Extremity: Non Tender, No Calf Tenderness, Other (diffuse leg and arm tenderness) Neurologic/Psychiatric: Alert, Oriented x3 Skin: Warm/Dry, Other (scattered brusing) Lymphatic: No Adenopathy Assessment/Plan Assessment/Plan Assessment/Plan colitis-right colon sepsis AML thrombocytopenia anemia leukocytosis LUIS ENRIQUE cough hematuria Patient continues to worsen overall. Continues to have significant epistasis and hematuria. Do not feel her overall prognosis is poor. Patient family present at bedside and patient family and patient have decided to proceed with comfort care which I feel is most appropriate. All questions answered for patient and family. Will sign off call if needed. Supervisory-Addendum Brief Verification & Attestation Participated in pt care: history, MDM, physical Personally performed: exam, history, MDM, supervision of care Care discussed with: Medical Student Procedures: n/a Results interpretation: Verified all documentation Verification and Attestation of Medical Student E/M Service A medical student performed and documented this service in my presence. I reviewed and verified all information documented by the medical student and made modifications to such information, when appropriate. I personally performed the physical exam and medical decision making. Renee Biggs, Dec 12, 2021,08:22 XANDER BAUER Dec 12, 2021 08:12 RENEE BIGGS DO Dec 12, 2021 21:23
[2021-12-12] MEDS: FLUTICASONE NASAL SPRAY (FLONASE) 16 GM BTL NS SCH (08:47)
[2021-12-12] MEDS: ACETAMINOPHEN 325 MG TABLET PO PRN ×2 (08:47→17:36)
[2021-12-12] MEDS: PANTOPRAZOLE 40 MG (PROTONIX) TAB PO SCH (08:47)
--- NOTE | 2021-12-12 10:29 | Progress Note - Hospitalist ---
Subjective HPI/CC On Admission Date Seen by Provider: Dec 12, 2021 Time Seen by Provider: 10:25 Patient is a 51-year-old man who presented to the emergency department due to diarrhea, nausea, vomiting. [employer] Developer line was used to conduct interview. He reports his symptoms started yesterday. He gives inconsistent answers to multiple questions. He states that he has leukemia but he does not have a cancer doctor and he has only ever been treated by the emergency room. 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 Reviewing records states that he does follow with [facility] and he did not have adequate response to therapy and is on third line treatment. He was informed of palliative nature of treatment by both [facility] and a cancer doctor here Dr. Pan. He did have worsening symptoms this morning and developed a fever of 39.3. He became hypotensive with this as well and was transferred to the ICU. Subjective/Events-last exam Patient with friend at bedside who he requests to be staple processing machine operator for him. We discussed his persistently suboptimal labs and that there is no further treatment options for his AML per [facility] oncology, Dr. Pan here, and Dr. ROBERTO here as well. He states he is feeling worse today he is more tired and is having pain. We discussed that this is the end of his life and all we can control at this point is how he passes. Offered him discharge home with hospice he states he does not have a home to return to. Discussed instead that we will transition to comfort measures here in the hospital. Explained that we will stop checking labs and focus solely on comfort until he passes. He and friend at bedside expressed understanding of this and are in agreement with plan. Outside of the room his brother and nephew asked for an update and I informed them of the new plan. They both expressed understanding and appreciation of care. They states he wants chicken noodle soup and I told them we will get some ordered as soon as possible. Encouraged them to have any family or friends who want to see him come. Objective Exam Vital Signs Vital Signs Date Time Temp Pulse Resp B/P (MAP) Pulse Ox O2 Delivery O2 Flow Rate FiO2 12/12/21 08:01 38.0 120 22 112/72 (85) 94 Room Air 12/10/21 13:00 2.00 2.00 Capillary Refill : Less Than 3 Seconds General Appearance: Chronically ill, Other (ashen appearance) Neck: Other (bleeding from nose) Respiratory: Lungs Clear, No Respiratory Distress Cardiovascular: Regular Rate, Rhythm, No Murmur Neurologic/Psychiatric: Alert, Oriented x3 Results/Procedures Lab Laboratory Tests 12/12/21 05:34 Patient resulted labs reviewed. Imaging: Reviewed Imaging Report Assessment/Plan Assessment and Plan Assess & Plan/Chief Complaint Septic Shock, improving AML, refractory POA Thrombocytopenia, anemia Hematuria Patient agrees to transition to comfort care today Comfort care order set placed Discussed with house sup, will get dark linens if able for bleeding Pallative care consulted, appreciate help DVT ppx: SCDs only due to thrombocytopenia Critical Care Critically Ill Patient Diagnosis/Problems Diagnosis/Problems (1) AML (acute myeloblastic leukemia) Status: Acute Qualifiers: Leukemia Active/Remission status: without remission Qualified Codes: C92.00 - Acute myeloblastic leukemia, not having achieved remission (2) Thrombocytopenia Status: Acute (3) Colitis Status: Acute (4) Nausea vomiting and diarrhea Status: Acute (5) Poor prognosis Status: Acute ERIK RAZO MD Dec 12, 2021 10:29
[2021-12-12] MEDS ORDERED: ARTIFICAL TEARS 0.4 ML UNIT DOSE (REFRESH PLUS) OU PRN (10:30)
[2021-12-12] MEDS ORDERED: ONDANSETRON 4 MG/2 ML (SDV) Z0FRAN IVP PRN (10:30)
[2021-12-12] MEDS ORDERED: morphine (ROXINOL) 10 MG/0.5 ML oral conc 0.5 ML PO PRN (10:30)
[2021-12-12] MEDS ORDERED: RT-ALBUTEROL/IPRATROPIUM 3 ML (DUONEB) VIAL INH PRN (10:30)
[2021-12-12] MEDS ORDERED: morphine INJ 4 MG/ML 1 ML (VIAL/SYRINGE) IV PRN (10:30)
[2021-12-12] MEDS ORDERED: LORazepam ORAL CONCENTRATE 2 MG/ML 30 ML (ATIVAN) PO PRN (10:30)
[2021-12-12] MEDS ORDERED: SALIVA STIMULANT MOUTH SPRAY (BIOTENE) 1.5 OZ MM PRN (10:30)
[2021-12-12] MEDS ORDERED: PROMETHAZINE INJ 25 MG/ML (PHENERGAN) AMP IVP PRN (10:30)
[2021-12-12] MEDS ORDERED: BISACODYL 10 MG SUPP (DULCOLAX) PR PRN (10:30)
[2021-12-12] MEDS ORDERED: ATROPINE 1% OPHTHALMIC SOLN 2 ML SL PRN (10:30)
[2021-12-12] MEDS ORDERED: ACETAMINOPHEN 650 MG SUPP (TYLENOL) PR PRN (10:30)
[2021-12-12] MEDS ORDERED: SCOPOLAMINE 1.5 MG (TRANSDERM-SCOP) PATCH TOP SCH (10:30)
[2021-12-12] MEDS: fentaNYL INJ 100 MCG/2 ML AMP IV PRN ×2 (10:47→12:36)
[2021-12-12] MEDS: morphine INJ 4 MG/ML 1 ML (VIAL/SYRINGE) IV PRN (13:47)
[2021-12-12] MEDS: HYDROmorphone 2 MG/ML VIAL (DILAUDID) IV PRN ×2 (15:05→17:36)
[2021-12-13] MEDS: ACETAMINOPHEN 325 MG TABLET PO PRN ×4 (03:13→20:08)
[2021-12-13] MEDS: PANTOPRAZOLE 40 MG (PROTONIX) TAB PO SCH (09:59)
[2021-12-13] MEDS: FLUTICASONE NASAL SPRAY (FLONASE) 16 GM BTL NS SCH (10:00)
--- NOTE | 2021-12-13 11:46 | Progress Note - Hospitalist ---
Subjective HPI/CC On Admission Date Seen by Provider: Dec 13, 2021 Time Seen by Provider: 11:44 Patient is a 51-year-old man who presented to the emergency department due to diarrhea, nausea, vomiting. Law Enforcement Officer line was used to conduct interview. He reports his symptoms started yesterday. He gives inconsistent answers to multiple questions. He states that he has leukemia but he does not have a cancer doctor and he has only ever been treated by the emergency room. 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 Reviewing records states that he does follow with [facility] and he did not have adequate response to therapy and is on third line treatment. He was informed of palliative nature of treatment by both [facility] and a cancer doctor here Dr. Pan. He did have worsening symptoms this morning and developed a fever of 39.3. He became hypotensive with this as well and was transferred to the ICU. Subjective/Events-last exam Pt lying in bed. No complaints. Pain controlled with current regimen. Objective Exam Vital Signs Vital Signs Date Time Temp Pulse Resp B/P (MAP) Pulse Ox O2 Delivery O2 Flow Rate FiO2 12/13/21 10:00 36.8 12/13/21 08:00 Room Air 12/12/21 08:01 120 22 112/72 (85) 94 12/10/21 13:00 2.00 2.00 Capillary Refill : Less Than 3 Seconds General Appearance: No Apparent Distress Respiratory: Lungs Clear, No Respiratory Distress Cardiovascular: Regular Rate, Rhythm, No Murmur Neurologic/Psychiatric: Alert, Oriented x3 Results/Procedures Lab Patient resulted labs reviewed. Imaging: Reviewed Imaging Report Assessment/Plan Assessment and Plan Assess & Plan/Chief Complaint Septic Shock, improving AML, refractory POA Thrombocytopenia, anemia Hematuria Patient agrees to transition to comfort care today Comfort care order set placed Dilaudid for pain control as morphine was not giving adequate relief Discussed with house sup, will get dark linens if able for bleeding Pallative care consulted, appreciate help DVT ppx: SCDs only due to thrombocytopenia Critical Care Critically Ill Patient Diagnosis/Problems Diagnosis/Problems (1) AML (acute myeloblastic leukemia) Status: Acute Qualifiers: Leukemia Active/Remission status: without remission Qualified Codes: C92.00 - Acute myeloblastic leukemia, not having achieved remission (2) Thrombocytopenia Status: Acute (3) Colitis Status: Acute (4) Nausea vomiting and diarrhea Status: Acute (5) Poor prognosis Status: Acute ERIK RAZO MD Dec 13, 2021 11:46
[2021-12-13] MEDS: HYDROmorphone 2 MG/ML VIAL (DILAUDID) IV PRN (20:16)
[2021-12-14] MEDS: ACETAMINOPHEN 325 MG TABLET PO PRN (02:07)
[2021-12-14] MEDS: HYDROmorphone 2 MG/ML VIAL (DILAUDID) IV PRN ×4 (05:47→22:27)
[2021-12-14] MEDS: PANTOPRAZOLE 40 MG (PROTONIX) TAB PO SCH ×2 (09:00→09:05)
[2021-12-14] MEDS: FLUTICASONE NASAL SPRAY (FLONASE) 16 GM BTL NS SCH ×2 (09:00→09:05)
[2021-12-14] MEDS: LORazepam INJ 2 MG/ML (ATIVAN) VIAL IVP PRN ×2 (10:55→20:35)
--- NOTE | 2021-12-14 19:50 | Progress Note - Hospitalist ---
Subjective HPI/CC On Admission Date Seen by Provider: Dec 14, 2021 Time Seen by Provider: 10:50 Patient is a 51-year-old man who presented to the emergency department due to diarrhea, nausea, vomiting. Power Equipment Mechanics Instructor line was used to conduct interview. He reports his symptoms started yesterday. He gives inconsistent answers to multiple questions. He states that he has leukemia but he does not have a cancer doctor and he has only ever been treated by the emergency room. 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 Reviewing records states that he does follow with [facility] and he did not have adequate response to therapy and is on third line treatment. He was informed of palliative nature of treatment by both [facility] and a cancer doctor here Dr. Pan. He did have worsening symptoms this morning and developed a fever of 39.3. He became hypotensive with this as well and was transferred to the ICU. Subjective/Events-last exam He is sleeping in bed. He does not appear comfortable. He is restless. Objective Exam Vital Signs Vital Signs Date Time Temp Pulse Resp B/P (MAP) Pulse Ox O2 Delivery O2 Flow Rate FiO2 12/14/21 08:00 Room Air 12/14/21 02:37 37.4 12/13/21 20:01 2.00 12/12/21 08:01 120 22 112/72 (85) 94 Capillary Refill : Less Than 3 Seconds General Appearance: WD/WN, Mild Distress (uncomfortable) Respiratory: No Respiratory Distress Gastrointestinal: No Distended, No Guarding Extremity: Normal Inspection, No Pedal Edema Neurologic/Psychiatric: Other (sleeping) Skin: Jaundice Results/Procedures Lab Patient resulted labs reviewed. Assessment/Plan Assessment and Plan Assess & Plan/Chief Complaint Septic shock AML, refractory POA Thrombocytopenia Anemia Hematuria Comfort measures only status Continue comfort care Palliative care following Critical Care Critically Ill Patient Diagnosis/Problems Diagnosis/Problems (1) Comfort measures only status Status: Acute (2) AML (acute myeloblastic leukemia) Status: Acute Qualifiers: Leukemia Active/Remission status: without remission Qualified Codes: C92.00 - Acute myeloblastic leukemia, not having achieved remission (3) Anemia Status: Acute (4) Thrombocytopenia Status: Acute (5) Poor prognosis Status: Acute MOY SANCHEZ MD Dec 14, 2021 19:50
[2021-12-14] MEDS: GLYCOPYRROLATE 0.2 MG/ML (ROBINUL) 2 ML VIAL IV PRN (20:35)
[2021-12-15] MEDS: GLYCOPYRROLATE 0.2 MG/ML (ROBINUL) 2 ML VIAL IV PRN (02:05)
[2021-12-15] MEDS: HYDROmorphone 2 MG/ML VIAL (DILAUDID) IV PRN ×2 (02:06→05:20)
[2021-12-15] MEDS: LORazepam INJ 2 MG/ML (ATIVAN) VIAL IVP PRN ×2 (02:18→05:20)
--- NOTE | 2021-12-15 19:52 | Discharge Summary ---
Discharge Summary Hospital Course Problems/Dx: (1) Comfort measures only status Status: Acute (2) AML (acute myeloblastic leukemia) Status: Acute Qualifiers: Qualified Codes: C92.00 - Acute myeloblastic leukemia, not having achieved remission (3) Anemia Status: Acute (4) Thrombocytopenia Status: Acute (5) Poor prognosis Status: Acute (6) Colitis Status: Acute (7) Septic shock Status: Acute Hospital Course Date of Admission: Dec 07, 2021 at 08:22 Admission Diagnosis : Septic shock, AML Family Physician/Provider: [facility] Date of Discharge: 12/15/21 Discharge Diagnosis: Septic shock, AML Hospital Course: Loco Villa was a 51 year old male with AML who presented with diarrhea and was admitted with septic shock. He was previously treated for AML at [facility] but was refractory to treatment and no other options were available and he was recommended to go on hospice care. Hematology/Oncology was consulted and agreed with [facility] that further treatment was not an option. He had issues with anemia and thrombocytopenia and received several transfusions. He and his family subsequently made the decision to transition to comfort measures only status. He on 12/15/2021 at 0530. Labs and Pending Lab Test: Microbiology 12/11/21 Blood Culture - Preliminary, Resulted No growth 12/07/21 MRSA Screen - Final, Complete MRSA not isolated 12/06/21 Urine Culture - Final, Complete NO GROWTH Home Meds Active Reported Ibuprofen 200 Mg Tablet 400 Mg PO Q6H PRN Tylenol Extra Strength (Acetaminophen) 500 Mg Tablet 500-1,000 Mg PO Q6H PRN Assessment/Pt Instructions Patient Discharge Planning: <30 minutes discharge planning Discharge Physical Examination Vital Signs Vital Signs Date Time Temp Pulse Resp B/P (MAP) Pulse Ox O2 Delivery O2 Flow Rate FiO2 12/14/21 20:40 Room Air 12/14/21 02:37 37.4 12/13/21 20:01 2.00 12/12/21 08:01 120 22 112/72 (85) 94 Allergies: Coded Allergies: No Known Drug Allergies (Unverified , 04/02/20) Discharge Summary Date of Admission Dec 07, 2021 at 08:22 Date of Discharge Dec 15, 2021 at 10:26 Discharge Date: Dec 15, 2021 Discharge Time: 05:30 Admission Diagnosis Sepsis Consults/Procedures Consulations Hematology/Oncology Comfort Measures/ End of Life Care: Comfort Measures Advance Care discuss with: patient, family member (s) Plan: initiate discussion, clarifying prognosis, identified end-of-life goals, developed treatment plan Time spent on discussion (min): 30 Cardiopulmonary Arrest: Cardiorespiratory Arrest Date of : Dec 15, 2021 Time of : 05:30 Discharge Diagnosis Septic shock AML, refractory POA Thrombocytopenia Anemia Hematuria Comfort measures only status Continue comfort care Palliative care following (1) Comfort measures only status Status: Acute (2) AML (acute myeloblastic leukemia) Status: Acute Qualifiers: Qualified Codes: C92.00 - Acute myeloblastic leukemia, not having achieved remission (3) Anemia Status: Acute (4) Thrombocytopenia Status: Acute (5) Poor prognosis Status: Acute (6) Septic shock Status: Acute (7) Colitis Status: Acute MOY SANCHEZ MD Dec 15, 2021 19:49
== END 2021-12-15 05:30 | disposition expired | DRG 871 ==
LOC: EDUNIT# 15:18 → ER 15:23 → 4TH 18:24 → UNDOADMOB 18:24 → 4TH 19:43 → OBSVTOIN 12-07 08:22 → INTOOBSV 12-07 08:22 → 4TH 12-07 08:32 → ICU 12-07 08:32 → 4TH 12-10 14:20 → UNDODISIN 12-15 10:26
PROVIDERS: ADMIT Internal Medicine; ATTEND Internal Medicine
DX: A41.9 Sepsis, unspecified organism (principal); R65.21 Severe sepsis with septic shock; N17.9 Acute kidney failure, unspecified; C92.00 Acute myeloblastic leukemia, not having achieved remission; K52.9 Noninfective gastroenteritis and colitis, unspecified; D69.6 Thrombocytopenia, unspecified; R33.9 Retention of urine, unspecified; Z66 Do not resuscitate; Z51.5 Encounter for palliative care; Z79.899 Other long term (current) drug therapy; K21.9 Gastro-esophageal reflux disease without esophagitis; Z92.21 Personal history of antineoplastic chemotherapy; R05.9 Cough, unspecified; R31.0 Gross hematuria
CPT/HCPCS: 36415; 36569; 71045; 74177; 76937; 80048; 80053; 81000; 83605; 83735; 84100; 85007; 85025; 85027; 85610; 85730; 86141; 86850; 86900; 86901; 86920; 87040; 87081; 87088; 96361; 96365; 96375; G0378